=== PATIENT | female | born 1955 | race African-American/Black ===

== ENCOUNTER → 2016-10-31 | Outpatient (CLI) | payer MEDICARE, MEDICAID ==
[~2016-10-31] MED LIST: CLON0.1T PO; FOS1G PO; INSU100C11 SQ; LEVEMIR; RENAVITE; VICODIN
== END | disposition home or self-care (01) ==
LOC: MRI 13:53
PROVIDERS: ATTEND Neurological Surgery
DX: M47.896 Other spondylosis, lumbar region (principal); M43.16 Spondylolisthesis, lumbar region; M48.06 Spinal stenosis, lumbar region; M51.36 Other intervertebral disc degeneration, lumbar region
CPT/HCPCS: 72148

== ENCOUNTER → 2016-11-08 | Outpatient (CLI) | payer MEDICARE, MEDICAID | END | disposition home or self-care (01) | LOC: RAD 09:44 | PROVIDERS: ATTEND Neurological Surgery | DX: Z01.818 Encounter for other preprocedural examination (principal); I51.7 Cardiomegaly; M48.06 Spinal stenosis, lumbar region; J98.11 Atelectasis; Z98.1 Arthrodesis status | CPT/HCPCS: 71020; 93005 ==

== ENCOUNTER → 2016-11-12 | Outpatient (CLI) | payer MEDICARE, MEDICAID ==
[~2016-11-12] MED LIST changes: +AMLO10TA80 PO; +ATOR20TA65 PO; +CHOL500010 PO; +DIPH50CA4 PO; +DULO60CA63 PO; +ESTR1TAB95 PO; +FOLI1TAB87 PO; +GABA800T97 PO; +HYDR-4005; +LATA2.5D2 BOTHEYE; +NPH,100V SQ; +SEVE800T8 PO; +VALS160T23 PO
[2016-11-12 12:40] LABS: PROTHROMBIN TIME 10.4 sec
[2016-11-12 12:43] LABS: BASOPHILS % 0.7 % (0.0-2.0); EOSINOPHILS % 1.5 % (0.0-5.0); HEMATOCRIT. 35.4 % (36.0-48.0); HEMOGLOBIN. 11.5 g/dL (12.0-16.0); LYMPHOCYTES % 21.6 % (20.0-50.0); MEAN CORPUSCULAR HEMOGLOBIN 28.1 pg (28.0-32.0); MEAN CORPUSCULAR HGB CONC 32.3 g/dL (31.0-37.0); MEAN PLATELET VOLUME 7.6 fl (7.4-10.4); MONOCYTES % 6.5 % (2.0-8.0); NEUTROPHILS % 69.7 % (40.0-76.0); PLATELET 297 x1000/uL (130-400); RED BLOOD CELL COUNT 4.07 mill/uL (4.2-5.4); RED CELL DISTRIBUTION WIDTH 19.4 % (11.6-14.6); WHITE BLOOD COUNT 8.7 x1000/uL (4.5-11.0)
[2016-11-12 12:49] LABS: DIFFERENTIAL COMMENT 1
[2016-11-12 13:03] LABS: ALANINE AMINOTRANSFERASE 27 IU/L (13-61); ALBUMIN 3.2 g/dL (3.4-5.0); ANION GAP 14; CALCIUM 8.9 mg/dL (8.5-10.1); CARBON DIOXIDE 34 mEq/L (21-32); CHLORIDE 92 mEq/L (98-107); INDEX HEMOLYSI 2 (1-3); INDEX ICTERIC 1 (1-4); INDEX LIPEMIC 1 (1-3); UREA NITROGEN BLOOD 17 mg/dL (7-21); eGFR 8 mL/min (>60)
== END | disposition home or self-care (01) ==
LOC: LAB 12:01
PROVIDERS: ATTEND Neurological Surgery
DX: M48.06 Spinal stenosis, lumbar region (principal); M43.26 Fusion of spine, lumbar region
CPT/HCPCS: 36415; 80053; 85025; 85610; 85730; 86850; 86900

== ENCOUNTER 2016-11-18 05:19 | Inpatient (IN) | payer MEDICARE, MEDICAID ==
[~2016-11-18] VITALS: Ht 162.6 cm; Wt 98.0 kg
[~2016-11-18 05:19] MED LIST changes: -AMLO10TA80 PO; -ATOR20TA65 PO; -CHOL500010 PO; -DIPH50CA4 PO; -DULO60CA63 PO; -ESTR1TAB95 PO; -FOLI1TAB87 PO; -GABA800T97 PO; -HYDR-4005; -LATA2.5D2 BOTHEYE; -NPH,100V SQ; -SEVE800T8 PO; -VALS160T23 PO
[2016-11-18] MEDS ORDERED: INSULIN NPH (HUMULIN-N) 100 UNITS/ML 3ML VIAL SUBCUT ONE (06:45)
[2016-11-18] MEDS ORDERED: DEXT 5%/0.45% NACL 1000ML 1,000 ML IV SCH (06:59)
[2016-11-18] MEDS ORDERED: SODIUM CHLORIDE 0.9% 500 ML IV ONE (07:00)
[2016-11-18] MEDS ORDERED: DEXTROSE 50% WATER 50ML SYRINGE IV PRN (07:00)
[2016-11-18] MEDS ORDERED: DOCUSATE SODIUM 100MG CAPSULE PO PRN (07:00)
[2016-11-18] MEDS ORDERED: MORPHINE SULFATE 2 MG/ML CPJ (NOT FOR IM USE) IV PRN (07:30)
[2016-11-18] MEDS ORDERED: CEFAZOLIN SODIUM 1000MG/VIAL ONE (08:02)
[2016-11-18] MEDS ORDERED: ROCURONIUM BROMIDE 10MG/ML VIAL 5ML IV ONE (08:02)
[2016-11-18] MEDS ORDERED: DEXAMETHASONE 4MG/ML 1ML VIAL ONE (08:02)
[2016-11-18] MEDS ORDERED: CHOL500010 PO (08:45)
[2016-11-18] MEDS: BLOOD SUGAR DIAGNOSTIC STRIP TEST SCH ×4 (08:45→21:00)
[2016-11-18] MEDS ORDERED: ATOR20TA65 PO (08:45)
[2016-11-18] MEDS ORDERED: AMLO10TA80 PO (08:45)
[2016-11-18] MEDS ORDERED: FOLI1TAB87 PO (08:45)
[2016-11-18] MEDS ORDERED: SEVE800T8 PO (08:45)
[2016-11-18] MEDS ORDERED: ESTR1TAB95 PO (08:45)
[2016-11-18] MEDS ORDERED: DULO60CA63 PO (08:45)
[2016-11-18] MEDS ORDERED: NPH,100V SQ (08:45)
[2016-11-18] MEDS ORDERED: DIPH50CA4 PO (08:45)
[2016-11-18] MEDS ORDERED: VALS160T23 PO (08:45)
[2016-11-18] MEDS ORDERED: GABA800T97 PO (08:47)
[2016-11-18] MEDS ORDERED: HYDR-4005 (08:50)
[2016-11-18] MEDS ORDERED: NEOSTIGMINE METHYLSULFATE 1MG/ML 10 ML VIAL ONE (09:50)
[2016-11-18] MEDS ORDERED: GLYCOPYRROLATE 0.2 MG/ML 2ML VIAL ONE (09:50)
[2016-11-18] MEDS ORDERED: VASOPRESSIN 20 UNIT/ML 1ML ONE (10:19)
[2016-11-18] MEDS: INSULIN LISPRO 100 UNITS/ML SUBCUT SCH ×3 (12:00→22:39)
[2016-11-18] MEDS: ONDANSETRON HCL 4MG/2ML VIAL IV PRN (12:47)
[2016-11-18] MEDS: HYDROCODONE/ACETAMINOPHEN 10/325MG TABLET PO PRN (12:48)
[2016-11-18] MEDS ORDERED: CEFAZOLIN SODIUM 1000MG/VIAL IV SCH (14:00)
[2016-11-18 17:08] LABS: HEMATOCRIT. 31.8 % (36.0-48.0); HEMOGLOBIN. 10.3 g/dL (12.0-16.0); MEAN CORPUSCULAR HGB CONC 32.2 g/dL (31.0-37.0); MEAN CORPUSCULAR VOLUME 89.9 fL (81.0-99.0); MEAN PLATELET VOLUME 8.5 fl (7.4-10.4); PLATELET 170 x1000/uL (130-400); RED BLOOD CELL COUNT 3.54 mill/uL (4.2-5.4); RED CELL DISTRIBUTION WIDTH 27.2 % (11.6-14.6); WHITE BLOOD COUNT 11.9 x1000/uL (4.5-11.0)
[2016-11-18 17:09] LABS: DIFFERENTIAL COMMENT 1
[2016-11-18] MEDS: DIPHENHYDRAMINE 50MG/ML VIAL IV PRN (18:34)
[2016-11-18] MEDS: HYDROMORPHONE HCL/PF 2MG/ML CPJ IV PRN (18:35)
[2016-11-18] MEDS: CLONIDINE 0.1MG TABLET PO PRN (18:36)
[2016-11-18 20:56] LABS: PLATELET ESTIMATE NORMAL
[2016-11-18 20:59] LABS: ANISOCYTOSIS 3+; HYPOCHROMASIA 1+
[2016-11-19] MEDS: IPRATROPIUM/ALBUTEROL 0.5-3(2.5)MG/3ML NEB INH SCH ×4 (00:16→20:27)
[2016-11-19] MEDS: DIPHENHYDRAMINE 50MG/ML VIAL IV PRN ×3 (00:27→20:46)
[2016-11-19] MEDS: HYDROMORPHONE HCL/PF 2MG/ML CPJ IV PRN ×4 (02:48→18:03)
[2016-11-19] MEDS: ACETAMINOPHEN 325MG TABLET PO PRN (03:18)
[2016-11-19 05:40] LABS: BASOPHILS % 0.3 % (0.0-2.0); HEMATOCRIT. 31.2 % (36.0-48.0); HEMOGLOBIN. 10.1 g/dL (12.0-16.0); LYMPHOCYTES % 8.2 % (20.0-50.0); MEAN CORPUSCULAR HEMOGLOBIN 29.6 pg (28.0-32.0); MEAN CORPUSCULAR HGB CONC 32.5 g/dL (31.0-37.0); MEAN CORPUSCULAR VOLUME 91.2 fL (81.0-99.0); MONOCYTES % 5.3 % (2.0-8.0); NEUTROPHILS % 86.2 % (40.0-76.0); RED BLOOD CELL COUNT 3.42 mill/uL (4.2-5.4); RED CELL DISTRIBUTION WIDTH 27.6 % (11.6-14.6)
[2016-11-19 05:50] LABS: ALANINE AMINOTRANSFERASE 32 IU/L (13-61); ALBUMIN 3.1 g/dL (3.4-5.0); ANION GAP 20; CALCIUM 8.2 mg/dL (8.5-10.1); CARBON DIOXIDE 23 mEq/L (21-32); CHLORIDE 97 mEq/L (98-107); INDEX HEMOLYSI 2 (1-3); INDEX ICTERIC 1 (1-4); INDEX LIPEMIC 1 (1-3); UREA NITROGEN BLOOD 35 mg/dL (7-21); eGFR 6 mL/min (>60)
[2016-11-19] MEDS: BLOOD SUGAR DIAGNOSTIC STRIP TEST SCH ×4 (05:57→20:47)
[2016-11-19 06:08] LABS: DIFFERENTIAL COMMENT 1
[2016-11-19] MEDS: INSULIN LISPRO 100 UNITS/ML SUBCUT SCH ×4 (06:32→20:45)
[2016-11-19] MEDS ORDERED: CEFAZOLIN 1000MG PREMIX 50 ML IV SCH (08:00)
[2016-11-19] MEDS ORDERED: LACTULOSE 20G/30ML UDC PO PRN (11:00)
[2016-11-19] MEDS ORDERED: [UNRECOGNIZED DRUG - OTHER] PO SCH (11:15)
[2016-11-19] MEDS ORDERED: SEVELAMER CARBONATE 800 MG TABLET PO SCH (12:00)
[2016-11-19] MEDS ORDERED: MEDICATION NOT ON FORMULARY EA (Cholecalciferol (Vitamin D3) (Vitamin D3) 5,000 UNIT) PO SCH (13:15)
[2016-11-19] MEDS ORDERED: MEDICATION NOT ON FORMULARY EA (Folic Acid/Vitamin B Comp W-C (Rena-Vite Rx Tablet) 1 MG PO SCH (13:15)
[2016-11-19] MEDS ORDERED: LATA2.5D2 BOTHEYE (13:18)
[2016-11-19] MEDS: FOLIC ACID/VITAMIN B COMP W-C TABLET PO SCH (14:35)
[2016-11-19] MEDS: DULOXETINE HCL 60MG DR CAPSULE PO SCH (14:35)
[2016-11-19] MEDS: ATORVASTATIN CALCIUM 20MG TABLET PO SCH (14:35)
[2016-11-19] MEDS: ONDANSETRON HCL 4MG/2ML VIAL IV PRN (15:57)
[2016-11-19] MEDS: LORAZEPAM 2MG/ML CPJ IV PRN (16:01)
[2016-11-19] MEDS ORDERED: LANTHANUM CARBONATE 1000 MG PO SCH (17:00)
[2016-11-19] MEDS: LANTHANUM CARBONATE 500MG CHEW TABLET PO SCH (17:48)
[2016-11-19] MEDS: HYDROCODONE/ACETAMINOPHEN 10/325MG TABLET PO PRN (20:44)
[2016-11-19] MEDS ORDERED: LOSARTAN POTASSIUM 100 MG TABLET PO SCH (21:30)
[2016-11-20] MEDS: HYDROMORPHONE HCL/PF 2MG/ML CPJ IV PRN ×4 (00:26→21:04)
[2016-11-20] MEDS: LORAZEPAM 2MG/ML CPJ IV PRN ×2 (00:35→18:19)
[2016-11-20 00:42] LABS: CREATINE KINASE MB FRACTION 2.8 ng/mL (0.5-3.6)
[2016-11-20 00:46] LABS: T4 FREE 1.93 ng/dL (0.76-1.46); THYROID STIMULATING HORMONE 0.51 uIU/mL (0.36-3.74)
[2016-11-20 02:04] LABS: TROPONIN I 0.44 ng/mL (0.00-0.04)
[2016-11-20 05:41] LABS: BASOPHILS % 0.5 % (0.0-2.0); HEMATOCRIT. 26.1 % (36.0-48.0); HEMOGLOBIN. 8.2 g/dL (12.0-16.0); LYMPHOCYTES % 10.7 % (20.0-50.0); MEAN CORPUSCULAR HEMOGLOBIN 28.6 pg (28.0-32.0); MEAN CORPUSCULAR HGB CONC 31.3 g/dL (31.0-37.0); MEAN CORPUSCULAR VOLUME 91.3 fL (81.0-99.0); MEAN PLATELET VOLUME 8.6 fl (7.4-10.4); MONOCYTES % 13.4 % (2.0-8.0); NEUTROPHILS % 75.4 % (40.0-76.0); PLATELET 127 x1000/uL (130-400); RED BLOOD CELL COUNT 2.86 mill/uL (4.2-5.4); RED CELL DISTRIBUTION WIDTH 26.7 % (11.6-14.6)
[2016-11-20 05:50] LABS: DIFFERENTIAL COMMENT 1
[2016-11-20] MEDS: BLOOD SUGAR DIAGNOSTIC STRIP TEST SCH ×4 (06:24→21:00)
[2016-11-20 06:36] LABS: CREATINE KINASE MB FRACTION 1.9 ng/mL (0.5-3.6); TROPONIN I 0.3 ng/mL (0.00-0.04)
[2016-11-20] MEDS: INSULIN LISPRO 100 UNITS/ML SUBCUT SCH ×4 (06:49→21:00)
[2016-11-20 06:59] LABS: CALCIUM 7.7 mg/dL (8.5-10.1)
[2016-11-20] MEDS: IPRATROPIUM/ALBUTEROL 0.5-3(2.5)MG/3ML NEB INH SCH ×3 (07:40→20:29)
[2016-11-20] MEDS ORDERED: CHOLECALCIFEROL (D3) 1000 UNIT TABLET PO SCH (09:00)
[2016-11-20] MEDS ORDERED: VALSARTAN 160 MG PO SCH (09:00)
[2016-11-20] MEDS ORDERED: ERGOCALCIFEROL 50000UNITS CAPSULE PO SCH (09:00)
[2016-11-20 09:20] LABS: BASOPHILS % 0.9 % (0.0-2.0); EOSINOPHILS % 0.1 % (0.0-5.0); HEMATOCRIT. 26.6 % (36.0-48.0); HEMOGLOBIN. 8.8 g/dL (12.0-16.0); LYMPHOCYTES % 8.8 % (20.0-50.0); MEAN CORPUSCULAR HEMOGLOBIN 29.3 pg (28.0-32.0); MEAN CORPUSCULAR HGB CONC 32.9 g/dL (31.0-37.0); MEAN PLATELET VOLUME 8.4 fl (7.4-10.4); MONOCYTES % 12.2 % (2.0-8.0); PLATELET 161 x1000/uL (130-400); RED BLOOD CELL COUNT 2.99 mill/uL (4.2-5.4); RED CELL DISTRIBUTION WIDTH 26.9 % (11.6-14.6); WHITE BLOOD COUNT 14.6 x1000/uL (4.5-11.0)
[2016-11-20 09:22] LABS: DIFFERENTIAL COMMENT 1
[2016-11-20] MEDS: LOSARTAN POTASSIUM 100 MG TABLET PO SCH (09:36)
[2016-11-20] MEDS: LANTHANUM CARBONATE 500MG CHEW TABLET PO SCH ×3 (09:37→18:19)
[2016-11-20] MEDS: ATORVASTATIN CALCIUM 20MG TABLET PO SCH (09:37)
[2016-11-20] MEDS: FOLIC ACID/VITAMIN B COMP W-C TABLET PO SCH (09:37)
[2016-11-20] MEDS: AMLODIPINE 10MG TABLET PO SCH (09:37)
[2016-11-20] MEDS: DULOXETINE HCL 60MG DR CAPSULE PO SCH (09:37)
[2016-11-20] MEDS: INSULIN NPH (HUMULIN-N) 100 UNITS/ML 3ML VIAL SUBCUT SCH (09:47)
[2016-11-20] MEDS: ESTROGENS,CONJUGATED 0.625MG TABLET PO SCH (12:41)
[2016-11-20] MEDS: MEDROXYPROGESTERONE ACET 2.5MG TABLET PO SCH (12:41)
[2016-11-20] MEDS: HYDROCODONE/ACETAMINOPHEN 10/325MG TABLET PO PRN (12:43)
[2016-11-20] MEDS: CLONIDINE 0.1MG TABLET PO PRN (16:22)
[2016-11-20 16:35] LABS: CREATINE KINASE MB FRACTION 1.6 ng/mL (0.5-3.6); TROPONIN I 0.25 ng/mL (0.00-0.04)
[2016-11-20] MEDS ORDERED: EPOETIN ALFA 10000UNITS/ML VIAL SUBCUT SCH (21:00)
[2016-11-21] MEDS: LORAZEPAM 2MG/ML CPJ IV PRN ×2 (00:20→13:23)
[2016-11-21] MEDS: HYDROMORPHONE HCL/PF 2MG/ML CPJ IV PRN ×3 (00:57→17:10)
[2016-11-21] MEDS: IPRATROPIUM/ALBUTEROL 0.5-3(2.5)MG/3ML NEB INH SCH ×5 (01:23→21:55)
[2016-11-21] MEDS: DIPHENHYDRAMINE 50MG/ML VIAL IV PRN (05:57)
[2016-11-21 07:04] LABS: BASOPHILS % 0.3 % (0.0-2.0); EOSINOPHILS % 0.3 % (0.0-5.0); HEMOGLOBIN. 8.1 g/dL (12.0-16.0); LYMPHOCYTES % 11.6 % (20.0-50.0); MEAN CORPUSCULAR HEMOGLOBIN 28.6 pg (28.0-32.0); MEAN CORPUSCULAR HGB CONC 32.3 g/dL (31.0-37.0); MEAN CORPUSCULAR VOLUME 88.6 fL (81.0-99.0); MEAN PLATELET VOLUME 9.2 fl (7.4-10.4); MONOCYTES % 10.2 % (2.0-8.0); NEUTROPHILS % 77.6 % (40.0-76.0); PLATELET 169 x1000/uL (130-400); RED BLOOD CELL COUNT 2.82 mill/uL (4.2-5.4); WHITE BLOOD COUNT 13.1 x1000/uL (4.5-11.0)
[2016-11-21 07:21] LABS: DIFFERENTIAL COMMENT 1
[2016-11-21] MEDS: BLOOD SUGAR DIAGNOSTIC STRIP TEST SCH ×4 (07:42→21:00)
[2016-11-21] MEDS: INSULIN LISPRO 100 UNITS/ML SUBCUT SCH ×4 (08:10→23:58)
[2016-11-21 08:38] LABS: CALCIUM 8.2 mg/dL (8.5-10.1)
[2016-11-21] MEDS: INSULIN NPH (HUMULIN-N) 100 UNITS/ML 3ML VIAL SUBCUT SCH (09:00)
[2016-11-21] MEDS: AMLODIPINE 10MG TABLET PO SCH (09:00)
[2016-11-21] MEDS: LOSARTAN POTASSIUM 100 MG TABLET PO SCH (09:19)
[2016-11-21] MEDS: ESTROGENS,CONJUGATED 0.625MG TABLET PO SCH (09:19)
[2016-11-21] MEDS: LANTHANUM CARBONATE 500MG CHEW TABLET PO SCH ×3 (09:19→18:32)
[2016-11-21] MEDS: ATORVASTATIN CALCIUM 20MG TABLET PO SCH (09:22)
[2016-11-21] MEDS: FOLIC ACID/VITAMIN B COMP W-C TABLET PO SCH (09:22)
[2016-11-21] MEDS: DULOXETINE HCL 60MG DR CAPSULE PO SCH (09:31)
[2016-11-21] MEDS: ACETAMINOPHEN 325MG TABLET PO PRN (21:12)
[2016-11-22] MEDS: HYDROCODONE/ACETAMINOPHEN 10/325MG TABLET PO PRN ×2 (01:00→12:09)
[2016-11-22] MEDS: IPRATROPIUM/ALBUTEROL 0.5-3(2.5)MG/3ML NEB INH SCH (02:58)
[2016-11-22] MEDS: BLOOD SUGAR DIAGNOSTIC STRIP TEST SCH (07:08)
[2016-11-22 07:17] LABS: BASOPHILS % 0.4 % (0.0-2.0); EOSINOPHILS % 0.8 % (0.0-5.0); HEMATOCRIT. 27.2 % (36.0-48.0); HEMOGLOBIN. 8.8 g/dL (12.0-16.0); LYMPHOCYTES % 10.9 % (20.0-50.0); MEAN CORPUSCULAR HEMOGLOBIN 28.4 pg (28.0-32.0); MEAN CORPUSCULAR HGB CONC 32.5 g/dL (31.0-37.0); MEAN CORPUSCULAR VOLUME 87.2 fL (81.0-99.0); MEAN PLATELET VOLUME 8.9 fl (7.4-10.4); MONOCYTES % 11.6 % (2.0-8.0); NEUTROPHILS % 76.3 % (40.0-76.0); PLATELET 200 x1000/uL (130-400); RED BLOOD CELL COUNT 3.12 mill/uL (4.2-5.4); RED CELL DISTRIBUTION WIDTH 22.9 % (11.6-14.6); WHITE BLOOD COUNT 11.7 x1000/uL (4.5-11.0)
[2016-11-22 07:46] LABS: CALCIUM 8.8 mg/dL (8.5-10.1)
[2016-11-22 07:49] LABS: DIFFERENTIAL COMMENT 1
[2016-11-22] MEDS: INSULIN LISPRO 100 UNITS/ML SUBCUT SCH (07:50)
[2016-11-22 07:51] LABS: ADD RBC MORPHOLOGY YES
[2016-11-22] MEDS: LOSARTAN POTASSIUM 100 MG TABLET PO SCH (09:51)
[2016-11-22] MEDS: LANTHANUM CARBONATE 500MG CHEW TABLET PO SCH (09:52)
[2016-11-22] MEDS: DULOXETINE HCL 60MG DR CAPSULE PO SCH (09:52)
[2016-11-22] MEDS: ESTROGENS,CONJUGATED 0.625MG TABLET PO SCH (09:52)
[2016-11-22] MEDS: ATORVASTATIN CALCIUM 20MG TABLET PO SCH (09:52)
[2016-11-22] MEDS: MEDROXYPROGESTERONE ACET 2.5MG TABLET PO SCH (09:53)
[2016-11-22] MEDS: AMLODIPINE 10MG TABLET PO SCH (09:53)
[2016-11-22] MEDS: FOLIC ACID/VITAMIN B COMP W-C TABLET PO SCH (09:53)
[2016-11-22] MEDS: INSULIN NPH (HUMULIN-N) 100 UNITS/ML 3ML VIAL SUBCUT SCH (09:55)
[2016-11-22 12:09] VITALS: BP 143/66
[2016-11-22 13:37] LABS: ANISOCYTOSIS 3+; PLATELET ESTIMATE NORMAL
== END 2016-11-22 12:15 | disposition home or self-care (01) | DRG 459 ==
LOC: OR 05:19 → MICUSO 05:20 → 7WST 11-20 22:04 → 6EST 11-21 10:42
PROVIDERS: ADMIT Neurological Surgery; ATTEND Neurological Surgery
PROC: 0SG0071 Fusion of Lumbar Vertebral Joint with Autologous Tissue Substitute, Posterior Approach, Posterior Column, Open Approach (ICD-10-PCS; 2016-11-18)
PROC: 5A1D60Z (ICD-10-PCS; 2016-11-18)
PROC: 0SG00ZJ (ICD-10-PCS; 2016-11-18)
PROC: 0ST20ZZ Resection of Lumbar Vertebral Disc, Open Approach (ICD-10-PCS; principal; 2016-11-18 07:00)
PROC: 30233N1 Transfusion of Nonautologous Red Blood Cells into Peripheral Vein, Percutaneous Approach (ICD-10-PCS; 2016-11-21)
DX: M48.06 Spinal stenosis, lumbar region (principal); N18.6 End stage renal disease; I12.0 Hypertensive chronic kidney disease with stage 5 chronic kidney disease or end stage renal disease; E46 Unspecified protein-calorie malnutrition; E11.22 Type 2 diabetes mellitus with diabetic chronic kidney disease; Z99.2 Dependence on renal dialysis; G57.92 Unspecified mononeuropathy of left lower limb; E87.5 Hyperkalemia; D64.9 Anemia, unspecified; D72.829 Elevated white blood cell count, unspecified; E55.9 Vitamin D deficiency, unspecified; E78.5 Hyperlipidemia, unspecified; F32.9 Major depressive disorder, single episode, unspecified; F41.9 Anxiety disorder, unspecified; G89.4 Chronic pain syndrome; R26.9 Unspecified abnormalities of gait and mobility; M47.896 Other spondylosis, lumbar region; Z88.5 Allergy status to narcotic agent; M47.9 Spondylosis, unspecified; M43.16 Spondylolisthesis, lumbar region
CPT/HCPCS: 36415; 72100; 80048; 80053; 80061; 82550; 82553; 82962; 83036; 83880; 84439; 84443; 84484; 85025; 85379; 86850; 86900; 86920; 87040; 88304; 88311; 93005; 93306; 93970; 94640; 95863; 95925; 95926; 97110; 97162; 97166; 97530; 97760; C1713; J0690; J0885; J1100; J1170; J1200; J1815; J2060; J2270; J2405; J2710; J3490; J7030; J7040; J7050; J7620; P9016

== ENCOUNTER → 2017-02-13 | Outpatient (CLI) | payer MEDICARE, MEDICAID ==
[~2017-02-13] MED LIST changes: +AMLO10TA80 PO; +ATOR20TA65 PO; +CHOL500010 PO; +DIPH50CA4 PO; +DULO60CA63 PO; +ESTR1TAB95 PO; +FOLI1TAB87 PO; +GABA800T97 PO; -INSU100C11 SQ; +LATA2.5D2 BOTHEYE; -LEVEMIR; +NPH,100V SQ; -RENAVITE; +SEVE800T8 PO; +VALS160T23 PO; -VICODIN
== END | disposition home or self-care (01) ==
LOC: RAD 12:00
PROVIDERS: ATTEND Neurological Surgery
DX: M54.5 Low back pain (principal); K57.90 Diverticulosis of intestine, part unspecified, without perforation or abscess without bleeding; I12.0 Hypertensive chronic kidney disease with stage 5 chronic kidney disease or end stage renal disease; E11.22 Type 2 diabetes mellitus with diabetic chronic kidney disease; N18.6 End stage renal disease; Z99.2 Dependence on renal dialysis; D64.9 Anemia, unspecified; Z98.890 Other specified postprocedural states
CPT/HCPCS: 72114

== ENCOUNTER 2017-05-07 10:56 | Inpatient (IN) | payer MEDICARE, MEDICAID ==
[~2017-05-07] VITALS: Ht 167.6 cm; Wt 88.0 kg
[2017-05-07] MEDS ORDERED: ONDANSETRON HCL 4MG/2ML VIAL IV STA (12:40)
[2017-05-07] MEDS ORDERED: MORPHINE SULFATE 4 MG/ML CPJ (NOT FOR IM USE) IV STA (12:40)
[2017-05-07] MEDS ORDERED: MORPHINE SULFATE 2 MG/ML CPJ (NOT FOR IM USE) IV NR ×2 (13:00→16:00)
[2017-05-07 13:23] LABS: EOSINOPHILS % 1.7 % (0.0-5.0); HEMATOCRIT. 36.5 % (36.0-48.0); HEMOGLOBIN. 11.9 g/dL (12.0-16.0); MEAN CORPUSCULAR HEMOGLOBIN 28.3 pg (28.0-32.0); MEAN CORPUSCULAR VOLUME 86.6 fL (81.0-99.0); MEAN PLATELET VOLUME 8.4 fl (7.4-10.4); MONOCYTES % 7.7 % (2.0-8.0); NEUTROPHILS % 71.6 % (40.0-76.0); PLATELET 205 x1000/uL (130-400); RED BLOOD CELL COUNT 4.21 mill/uL (4.2-5.4); RED CELL DISTRIBUTION WIDTH 24.8 % (11.6-14.6)
[2017-05-07 13:29] LABS: CHLORIDE 98 mEq/L (98-107)
[2017-05-07 13:35] LABS: CARBON DIOXIDE 25 mEq/L (21-32)
[2017-05-07 13:48] LABS: PLATELET ESTIMATE NORMAL
[2017-05-07] MEDS ORDERED: IOHEXOL-300 100 ML BOTTLE ONE (14:55)
[2017-05-07 14:57] LABS: PARTIAL THROMBOPLASTIN TIME 27.8 sec (23.4-31.0); PROTHROMBIN TIME 10.1 sec (9.4-11.6)
[2017-05-07] MEDS ORDERED: MORPHINE SULFATE 4 MG/ML CPJ (NOT FOR IM USE) IV ONE (16:00)
[2017-05-07] MEDS ORDERED: ACETAMINOPHEN 325MG TABLET PO PRN (17:45)
[2017-05-07] MEDS ORDERED: DIPHENHYDRAMINE 50MG/ML VIAL IV PRN (17:45)
[2017-05-07] MEDS ORDERED: CLONIDINE 0.1MG TABLET PO PRN (17:45)
[2017-05-07] MEDS ORDERED: ONDANSETRON HCL 4MG/2ML VIAL IV PRN (17:45)
[2017-05-07] MEDS: HYDROCODONE/ACETAMINOPHEN 5/325MG TABLET PO PRN (19:49)
[2017-05-07] MEDS ORDERED: DEXTROSE 50% WATER 50ML SYRINGE IV PRN (20:30)
[2017-05-07] MEDS ORDERED: HYDROMORPHONE HCL/PF 2MG/ML CPJ IV PRN (20:45)
[2017-05-07 20:52] VITALS: BP 155/64
[2017-05-07] MEDS ORDERED: LATANOPROST 0.005% OPHTH DROPS 2.5ML BOTHEYE SCH (21:00)
[2017-05-07] MEDS: BLOOD SUGAR DIAGNOSTIC STRIP TEST SCH (21:43)
[2017-05-07] MEDS: ENOXAPARIN 40MG/0.4ML SYR SUBCUT SCH (21:49)
[2017-05-07] MEDS: INSULIN LISPRO 100 UNITS/ML SUBCUT SCH (21:50)
[2017-05-07] MEDS: ATORVASTATIN CALCIUM 20MG TABLET PO SCH (21:50)
[2017-05-07] MEDS: AMLODIPINE 10MG TABLET PO SCH (21:52)
[2017-05-07 22:15] VITALS: BP 155/75
[2017-05-07] MEDS ORDERED: FOLI0.8T42 PO (23:16)
[2017-05-07] MEDS ORDERED: LATA2.5D2 BOTHEYE (23:16)
[2017-05-07] MEDS ORDERED: VALS160T2 PO (23:16)
[2017-05-07] MEDS ORDERED: ESTR1TAB98 PO (23:16)
[2017-05-08] VITALS: BP 120/56
[2017-05-08 04:00] VITALS: BP 120/55
[2017-05-08] MEDS: HYDROCODONE/ACETAMINOPHEN 5/325MG TABLET PO PRN ×3 (04:58→19:03)
[2017-05-08] MEDS ORDERED: LACT10SO6 PO (05:01)
[2017-05-08] MEDS ORDERED: LACTULOSE 10 GM PO SCH (05:15)
[2017-05-08] MEDS: LACTULOSE 20G/30ML UDC PO PRN ×2 (06:10→08:42)
[2017-05-08] MEDS: BLOOD SUGAR DIAGNOSTIC STRIP TEST SCH ×4 (06:32→20:56)
[2017-05-08 06:58] LABS: BASOPHILS % 0.9 % (0.0-2.0); EOSINOPHILS % 3.6 % (0.0-5.0); HEMATOCRIT. 30.6 % (36.0-48.0); HEMOGLOBIN. 10.1 g/dL (12.0-16.0); LYMPHOCYTES % 20.5 % (20.0-50.0); MEAN CORPUSCULAR HEMOGLOBIN 28.6 pg (28.0-32.0); MEAN CORPUSCULAR VOLUME 86.3 fL (81.0-99.0); RED BLOOD CELL COUNT 3.54 mill/uL (4.2-5.4); RED CELL DISTRIBUTION WIDTH 24.1 % (11.6-14.6)
[2017-05-08] MEDS ORDERED: SEVELAMER CARBONATE 800 MG TABLET PO SCH (07:50)
[2017-05-08 07:55] LABS: TROPONIN I 0.02 ng/mL (0.00-0.04)
[2017-05-08 08:00] VITALS: BP 129/54
[2017-05-08] MEDS: INSULIN LISPRO 100 UNITS/ML SUBCUT SCH ×4 (08:40→20:56)
[2017-05-08] MEDS: GABAPENTIN 300MG CAPSULE PO SCH ×3 (08:41→16:15)
[2017-05-08] MEDS: SEVELAMER CARBONATE 800 MG TABLET PO SCH ×3 (08:42→16:15)
[2017-05-08] MEDS ORDERED: FOLIC ACID/VITAMIN B COMP W-C TABLET PO SCH (09:00)
[2017-05-08] MEDS ORDERED: DULOXETINE HCL 60MG DR CAPSULE PO SCH (09:00)
[2017-05-08] MEDS ORDERED: MEDICATION NOT ON FORMULARY EA (Gabapentin 800 MG) PO SCH (09:00)
[2017-05-08] MEDS ORDERED: MEDICATION NOT ON FORMULARY EA (Valsartan (Diovan) 160 MG) PO SCH (09:00)
[2017-05-08] MEDS ORDERED: CHOLECALCIFEROL (D3) 1000 UNIT TABLET PO SCH ×2 (09:00)
[2017-05-08] MEDS: LOSARTAN POTASSIUM 100 MG TABLET PO SCH ×2 (09:00→20:57)
[2017-05-08] MEDS ORDERED: MEDICATION NOT ON FORMULARY EA (Folic Acid/Vitamin B Comp W-C (Rena-Vite Rx Tablet) 1 MG PO SCH (09:00)
[2017-05-08] MEDS ORDERED: [UNRECOGNIZED DRUG - OTHER] PO SCH (09:00)
[2017-05-08] MEDS: AMLODIPINE 10MG TABLET PO SCH (09:00)
[2017-05-08] MEDS ORDERED: VALSARTAN 160 MG PO SCH (09:00)
[2017-05-08] MEDS ORDERED: LANTHANUM CARBONATE 1000 MG PO SCH (09:00)
[2017-05-08] MEDS ORDERED: AMLODIPINE 10MG TABLET PO SCH (09:00)
[2017-05-08] MEDS ORDERED: ESTROGENS,CONJUGATED 0.625MG TABLET PO SCH (09:00)
[2017-05-08] MEDS ORDERED: ENOXAPARIN 40MG/0.4ML SYR SUBCUT SCH (09:00)
[2017-05-08] MEDS: LANTHANUM CARBONATE 500MG CHEW TABLET PO SCH ×3 (11:06→16:22)
[2017-05-08 12:00] VITALS: BP 160/67
[2017-05-08] MEDS ORDERED: PERMETHRIN 5% CREAM 60GM TOP NR (12:00)
[2017-05-08 13:21] LABS: PLATELET 125 x1000/uL (130-400)
[2017-05-08 16:00] VITALS: BP 146/60
[2017-05-08 20:00] VITALS: BP 121/57
[2017-05-08] MEDS: ENOXAPARIN 40MG/0.4ML SYR SUBCUT SCH (20:57)
[2017-05-08] MEDS: ATORVASTATIN CALCIUM 20MG TABLET PO SCH (20:57)
[2017-05-08] MEDS ORDERED: LATANOPROST 0.005% OPHTH DROPS 2.5ML BOTHEYE SCH (21:00)
[2017-05-09] VITALS: BP 139/60
[2017-05-09 08:30] VITALS: BP 145/64
[2017-05-09] MEDS: AMLODIPINE 10MG TABLET PO SCH (09:00)
[2017-05-09] MEDS: LOSARTAN POTASSIUM 100 MG TABLET PO SCH (09:00)
[2017-05-09] MEDS: INSULIN LISPRO 100 UNITS/ML SUBCUT SCH ×2 (09:40→13:13)
[2017-05-09 10:12] LABS: BASOPHILS % 1.1 % (0.0-2.0); HEMATOCRIT. 33.4 % (36.0-48.0); HEMOGLOBIN. 10.6 g/dL (12.0-16.0); LYMPHOCYTES % 18.8 % (20.0-50.0); MEAN CORPUSCULAR VOLUME 87.9 fL (81.0-99.0); MEAN PLATELET VOLUME 9.3 fl (7.4-10.4); MONOCYTES % 8.2 % (2.0-8.0); NEUTROPHILS % 66.9 % (40.0-76.0); PLATELET 199 x1000/uL (130-400)
[2017-05-09 12:05] VITALS: BP 137/87
[2017-05-09] MEDS: BLOOD SUGAR DIAGNOSTIC STRIP TEST SCH (12:21)
[2017-05-09 12:28] VITALS: BP 145/64
[2017-05-09] MEDS: SEVELAMER CARBONATE 800 MG TABLET PO SCH (13:12)
[2017-05-09] MEDS: LANTHANUM CARBONATE 500MG CHEW TABLET PO SCH (13:12)
== END 2017-05-09 14:20 | disposition home or self-care (01) | DRG 391 ==
LOC: ER 10:56 → EDBEDREQ 15:57 → CANRESERV 16:06 → ENRESERV 16:06 → 6WST 16:42 → EDBEDREQ 16:47 → 6WST 05-08 17:39
PROVIDERS: ADMIT Internal Medicine Nephrology; ATTEND Internal Medicine Nephrology
DX: K59.09 Other constipation (principal); N18.6 End stage renal disease; E11.22 Type 2 diabetes mellitus with diabetic chronic kidney disease; I13.11 Hypertensive heart and chronic kidney disease without heart failure, with stage 5 chronic kidney disease, or end stage renal disease; R10.13 Epigastric pain; K31.9 Disease of stomach and duodenum, unspecified; B86 Scabies; B88.8 Other specified infestations; D25.9 Leiomyoma of uterus, unspecified; L29.9 Pruritus, unspecified; Z91.19 Patient's noncompliance with other medical treatment and regimen; Z99.2 Dependence on renal dialysis; Z88.5 Allergy status to narcotic agent
CPT/HCPCS: 36415; 71010; 74177; 80048; 80053; 82962; 83605; 83690; 84484; 85025; 85610; 85730; 87040; 93005; 96374; 96375; 96376; 99285; J1200; J1650; J1815; J2270; J2405; J7030; Q9967

== ENCOUNTER 2017-05-26 03:32 | Inpatient (IN) | payer MEDICARE, MEDICAID ==
[2017-05-26] VITALS (9 sets, daily range): BP systolic 125–167; BP diastolic 64–95
[~2017-05-26] VITALS: Ht 170.2 cm; Wt 92.8 kg
[~2017-05-26 03:32] MED LIST changes: -ESTR1TAB95 PO; +ESTR1TAB98 PO; +FOLI0.8T42 PO; -FOLI1TAB87 PO; +LACT10SO6 PO; +VALS160T2 PO; -VALS160T23 PO
[2017-05-26] MEDS ORDERED: ONDANSETRON HCL 4MG/2ML VIAL IV STA (03:55)
[2017-05-26] MEDS ORDERED: MORPHINE SULFATE 4 MG/ML CPJ (NOT FOR IM USE) IV STA (03:55)
[2017-05-26 05:19] LABS: BASOPHILS % 0.8 % (0.0-2.0); EOSINOPHILS % 1.9 % (0.0-5.0); HEMATOCRIT. 38.1 % (36.0-48.0); HEMOGLOBIN. 12.2 g/dL (12.0-16.0); LYMPHOCYTES % 12.4 % (20.0-50.0); MEAN CORPUSCULAR HEMOGLOBIN 27.2 pg (28.0-32.0); MEAN CORPUSCULAR VOLUME 85.2 fL (81.0-99.0); MEAN PLATELET VOLUME 8.5 fl (7.4-10.4); NEUTROPHILS % 79.9 % (40.0-76.0); PLATELET 347 x1000/uL (130-400); RED BLOOD CELL COUNT 4.47 mill/uL (4.2-5.4); RED CELL DISTRIBUTION WIDTH 21.9 % (11.6-14.6)
[2017-05-26] MEDS ORDERED: PIPERACILLIN/TAZ 3.375G PREMIX 50 ML IV ONE (05:30)
[2017-05-26] MEDS ORDERED: VANCOMYCIN 1 G PREMIX 200 ML IV ONE (05:30)
[2017-05-26 05:35] LABS: CARBON DIOXIDE 20 mEq/L (21-32); CHLORIDE 95 mEq/L (98-107); TROPONIN I < 0.02 ng/mL (0.00-0.04)
[2017-05-26] MEDS ORDERED: INSULIN REGULAR (HUMULIN R) 300UNITS/3ML IV ONE (06:00)
[2017-05-26] MEDS ORDERED: DEXTROSE 50% WATER 50ML SYRINGE IV ONE (06:00)
[2017-05-26] MEDS ORDERED: SODIUM BICARBONATE 8.4% 1 MEQ/ML 50ML SYR IV ONE (06:00)
[2017-05-26] MEDS ORDERED: ACETAMINOPHEN 325MG TABLET PO PRN ×2 (06:00→07:30)
[2017-05-26] MEDS ORDERED: IPRATROPIUM BROMIDE (0.02%) 0.5MG/2.5ML NEB HHN STA (06:07)
[2017-05-26] MEDS ORDERED: ALBUTEROL (0.083%) 2.5MG/3ML NEB HHN STA (06:07)
[2017-05-26] MEDS ORDERED: CLONIDINE 0.1MG TABLET PO PRN (07:30)
[2017-05-26] MEDS ORDERED: ONDANSETRON HCL 4MG/2ML VIAL IV PRN (07:30)
[2017-05-26] MEDS ORDERED: DOCUSATE SODIUM 100MG CAPSULE PO PRN (09:00)
[2017-05-26] MEDS ORDERED: METHYLPREDNISOLONE SOD SUCC 40 MG/ML VIAL IV SCH (10:00)
[2017-05-26] MEDS ORDERED: LEVOFLOXACIN 500MG PREMIX 100 ML IV NR (10:00)
[2017-05-26] MEDS ORDERED: PNEUMOCOCCAL 23-VAL P-SAC VAC 0.5 ML IM ONE (11:00)
[2017-05-26] MEDS ORDERED: MORPHINE SULFATE 2 MG/ML CPJ (NOT FOR IM USE) IV PRN (14:00)
[2017-05-26] MEDS: ENOXAPARIN 40MG/0.4ML SYR SUBCUT SCH (14:08)
[2017-05-26] MEDS: DIPHENHYDRAMINE 25MG CAPSULE PO PRN ×2 (15:04→23:50)
[2017-05-26] MEDS ORDERED: DEXTROSE 50% WATER 50ML SYRINGE IV PRN (15:30)
[2017-05-26] MEDS: BLOOD SUGAR DIAGNOSTIC STRIP TEST SCH ×2 (16:34→21:17)
[2017-05-26] MEDS: INSULIN LISPRO 100 UNITS/ML SUBCUT SCH ×2 (17:00→21:00)
[2017-05-26] MEDS: LANTHANUM CARBONATE 500MG CHEW TABLET PO SCH (17:20)
[2017-05-26 18:52] LABS: TROPONIN I < 0.02 ng/mL (0.00-0.04)
[2017-05-26] MEDS ORDERED: MORPHINE SULFATE 4 MG/ML CPJ (NOT FOR IM USE) IV PRN (19:15)
[2017-05-26 20:36] LABS: T4 FREE 0.98 ng/dL (0.76-1.46)
[2017-05-26] MEDS: LACTULOSE 20G/30ML UDC PO SCH (21:18)
[2017-05-26] MEDS: HYDROCORTISONE 1% OINT 28.35GM TOP SCH (21:18)
[2017-05-26] MEDS: HYDROCODONE/ACETAMINOPHEN 10/325MG TABLET PO PRN (23:49)
[2017-05-27] VITALS (8 sets, daily range): BP systolic 131–167; BP diastolic 54–86
[2017-05-27 00:13] LABS: CREATINE KINASE 92 IU/L (26-192); CREATINE KINASE MB FRACTION 1.5 ng/mL (0.5-3.6); TROPONIN I < 0.02 ng/mL (0.00-0.04)
[2017-05-27] MEDS: IPRATROPIUM/ALBUTEROL 0.5-3(2.5)MG/3ML NEB INH SCH ×2 (00:26→09:00)
[2017-05-27] MEDS: LACTULOSE 20G/30ML UDC PO SCH (05:51)
[2017-05-27] MEDS: HYDROCODONE/ACETAMINOPHEN 10/325MG TABLET PO PRN ×2 (05:59→12:42)
[2017-05-27] MEDS: BLOOD SUGAR DIAGNOSTIC STRIP TEST SCH ×2 (06:18→11:54)
[2017-05-27 06:21] LABS: BASOPHILS % 1.1 % (0.0-2.0); EOSINOPHILS % 2.7 % (0.0-5.0); HEMATOCRIT. 32.1 % (36.0-48.0); HEMOGLOBIN. 10.8 g/dL (12.0-16.0); LYMPHOCYTES % 23.2 % (20.0-50.0); MEAN CORPUSCULAR HEMOGLOBIN 28.4 pg (28.0-32.0); MEAN CORPUSCULAR VOLUME 84.8 fL (81.0-99.0); MEAN PLATELET VOLUME 9.1 fl (7.4-10.4); PLATELET 264 x1000/uL (130-400); RED BLOOD CELL COUNT 3.79 mill/uL (4.2-5.4); RED CELL DISTRIBUTION WIDTH 22.5 % (11.6-14.6)
[2017-05-27] MEDS: INSULIN LISPRO 100 UNITS/ML SUBCUT SCH ×2 (07:20→12:26)
[2017-05-27] MEDS: LANTHANUM CARBONATE 500MG CHEW TABLET PO SCH ×2 (07:49→12:25)
[2017-05-27 08:36] LABS: CHLORIDE 97 mEq/L (98-107)
[2017-05-27] MEDS: HYDROCORTISONE 1% OINT 28.35GM TOP SCH (08:36)
[2017-05-27] MEDS: DIPHENHYDRAMINE 25MG CAPSULE PO PRN (08:36)
[2017-05-27 09:06] LABS: CARBON DIOXIDE 23 mEq/L (21-32); CREATINE KINASE 79 IU/L (26-192); CREATINE KINASE MB FRACTION 1.7 ng/mL (0.5-3.6)
[2017-05-27] MEDS: ENOXAPARIN 40MG/0.4ML SYR SUBCUT SCH (09:12)
[2017-05-27 10:46] LABS: PLATELET ESTIMATE NORMAL
[2017-05-28] MEDS ORDERED: LEVOFLOXACIN 250MG PREMIX 50 ML IV SCH (10:00)
== END 2017-05-27 14:15 | disposition left against medical advice (07) | DRG 871 ==
LOC: ER 03:32 → 3WST 06:02 → EDBEDREQSVC 06:32 → EDBEDREQ 06:35 → ENRESERV 06:36
PROVIDERS: ADMIT Internal Medicine Nephrology; ATTEND Internal Medicine Nephrology
PROC: 5A1D70Z Performance of Urinary Filtration, Intermittent, Less than 6 Hours Per Day (ICD-10-PCS; principal; 2017-05-26)
PROC: 5A1D70Z Performance of Urinary Filtration, Intermittent, Less than 6 Hours Per Day (ICD-10-PCS; 2017-05-27)
DX: A41.9 Sepsis, unspecified organism (principal); J96.00 Acute respiratory failure, unspecified whether with hypoxia or hypercapnia; I13.2 Hypertensive heart and chronic kidney disease with heart failure and with stage 5 chronic kidney disease, or end stage renal disease; N18.6 End stage renal disease; E11.22 Type 2 diabetes mellitus with diabetic chronic kidney disease; E11.51 Type 2 diabetes mellitus with diabetic peripheral angiopathy without gangrene; E87.5 Hyperkalemia; D64.9 Anemia, unspecified; I50.9 Heart failure, unspecified; D72.829 Elevated white blood cell count, unspecified; E78.5 Hyperlipidemia, unspecified; Z53.21 Procedure and treatment not carried out due to patient leaving prior to being seen by health care provider; G83.9 Paralytic syndrome, unspecified; H54.7 Unspecified visual loss; E87.70 Fluid overload, unspecified; M48.061 Spinal stenosis, lumbar region without neurogenic claudication; Z79.4 Long term (current) use of insulin; Z86.73 Personal history of transient ischemic attack (TIA), and cerebral infarction without residual deficits; Z98.1 Arthrodesis status; Z91.15 Patient's noncompliance with renal dialysis; Z88.6 Allergy status to analgesic agent; Z89.421 Acquired absence of other right toe(s); Z79.899 Other long term (current) drug therapy
CPT/HCPCS: 36415; 71010; 80053; 80061; 82550; 82553; 82962; 83036; 83605; 83880; 84132; 84439; 84443; 84484; 85025; 85379; 87040; 90732; 93005; 93306; 94640; 94664; 96361; 96374; 96375; 96376; 99285; J1650; J1815; J1956; J2270; J2405; J2543; J3370; J3490; J7030; J7050; J7611; J7620; Q0163

== ENCOUNTER 2017-08-24 08:13 | Emergency (ER) | payer MEDICARE, MEDICAID ==
[~2017-08-24] VITALS: Ht 162.6 cm; Wt 84.0 kg
[2017-08-24 10:28] LABS: BASOPHILS % 0.5 % (0.0-2.0); EOSINOPHILS % 3.3 % (0.0-5.0); HEMOGLOBIN. 9.4 g/dL (12.0-16.0); LYMPHOCYTES % 12.8 % (20.0-50.0); MEAN CORPUSCULAR HEMOGLOBIN 26.8 pg (28.0-32.0); MEAN CORPUSCULAR VOLUME 82.2 fL (81.0-99.0); MEAN PLATELET VOLUME 7.2 fl (7.4-10.4); MONOCYTES % 6.9 % (2.0-8.0); NEUTROPHILS % 76.5 % (40.0-76.0); PLATELET 266 x1000/uL (130-400); RED BLOOD CELL COUNT 3.53 mill/uL (4.2-5.4); RED CELL DISTRIBUTION WIDTH 20.3 % (11.6-14.6)
[2017-08-24 10:42] LABS: CHLORIDE 100 mEq/L (98-107); TROPONIN I < 0.02 ng/mL (0.00-0.04)
[2017-08-24] MEDS ORDERED: OXYCODONE HCL/ACETAMINOPHEN 5/325MG TABLET PO ONE (10:45)
[2017-08-24] MEDS ORDERED: ACETAMINOPHEN 325MG TABLET PO PRN (12:45)
[2017-08-24] MEDS ORDERED: DOCUSATE SODIUM 100MG CAPSULE PO PRN (12:45)
[2017-08-24] MEDS ORDERED: CLONIDINE 0.1MG TABLET PO PRN (12:45)
[2017-08-24] MEDS ORDERED: IPRATROPIUM/ALBUTEROL 0.5-3(2.5)MG/3ML NEB INH SCH (12:45)
[2017-08-24] MEDS ORDERED: ENOXAPARIN 40MG/0.4ML SYR SUBCUT SCH (12:45)
[2017-08-24] MEDS ORDERED: ONDANSETRON HCL 4MG/2ML VIAL IV PRN (12:45)
[2017-08-24 15:15] VITALS: BP 17/76
== END 2017-08-24 15:50 | disposition left against medical advice (07) ==
LOC: ER 09:28 → EDBEDREQ 12:32 → ER 15:50 → CANBEDREQ 17:02
DX: R07.9 Chest pain, unspecified (principal); M25.571 Pain in right ankle and joints of right foot; E11.22 Type 2 diabetes mellitus with diabetic chronic kidney disease; I51.7 Cardiomegaly; I12.0 Hypertensive chronic kidney disease with stage 5 chronic kidney disease or end stage renal disease; N18.6 End stage renal disease; Z99.2 Dependence on renal dialysis; Z98.890 Other specified postprocedural states
CPT/HCPCS: 36415; 71045; 73600; 80053; 84484; 85025; 85610; 87040; 93005; 93970; 99285

== ENCOUNTER 2017-09-18 06:51 | Emergency (ER) | payer MEDICARE, MEDICAID ==
[~2017-09-18] VITALS: Ht 172.7 cm; Wt 95.0 kg
[2017-09-18 06:56] VITALS: BP 155/57
== END 2017-09-18 07:27 | disposition left against medical advice (07) ==
LOC: ER 06:51
DX: Z76.89 Persons encountering health services in other specified circumstances (principal); I12.0 Hypertensive chronic kidney disease with stage 5 chronic kidney disease or end stage renal disease; N18.6 End stage renal disease; E11.9 Type 2 diabetes mellitus without complications; R56.9 Unspecified convulsions; Z88.5 Allergy status to narcotic agent; Z99.2 Dependence on renal dialysis; Z98.890 Other specified postprocedural states
CPT/HCPCS: 99283

== ENCOUNTER 2017-09-21 09:48 | Inpatient (IN) | payer MEDICARE, MEDICAID ==
[~2017-09-21] VITALS: Ht 165.1 cm; Wt 93.4 kg
[2017-09-21] MEDS ORDERED: CLONIDINE 0.2MG TABLET PO ONE (10:30)
[2017-09-21 11:27] LABS: BASOPHILS % 1.1 % (0.0-2.0); EOSINOPHILS % 3.6 % (0.0-5.0); HEMATOCRIT. 38.3 % (36.0-48.0); HEMOGLOBIN. 12.2 g/dL (12.0-16.0); LYMPHOCYTES % 13.5 % (20.0-50.0); MEAN CORPUSCULAR HEMOGLOBIN 29.2 pg (28.0-32.0); MEAN CORPUSCULAR VOLUME 91.5 fL (81.0-99.0); MEAN PLATELET VOLUME 8.8 fl (7.4-10.4); MONOCYTES % 6.8 % (2.0-8.0); PLATELET 189 x1000/uL (130-400); RED BLOOD CELL COUNT 4.18 mill/uL (4.2-5.4); RED CELL DISTRIBUTION WIDTH 24.9 % (11.6-14.6)
[2017-09-21 11:31] LABS: CHLORIDE 99 mEq/L (98-107)
[2017-09-21 11:34] LABS: INR 0.9; PARTIAL THROMBOPLASTIN TIME 25.9 sec (23.4-31.0); PROTHROMBIN TIME 9.7 sec (9.4-11.6)
[2017-09-21 11:37] LABS: CREATINE KINASE MB FRACTION 2.6 ng/mL (0.5-3.6); TROPONIN I < 0.02 ng/mL (0.00-0.04)
[2017-09-21] MEDS ORDERED: ASPIRIN 325MG EC TABLET PO ONE (12:00)
[2017-09-21 12:13] LABS: PLATELET ESTIMATE NORMAL
[2017-09-21] MEDS ORDERED: CLONIDINE 0.1MG TABLET PO ONE (12:30)
[2017-09-21] MEDS ORDERED: NA PHOS,M-B/NA PHOS,DI-BA ENEMA 118ML PR PRN (13:45)
[2017-09-21] MEDS ORDERED: IPRATROPIUM/ALBUTEROL 0.5-3(2.5)MG/3ML NEB INH PRN (13:45)
[2017-09-21] MEDS ORDERED: DIPHENHYDRAMINE 50MG/ML VIAL IV PRN (13:45)
[2017-09-21] MEDS ORDERED: ACETAMINOPHEN 325MG TABLET PO PRN (13:45)
[2017-09-21] MEDS ORDERED: MAGNESIUM/ALUMINUM HYDROXIDE/SIMETHICONE 30ML UDC PO PRN (13:45)
[2017-09-21] MEDS ORDERED: DOCUSATE SODIUM 100MG CAPSULE PO PRN (13:45)
[2017-09-21] MEDS ORDERED: GUAIFENESIN 200MG/10ML SUGAR FREE UDC PO PRN (13:45)
[2017-09-21] MEDS ORDERED: CLONIDINE 0.1MG TABLET PO PRN (13:45)
[2017-09-21] MEDS ORDERED: ONDANSETRON HCL 4MG/2ML VIAL IV PRN (13:45)
[2017-09-21] MEDS ORDERED: HYDRALAZINE 20MG/ML VIAL IV ONE (15:15)
[2017-09-21 15:23] LABS: CHLORIDE 100 mEq/L (98-107)
[2017-09-21 15:36] LABS: TROPONIN I < 0.02 ng/mL (0.00-0.04)
[2017-09-21] MEDS ORDERED: ENOXAPARIN 30MG/0.3ML SYR SUBCUT SCH (18:23)
[2017-09-21] MEDS ORDERED: LORAZEPAM 0.5MG TABLET PO PRN (18:29)
[2017-09-21] MEDS ORDERED: MORPHINE SULFATE 4 MG/ML CPJ (NOT FOR IM USE) IV PRN (18:29)
[2017-09-21 20:00] VITALS: BP 198/95
[2017-09-21 20:18] VITALS: BP 161/76
[2017-09-21] MEDS ORDERED: SODIUM POLYSTYRENE SULFONATE 15 G/60 ML BOT PO NR (21:45)
[2017-09-22 00:08] VITALS: BP 140/64
[2017-09-22 04:00] VITALS: BP 198/87
[2017-09-22 08:12] VITALS: BP 172/78
[2017-09-22] MEDS ORDERED: AMLODIPINE 10MG TABLET PO SCH (09:00)
[2017-09-22] MEDS ORDERED: LOSARTAN POTASSIUM 100 MG TABLET PO SCH (09:00)
[2017-09-22] MEDS ORDERED: ASPIRIN 81MG EC TABLET PO SCH (09:00)
[2017-09-22] MEDS ORDERED: MEDICATION NOT ON FORMULARY EA (Valsartan (Diovan) 160 MG) PO SCH (09:00)
[2017-09-22 10:02] LABS: BASOPHILS % 0.5 % (0.0-2.0); EOSINOPHILS % 2.8 % (0.0-5.0); HEMATOCRIT. 34.1 % (36.0-48.0); HEMOGLOBIN. 10.8 g/dL (12.0-16.0); LYMPHOCYTES % 9.9 % (20.0-50.0); MEAN CORPUSCULAR HEMOGLOBIN 28.8 pg (28.0-32.0); MEAN PLATELET VOLUME 8.4 fl (7.4-10.4); MONOCYTES % 7.4 % (2.0-8.0); NEUTROPHILS % 79.4 % (40.0-76.0); PLATELET 169 x1000/uL (130-400); RED BLOOD CELL COUNT 3.75 mill/uL (4.2-5.4); RED CELL DISTRIBUTION WIDTH 23.6 % (11.6-14.6)
[2017-09-22 10:11] LABS: CHLORIDE 98 mEq/L (98-107)
[2017-09-22 10:22] LABS: T4 FREE 0.95 ng/dL (0.76-1.46)
== END 2017-09-22 10:15 | disposition left against medical advice (07) | DRG 64 ==
LOC: ER 10:04 → 6WST 12:34 → EDBEDREQ 12:36 → ENRESERV 16:31 → CMPBEDREQ 18:08 → 6WST 09-22 07:23
PROVIDERS: ADMIT Internal Medicine; ATTEND Internal Medicine
DX: I63.9 Cerebral infarction, unspecified (principal); G93.41 Metabolic encephalopathy; I13.2 Hypertensive heart and chronic kidney disease with heart failure and with stage 5 chronic kidney disease, or end stage renal disease; E46 Unspecified protein-calorie malnutrition; N18.6 End stage renal disease; G89.29 Other chronic pain; H54.8 Legal blindness, as defined in USA; I50.9 Heart failure, unspecified; E11.22 Type 2 diabetes mellitus with diabetic chronic kidney disease; E78.00 Pure hypercholesterolemia, unspecified; E78.5 Hyperlipidemia, unspecified; E87.5 Hyperkalemia; G47.00 Insomnia, unspecified; D64.9 Anemia, unspecified; E11.40 Type 2 diabetes mellitus with diabetic neuropathy, unspecified; I25.10 Atherosclerotic heart disease of native coronary artery without angina pectoris; Z53.21 Procedure and treatment not carried out due to patient leaving prior to being seen by health care provider; Z79.4 Long term (current) use of insulin; Z79.899 Other long term (current) drug therapy; Z99.2 Dependence on renal dialysis; Z68.34 Body mass index [BMI] 34.0-34.9, adult; Z88.6 Allergy status to analgesic agent
CPT/HCPCS: 36415; 70450; 71045; 80048; 80053; 82553; 82962; 84439; 84443; 84484; 85025; 85610; 85730; 93005; J0360; J1650

== ENCOUNTER 2017-09-23 04:53 | Inpatient (IN) | payer MEDICARE, MEDICAID ==
[~2017-09-23] VITALS: Ht 162.6 cm; Wt 83.0 kg
[2017-09-23 06:33] LABS: BASOPHILS % 0.4 % (0.0-2.0); HEMATOCRIT. 33.6 % (36.0-48.0); HEMOGLOBIN. 11.1 g/dL (12.0-16.0); LYMPHOCYTES % 7.2 % (20.0-50.0); MEAN CORPUSCULAR HEMOGLOBIN 29.7 pg (28.0-32.0); MEAN CORPUSCULAR VOLUME 89.8 fL (81.0-99.0); MEAN PLATELET VOLUME 9.2 fl (7.4-10.4); MONOCYTES % 7.7 % (2.0-8.0); NEUTROPHILS % 82.7 % (40.0-76.0); PLATELET 155 x1000/uL (130-400); RED BLOOD CELL COUNT 3.74 mill/uL (4.2-5.4); RED CELL DISTRIBUTION WIDTH 23.1 % (11.6-14.6)
[2017-09-23] MEDS ORDERED: CALCIUM GLUCONATE 100MG/ML 10ML VIAL IV ONE (07:30)
[2017-09-23] MEDS ORDERED: FUROSEMIDE 40MG/4ML VIAL IVP ONE (07:45)
[2017-09-23] MEDS ORDERED: CALCIUM GLUCONATE 1000MG in DEXTROSE 5% WATER 50ML IV SCH (08:15)
[2017-09-23 09:00] VITALS: BP 163/79
[2017-09-23] MEDS ORDERED: LORAZEPAM 2MG/ML CPJ IV PRN (09:00)
[2017-09-23] MEDS ORDERED: DOCUSATE SODIUM 100MG CAPSULE PO PRN (09:00)
[2017-09-23] MEDS ORDERED: GUAIFENESIN 200MG/10ML SUGAR FREE UDC PO PRN (09:00)
[2017-09-23] MEDS ORDERED: ONDANSETRON HCL 4MG/2ML VIAL IV PRN (09:00)
[2017-09-23] MEDS ORDERED: ENOXAPARIN 40MG/0.4ML SYR SUBCUT SCH (09:00)
[2017-09-23] MEDS ORDERED: ACETAMINOPHEN 325MG TABLET PO PRN (09:00)
[2017-09-23] MEDS ORDERED: CLONIDINE 0.1MG TABLET PO PRN (09:00)
[2017-09-23] MEDS ORDERED: DIPHENHYDRAMINE 50MG/ML VIAL IV PRN (09:00)
[2017-09-23] MEDS ORDERED: NA PHOS,M-B/NA PHOS,DI-BA ENEMA 118ML PR PRN (09:00)
[2017-09-23] MEDS ORDERED: IPRATROPIUM/ALBUTEROL 0.5-3(2.5)MG/3ML NEB INH PRN (09:00)
[2017-09-23] MEDS ORDERED: MAGNESIUM/ALUMINUM HYDROXIDE/SIMETHICONE 30ML UDC PO PRN (09:00)
[2017-09-23 09:21] VITALS: BP 163/79
[2017-09-23] MEDS ORDERED: ASPIRIN 81MG EC TABLET PO SCH (10:00)
[2017-09-23] MEDS ORDERED: ENOXAPARIN 30MG/0.3ML SYR SUBCUT SCH (10:00)
[2017-09-23 12:00] VITALS: BP 178/88
[2017-09-23 12:01] LABS: T4 FREE 0.92 ng/dL (0.76-1.46)
[2017-09-23] MEDS: MORPHINE SULFATE 4 MG/ML CPJ (NOT FOR IM USE) IV PRN (12:10)
[2017-09-23 16:00] VITALS: BP 165/82
[2017-09-23 17:04] LABS: CHLORIDE 99 mEq/L (98-107)
[2017-09-23 17:11] LABS: CREATINE KINASE 66 IU/L (26-192); CREATINE KINASE MB FRACTION 2.8 ng/mL (0.5-3.6); TROPONIN I < 0.02 ng/mL (0.00-0.04)
[2017-09-23] MEDS ORDERED: MEDICATION NOT ON FORMULARY EA (Cholecalciferol (Vitamin D3) (Vitamin D3) 5,000 UNIT) PO SCH (17:30)
[2017-09-23] MEDS ORDERED: CLONIDINE 0.1MG TABLET PO SCH (17:30)
[2017-09-23] MEDS ORDERED: MEDICATION NOT ON FORMULARY EA (Valsartan (Diovan) 160 MG) PO SCH (17:30)
[2017-09-23] MEDS ORDERED: MEDICATION NOT ON FORMULARY EA (Gabapentin 800 MG) PO SCH (17:30)
[2017-09-23] MEDS ORDERED: DULOXETINE HCL 60MG DR CAPSULE PO SCH (18:30)
[2017-09-23 19:08] LABS: AMMONIA 27 uMol/L (<32)
[2017-09-23 19:09] LABS: ETHANOL BLOOD < 10 mg/dL
[2017-09-23 19:19] LABS: T4 FREE 0.97 ng/dL (0.76-1.46)
[2017-09-23 19:35] LABS: FOLIC ACID (FOLATE) SERUM 18.8 ng/mL (>5.38)
[2017-09-23 20:00] VITALS: BP 184/94
[2017-09-23] MEDS ORDERED: DEXTROSE 50% WATER 50ML SYRINGE IV PRN (20:15)
[2017-09-23] MEDS: LOSARTAN POTASSIUM 50 MG TABLET PO SCH ×2 (21:00→21:12)
[2017-09-23] MEDS: ATORVASTATIN CALCIUM 20MG TABLET PO SCH ×2 (21:00→21:12)
[2017-09-23] MEDS: INSULIN LISPRO 100 UNITS/ML SUBCUT SCH (21:00)
[2017-09-23] MEDS: CLONAZEPAM 0.5MG TABLET PO SCH ×2 (21:12→22:00)
[2017-09-23] MEDS: BLOOD SUGAR DIAGNOSTIC STRIP TEST SCH (21:12)
[2017-09-23] MEDS: GABAPENTIN 400MG CAPSULE PO SCH ×2 (21:12→22:00)
[2017-09-23] MEDS: LATANOPROST 0.005% OPHTH DROPS 2.5ML BOTHEYE SCH ×2 (21:13→23:08)
[2017-09-24] VITALS: BP 165/83
[2017-09-24] MEDS: GABAPENTIN 400MG CAPSULE PO SCH ×2 (00:26→06:21)
[2017-09-24] MEDS: CLONAZEPAM 0.5MG TABLET PO SCH ×2 (00:26→06:21)
[2017-09-24] MEDS: MORPHINE SULFATE 4 MG/ML CPJ (NOT FOR IM USE) IV PRN ×2 (00:35→04:21)
[2017-09-24 01:23] LABS: CREATINE KINASE 49 IU/L (26-192); CREATINE KINASE MB FRACTION 1.8 ng/mL (0.5-3.6); TROPONIN I < 0.02 ng/mL (0.00-0.04)
[2017-09-24 04:00] VITALS: BP 144/61
[2017-09-24 04:21] VITALS: BP 165/83
[2017-09-24] MEDS ORDERED: CHOLECALCIFEROL (D3) 1000 UNIT TABLET PO SCH (06:00)
[2017-09-24] MEDS: BLOOD SUGAR DIAGNOSTIC STRIP TEST SCH (06:19)
[2017-09-24 06:57] LABS: BASOPHILS % 0.9 % (0.0-2.0); EOSINOPHILS % 1.6 % (0.0-5.0); HEMATOCRIT. 37.3 % (36.0-48.0); HEMOGLOBIN. 11.9 g/dL (12.0-16.0); LYMPHOCYTES % 16.2 % (20.0-50.0); MEAN CORPUSCULAR VOLUME 90.7 fL (81.0-99.0); MONOCYTES % 8.5 % (2.0-8.0); NEUTROPHILS % 72.8 % (40.0-76.0); PLATELET 163 x1000/uL (130-400); RED BLOOD CELL COUNT 4.11 mill/uL (4.2-5.4); RED CELL DISTRIBUTION WIDTH 23.2 % (11.6-14.6)
[2017-09-24 07:12] LABS: CHLORIDE 100 mEq/L (98-107)
[2017-09-24] MEDS: INSULIN LISPRO 100 UNITS/ML SUBCUT SCH (07:12)
[2017-09-24 07:18] LABS: CREATINE KINASE 53 IU/L (26-192); CREATINE KINASE MB FRACTION 2.1 ng/mL (0.5-3.6); HDL CHOLESTEROL 81 mg/dL (40-59); LDL CHOLESTEROL 50 mg/dL (5-100)
[2017-09-24] MEDS ORDERED: INSULIN NPH (HUMULIN-N) 100 UNITS/ML 3ML VIAL SUBCUT SCH (08:15)
== END 2017-09-24 08:10 | disposition left against medical advice (07) | DRG 291 ==
LOC: ER 04:53 → 7WST 07:58 → EDBEDREQTM 08:01 → EDBEDREQ 08:01 → ENRESERV 08:11
PROVIDERS: ADMIT Internal Medicine; ATTEND Internal Medicine
DX: I13.2 Hypertensive heart and chronic kidney disease with heart failure and with stage 5 chronic kidney disease, or end stage renal disease (principal); N18.6 End stage renal disease; E11.40 Type 2 diabetes mellitus with diabetic neuropathy, unspecified; E11.22 Type 2 diabetes mellitus with diabetic chronic kidney disease; E46 Unspecified protein-calorie malnutrition; E83.51 Hypocalcemia; M48.02 Spinal stenosis, cervical region; D64.9 Anemia, unspecified; I50.9 Heart failure, unspecified; E78.00 Pure hypercholesterolemia, unspecified; E78.5 Hyperlipidemia, unspecified; D72.829 Elevated white blood cell count, unspecified; H54.7 Unspecified visual loss; E11.51 Type 2 diabetes mellitus with diabetic peripheral angiopathy without gangrene; Z53.21 Procedure and treatment not carried out due to patient leaving prior to being seen by health care provider; F41.9 Anxiety disorder, unspecified; G47.00 Insomnia, unspecified; I25.10 Atherosclerotic heart disease of native coronary artery without angina pectoris; Z79.899 Other long term (current) drug therapy; Z79.4 Long term (current) use of insulin; Z86.73 Personal history of transient ischemic attack (TIA), and cerebral infarction without residual deficits; Z99.2 Dependence on renal dialysis; Z89.411 Acquired absence of right great toe; Z88.6 Allergy status to analgesic agent; Z98.1 Arthrodesis status; Z68.31 Body mass index [BMI] 31.0-31.9, adult
CPT/HCPCS: 36415; 70450; 70551; 71045; 80048; 80053; 80061; 80307; 82140; 82550; 82553; 82607; 82746; 82962; 83036; 83880; 84439; 84443; 84481; 84484; 85025; 85379; 93005; 93306; 96374; 96375; 99285; G0482; J0610; J1200; J1815; J1940; J2060; J2270; J2405; J7030; J7060

== ENCOUNTER → 2017-12-17 | Outpatient (CLI) | payer MEDICARE, MEDICAID | END | disposition home or self-care (01) | LOC: RAD 12:45 | PROVIDERS: ATTEND Neurological Surgery | DX: M54.5 Low back pain (principal) | CPT/HCPCS: 72114 ==

== ENCOUNTER 2018-05-27 08:17 | Inpatient (IN) | payer MEDICARE, MEDICAID ==
[~2018-05-27] VITALS: Ht 162.6 cm; Wt 83.9 kg
[2018-05-27] MEDS ORDERED: ONDANSETRON HCL 4MG/2ML INJ IV STA (10:04)
[2018-05-27 10:43] LABS: BASOPHILS % 1.3 % (0.0-2.0); EOSINOPHILS % 3.5 % (0.0-5.0); HEMATOCRIT. 41.6 % (36.0-48.0); HEMOGLOBIN. 13.8 g/dL (12.0-16.0); MEAN CORPUSCULAR HEMOGLOBIN 27.9 pg (28.0-32.0); MEAN CORPUSCULAR VOLUME 84.3 fL (81.0-99.0); MEAN PLATELET VOLUME 9.8 fl (7.4-10.4); MONOCYTES % 7.3 % (2.0-8.0); NEUTROPHILS % 60.9 % (40.0-76.0); PLATELET 151 x1000/uL (130-400); RED BLOOD CELL COUNT 4.93 mill/uL (4.2-5.4); RED CELL DISTRIBUTION WIDTH 17.6 % (11.6-14.6)
[2018-05-27 10:47] LABS: PARTIAL THROMBOPLASTIN TIME 27.4 sec (23.4-31.0); PROTHROMBIN TIME 9.9 sec (9.1-11.1)
[2018-05-27 10:53] LABS: CHLORIDE 99 mEq/L (98-107)
[2018-05-27 15:50] VITALS: BP 171/109
[2018-05-27 16:00] VITALS: BP 171/109
[2018-05-27] MEDS ORDERED: CLONIDINE 0.2MG TABLET PO PRN (16:45)
[2018-05-27] MEDS ORDERED: DEXTROSE 50% WATER 50ML SYRINGE IV PRN (16:45)
[2018-05-27] MEDS ORDERED: DIPHENHYDRAMINE 25MG CAPSULE PO PRN (17:00)
[2018-05-27] MEDS ORDERED: DIPHENHYDRAMINE 50MG/ML VIAL IV PRN (17:15)
[2018-05-27] MEDS: BLOOD SUGAR DIAGNOSTIC STRIP TEST SCH ×2 (17:18→21:00)
[2018-05-27] MEDS: INSULIN LISPRO 100 UNITS/ML SUBCUT SCH ×2 (17:19→21:00)
[2018-05-27] MEDS: DIPHENHYDRAMINE 25MG CAPSULE PO PRN (17:25)
[2018-05-27] MEDS ORDERED: HYDROCODONE/ACETAMINOPHEN 10/325MG TABLET PO PRN (18:34)
[2018-05-27 20:00] VITALS: BP 130/71
[2018-05-27 21:20] VITALS: BP 108/52
[2018-05-27 23:57] VITALS: BP 125/68
[2018-05-28] MEDS: DIPHENHYDRAMINE 25MG CAPSULE PO PRN ×2 (00:31→08:36)
[2018-05-28 05:00] VITALS: BP 173/77
[2018-05-28] MEDS: BLOOD SUGAR DIAGNOSTIC STRIP TEST SCH ×4 (05:48→21:02)
[2018-05-28] MEDS: INSULIN LISPRO 100 UNITS/ML SUBCUT SCH ×4 (05:48→21:00)
[2018-05-28 08:00] VITALS: BP 179/86
[2018-05-28] MEDS: ENOXAPARIN 30MG/0.3ML SYR SUBCUT SCH (08:36)
[2018-05-28] MEDS: AMLODIPINE 10MG TABLET PO SCH (10:06)
[2018-05-28] MEDS: BENAZEPRIL 10MG TABLET PO SCH (10:06)
[2018-05-28] MEDS: FOLIC ACID/VITAMIN B COMP W-C TABLET PO SCH (10:06)
[2018-05-28] MEDS: HYDRALAZINE HCL 50MG TABLET PO SCH ×2 (11:07→21:02)
[2018-05-28 12:00] VITALS: BP 157/69
[2018-05-28] MEDS ORDERED: ASPI-1159 MT (12:35)
[2018-05-28] MEDS ORDERED: PRO1 MT (12:35)
[2018-05-28] MEDS: SEVELAMER CARBONATE 800 MG TABLET PO SCH ×2 (13:19→18:24)
[2018-05-28 17:45] VITALS: BP 152/70
[2018-05-28 18:05] LABS: T4 FREE 0.98 ng/dL (0.76-1.46)
[2018-05-28 20:00] VITALS: BP 158/72
[2018-05-29] VITALS: BP 142/56
[2018-05-29 04:00] VITALS: BP 174/78
[2018-05-29] MEDS: INSULIN LISPRO 100 UNITS/ML SUBCUT SCH ×2 (06:17→12:30)
[2018-05-29] MEDS: BLOOD SUGAR DIAGNOSTIC STRIP TEST SCH ×2 (06:17→12:30)
[2018-05-29] MEDS: SEVELAMER CARBONATE 800 MG TABLET PO SCH ×2 (07:40→13:29)
[2018-05-29 08:00] VITALS: BP 171/93
[2018-05-29] MEDS: BENAZEPRIL 10MG TABLET PO SCH (08:48)
[2018-05-29] MEDS: HYDRALAZINE HCL 50MG TABLET PO SCH ×2 (08:48→09:00)
[2018-05-29] MEDS: ENOXAPARIN 30MG/0.3ML SYR SUBCUT SCH (08:48)
[2018-05-29] MEDS: AMLODIPINE 10MG TABLET PO SCH (08:48)
[2018-05-29] MEDS: FOLIC ACID/VITAMIN B COMP W-C TABLET PO SCH (08:51)
[2018-05-29] MEDS: DIPHENHYDRAMINE 25MG CAPSULE PO PRN (08:51)
[2018-05-29] MEDS ORDERED: ASPIRIN 81MG TABLET PO SCH (09:00)
[2018-05-29 09:39] LABS: CREATINE KINASE MB FRACTION 1.1 ng/mL (0.5-3.6)
[2018-05-29 12:00] VITALS: BP 120/79
[2018-05-29 13:34] VITALS: BP 120/79
== END 2018-05-29 15:24 | disposition home or self-care (01) | DRG 70 ==
LOC: ER 08:17 → 8WST 12:10 → ENRESERV 13:38
PROVIDERS: ADMIT Internal Medicine; ATTEND Internal Medicine
PROC: 5A1D70Z Performance of Urinary Filtration, Intermittent, Less than 6 Hours Per Day (ICD-10-PCS; 2018-05-27)
PROC: 5A1D70Z Performance of Urinary Filtration, Intermittent, Less than 6 Hours Per Day (ICD-10-PCS; principal; 2018-05-28)
DX: G93.41 Metabolic encephalopathy (principal); N18.6 End stage renal disease; I13.2 Hypertensive heart and chronic kidney disease with heart failure and with stage 5 chronic kidney disease, or end stage renal disease; E46 Unspecified protein-calorie malnutrition; G89.4 Chronic pain syndrome; M48.00 Spinal stenosis, site unspecified; Z99.2 Dependence on renal dialysis; E11.22 Type 2 diabetes mellitus with diabetic chronic kidney disease; E78.5 Hyperlipidemia, unspecified; H54.7 Unspecified visual loss; I25.10 Atherosclerotic heart disease of native coronary artery without angina pectoris; I50.9 Heart failure, unspecified; Z79.4 Long term (current) use of insulin; Z86.73 Personal history of transient ischemic attack (TIA), and cerebral infarction without residual deficits; Z91.15 Patient's noncompliance with renal dialysis; Z88.5 Allergy status to narcotic agent; Z79.84 Long term (current) use of oral hypoglycemic drugs; Z79.899 Other long term (current) drug therapy; Z68.31 Body mass index [BMI] 31.0-31.9, adult
CPT/HCPCS: 36415; 71045; 80061; 82550; 82553; 82962; 83036; 83605; 83880; 84439; 84443; 84484; 85379; 93005; 93306; 96374; 97166; 99285; J1650; J2405; J7030; Q0163

== ENCOUNTER 2018-06-12 06:39 | Inpatient (IN) | payer MEDICARE, MEDICAID ==
[~2018-06-12] VITALS: Ht 165.1 cm; Wt 82.6 kg
[~2018-06-12 06:39] MED LIST changes: +ASPI-1159 MT; +PRO1 MT
[2018-06-12 07:06] LABS: EOSINOPHILS % 2.4 % (0.0-5.0); LYMPHOCYTES % 17.8 % (20.0-50.0); MEAN CORPUSCULAR HEMOGLOBIN 27.3 pg (28.0-32.0); MEAN CORPUSCULAR VOLUME 81.7 fL (81.0-99.0); MEAN PLATELET VOLUME 8.8 fl (7.4-10.4); MONOCYTES % 7.6 % (2.0-8.0); NEUTROPHILS % 71.2 % (40.0-76.0); PLATELET 148 x1000/uL (130-400); RED BLOOD CELL COUNT 4.77 mill/uL (4.2-5.4); RED CELL DISTRIBUTION WIDTH 18.9 % (11.6-14.6)
[2018-06-12 07:12] LABS: CHLORIDE 98 mEq/L (98-107)
[2018-06-12] MEDS ORDERED: ONDANSETRON HCL 4MG/2ML INJ IV ONE (07:15)
[2018-06-12 07:16] LABS: ETHANOL BLOOD < 10 mg/dL
[2018-06-12 07:19] LABS: LDL CHOLESTEROL 44 mg/dL (5-100)
[2018-06-12 07:34] LABS: INR 0.9; PROTHROMBIN TIME 9.5 sec (9.1-11.1)
[2018-06-12] MEDS ORDERED: LORAZEPAM 2MG/ML CPJ IV ONE (10:30)
[2018-06-12] MEDS ORDERED: IPRATROPIUM/ALBUTEROL 0.5-3(2.5)MG/3ML NEB INH PRN (13:45)
[2018-06-12] MEDS ORDERED: GUAIFENESIN 200MG/10ML SUGAR FREE UDC PO PRN (13:45)
[2018-06-12] MEDS ORDERED: LABETALOL HCL 20MG/4ML CARPUJECT IV ONE (13:45)
[2018-06-12] MEDS ORDERED: ONDANSETRON HCL 4MG/2ML INJ IV PRN (13:45)
[2018-06-12] MEDS ORDERED: CLONIDINE 0.1MG TABLET PO PRN (13:45)
[2018-06-12] MEDS ORDERED: LABETALOL 5MG/ML SYR 20 MG/4 ML SYRINGE IV ONE (13:45)
[2018-06-12] MEDS ORDERED: LORAZEPAM 2MG/ML CPJ IV PRN (13:45)
[2018-06-12] MEDS ORDERED: MAGNESIUM/ALUMINUM HYDROXIDE/SIMETHICONE 30ML UDC PO PRN (13:45)
[2018-06-12] MEDS ORDERED: NA PHOS,M-B/NA PHOS,DI-BA ENEMA 118ML PR PRN (13:45)
[2018-06-12] MEDS ORDERED: ACETAMINOPHEN 325MG TABLET PO PRN (17:38)
[2018-06-12] MEDS: DIPHENHYDRAMINE 50MG/ML VIAL IV PRN ×2 (17:57→22:41)
[2018-06-12] MEDS: ENOXAPARIN 30MG/0.3ML SYR SUBCUT SCH ×2 (18:00→20:59)
[2018-06-12 18:01] VITALS: BP 146/54
[2018-06-12 20:00] VITALS: BP 181/81
[2018-06-12] MEDS: HYDROMORPHONE HCL/PF 2MG/ML CPJ IV PRN (21:01)
[2018-06-13] VITALS (9 sets, daily range): BP systolic 131–178; BP diastolic 55–92
[2018-06-13] MEDS ORDERED: AMLODIPINE 10MG TABLET PO SCH ×2 (09:00→10:00)
[2018-06-13] MEDS ORDERED: MEDICATION NOT ON FORMULARY EA (Valsartan (Diovan) 160 MG) PO SCH (09:45)
[2018-06-13] MEDS ORDERED: [UNRECOGNIZED DRUG - OTHER] SQ SCH (09:45)
[2018-06-13] MEDS ORDERED: CLONIDINE 0.1MG TABLET PO PRN (09:45)
[2018-06-13] MEDS ORDERED: LANTHANUM CARBONATE 1000 MG PO SCH (09:45)
[2018-06-13] MEDS ORDERED: DIPHENHYDRAMINE 50MG CAPSULE PO PRN (09:45)
[2018-06-13] MEDS ORDERED: MEDICATION NOT ON FORMULARY EA (Aspirin (Aspirin Low Dose) 1 TAB) MT SCH (09:45)
[2018-06-13] MEDS ORDERED: LACTULOSE 10 GM PO SCH (09:45)
[2018-06-13] MEDS ORDERED: ASPIRIN 81MG TABLET PO SCH (10:15)
[2018-06-13 10:53] LABS: BASOPHILS % 0.9 % (0.0-2.0); HEMATOCRIT. 35.9 % (36.0-48.0); HEMOGLOBIN. 11.9 g/dL (12.0-16.0); LYMPHOCYTES % 21.8 % (20.0-50.0); MEAN CORPUSCULAR VOLUME 81.7 fL (81.0-99.0); MEAN PLATELET VOLUME 9.1 fl (7.4-10.4); MONOCYTES % 7.8 % (2.0-8.0); NEUTROPHILS % 67.5 % (40.0-76.0); PLATELET 132 x1000/uL (130-400); RED CELL DISTRIBUTION WIDTH 18.7 % (11.6-14.6)
[2018-06-13] MEDS: CLONIDINE 0.2MG TABLET PO PRN (11:08)
[2018-06-13] MEDS: LOSARTAN POTASSIUM 100 MG TABLET PO SCH (11:08)
[2018-06-13] MEDS: ASPIRIN 81MG TABLET PO SCH (11:09)
[2018-06-13] MEDS: SEVELAMER CARBONATE 800 MG TABLET PO SCH ×2 (11:09→17:50)
[2018-06-13] MEDS: FOLIC ACID/VITAMIN B COMP W-C TABLET PO SCH (11:10)
[2018-06-13] MEDS: DOCUSATE SODIUM 100MG CAPSULE PO PRN (11:12)
[2018-06-13] MEDS: DULOXETINE HCL 60MG DR CAPSULE PO SCH (11:18)
[2018-06-13 11:39] LABS: CHLORIDE 99 mEq/L (98-107)
[2018-06-13 11:49] LABS: HDL CHOLESTEROL 68 mg/dL (40-59); T4 FREE 0.92 ng/dL (0.76-1.46)
[2018-06-13 12:01] LABS: LDL CHOLESTEROL 40 mg/dL (5-100)
[2018-06-13] MEDS ORDERED: SEVELAMER CARBONATE 2400 MG PO SCH (12:50)
[2018-06-13] MEDS ORDERED: MEDICATION NOT ON FORMULARY EA (Gabapentin 800 MG) PO SCH (13:00)
[2018-06-13] MEDS: INSULIN NPH (HUMULIN-N) 100 UNITS/ML 3ML VIAL SUBCUT SCH (13:33)
[2018-06-13] MEDS: NIFEDIPINE 10MG CAPSULE PO SCH ×2 (13:40→21:04)
[2018-06-13] MEDS: GABAPENTIN 400MG CAPSULE PO SCH ×2 (13:40→18:43)
[2018-06-13] MEDS: LANTHANUM CARBONATE 500MG CHEW TABLET PO SCH ×2 (15:25→19:33)
[2018-06-13] MEDS: BLOOD SUGAR DIAGNOSTIC STRIP TEST SCH (21:04)
[2018-06-13] MEDS: LATANOPROST 0.005% OPHTH DROPS 2.5ML BOTHEYE SCH (21:04)
[2018-06-13] MEDS: ATORVASTATIN CALCIUM 20MG TABLET PO SCH (21:04)
[2018-06-14] MEDS ORDERED: DEXTROSE 50% WATER 50ML SYRINGE IV PRN (01:30)
[2018-06-14] MEDS: DOCUSATE SODIUM 100MG CAPSULE PO PRN (02:06)
[2018-06-14] MEDS: HYDROMORPHONE HCL/PF 2MG/ML CPJ IV PRN ×4 (03:20→20:58)
[2018-06-14] MEDS: LACTULOSE 20G/30ML UDC PO PRN ×2 (03:24→14:50)
[2018-06-14 04:00] VITALS: BP 144/65
[2018-06-14] MEDS: BLOOD SUGAR DIAGNOSTIC STRIP TEST SCH ×4 (06:38→20:30)
[2018-06-14] MEDS: SEVELAMER CARBONATE 800 MG TABLET PO SCH ×3 (07:59→18:30)
[2018-06-14] MEDS: LANTHANUM CARBONATE 500MG CHEW TABLET PO SCH ×3 (07:59→18:30)
[2018-06-14 08:00] VITALS: BP 155/64
[2018-06-14] MEDS: DULOXETINE HCL 60MG DR CAPSULE PO SCH (08:00)
[2018-06-14] MEDS: FOLIC ACID/VITAMIN B COMP W-C TABLET PO SCH (08:00)
[2018-06-14] MEDS: GABAPENTIN 400MG CAPSULE PO SCH ×3 (08:00→18:30)
[2018-06-14] MEDS: LOSARTAN POTASSIUM 100 MG TABLET PO SCH (08:00)
[2018-06-14] MEDS: ASPIRIN 81MG TABLET PO SCH (08:00)
[2018-06-14] MEDS: NIFEDIPINE 10MG CAPSULE PO SCH ×2 (08:01→22:22)
[2018-06-14] MEDS: INSULIN LISPRO 100 UNITS/ML SUBCUT SCH ×4 (08:03→21:07)
[2018-06-14] MEDS: INSULIN NPH (HUMULIN-N) 100 UNITS/ML 3ML VIAL SUBCUT SCH (08:03)
[2018-06-14 12:00] VITALS: BP 150/56
[2018-06-14 16:00] VITALS: BP 159/61
[2018-06-14] MEDS: ENOXAPARIN 30MG/0.3ML SYR SUBCUT SCH (18:30)
[2018-06-14] MEDS: DIPHENHYDRAMINE 50MG/ML VIAL IV PRN (18:54)
[2018-06-14 20:23] VITALS: BP 188/73
[2018-06-14] MEDS: LATANOPROST 0.005% OPHTH DROPS 2.5ML BOTHEYE SCH (20:57)
[2018-06-14] MEDS: ATORVASTATIN CALCIUM 20MG TABLET PO SCH (20:57)
[2018-06-14] MEDS: CLONIDINE 0.2MG TABLET PO PRN (21:00)
[2018-06-15] VITALS (8 sets, daily range): BP systolic 122–185; BP diastolic 61–80
[2018-06-15] MEDS: BLOOD SUGAR DIAGNOSTIC STRIP TEST SCH ×3 (06:41→17:20)
[2018-06-15] MEDS: INSULIN LISPRO 100 UNITS/ML SUBCUT SCH ×3 (07:45→17:50)
[2018-06-15 08:43] LABS: BASOPHILS % 0.5 % (0.0-2.0); EOSINOPHILS % 3.2 % (0.0-5.0); HEMATOCRIT. 32.3 % (36.0-48.0); HEMOGLOBIN. 10.7 g/dL (12.0-16.0); LYMPHOCYTES % 25.4 % (20.0-50.0); MEAN CORPUSCULAR HEMOGLOBIN 26.9 pg (28.0-32.0); MEAN CORPUSCULAR VOLUME 81.1 fL (81.0-99.0); MEAN PLATELET VOLUME 9.6 fl (7.4-10.4); MONOCYTES % 10.6 % (2.0-8.0); NEUTROPHILS % 60.3 % (40.0-76.0); PLATELET 142 x1000/uL (130-400); RED BLOOD CELL COUNT 3.98 mill/uL (4.2-5.4); RED CELL DISTRIBUTION WIDTH 19.1 % (11.6-14.6)
[2018-06-15] MEDS: LOSARTAN POTASSIUM 100 MG TABLET PO SCH (09:00)
[2018-06-15] MEDS: NIFEDIPINE 10MG CAPSULE PO SCH (09:00)
[2018-06-15 09:06] LABS: PHOSPHORUS 5.2 mg/dL (2.5-4.9)
[2018-06-15] MEDS: DULOXETINE HCL 60MG DR CAPSULE PO SCH (09:14)
[2018-06-15] MEDS: LANTHANUM CARBONATE 500MG CHEW TABLET PO SCH ×3 (09:14→18:42)
[2018-06-15] MEDS: SEVELAMER CARBONATE 800 MG TABLET PO SCH ×3 (09:14→18:41)
[2018-06-15] MEDS: ASPIRIN 81MG TABLET PO SCH (09:14)
[2018-06-15] MEDS: FOLIC ACID/VITAMIN B COMP W-C TABLET PO SCH (09:14)
[2018-06-15] MEDS: GABAPENTIN 400MG CAPSULE PO SCH ×3 (09:14→18:42)
[2018-06-15] MEDS: INSULIN NPH (HUMULIN-N) 100 UNITS/ML 3ML VIAL SUBCUT SCH (09:19)
[2018-06-15] MEDS ORDERED: DEXTROSE 50% WATER 50ML SYRINGE IV NR (11:00)
[2018-06-15] MEDS ORDERED: INSULIN REGULAR (HUMULIN R) UD 100 UNITS/ML SYR IV NR (11:00)
[2018-06-15] MEDS ORDERED: CALCIUM GLUCONATE 1,000 MG in DEXT 5% WATER 90 ML IV NR (11:00)
[2018-06-15] MEDS ORDERED: SODIUM BICARBONATE 8.4% 1 MEQ/ML 50ML SYR IV NR (11:00)
[2018-06-15] MEDS: HYDROMORPHONE HCL/PF 2MG/ML CPJ IV PRN (15:17)
[2018-06-15] MEDS: ENOXAPARIN 30MG/0.3ML SYR SUBCUT SCH (18:44)
== END 2018-06-15 20:25 | disposition home or self-care (01) | DRG 70 ==
LOC: ER 06:39 → 6WST 08:41 → ENRESERV 15:58
PROVIDERS: ADMIT Internal Medicine; ATTEND Internal Medicine
PROC: 05H933Z Insertion of Infusion Device into Right Brachial Vein, Percutaneous Approach (ICD-10-PCS; principal; 2018-06-12)
PROC: B54MZZA Ultrasonography of Right Upper Extremity Veins, Guidance (ICD-10-PCS; 2018-06-12)
PROC: 5A1D70Z Performance of Urinary Filtration, Intermittent, Less than 6 Hours Per Day (ICD-10-PCS; 2018-06-15)
DX: G93.41 Metabolic encephalopathy (principal); N18.6 End stage renal disease; R65.10 Systemic inflammatory response syndrome (SIRS) of non-infectious origin without acute organ dysfunction; E46 Unspecified protein-calorie malnutrition; I13.2 Hypertensive heart and chronic kidney disease with heart failure and with stage 5 chronic kidney disease, or end stage renal disease; E87.5 Hyperkalemia; E86.0 Dehydration; E11.22 Type 2 diabetes mellitus with diabetic chronic kidney disease; D63.1 Anemia in chronic kidney disease; E78.5 Hyperlipidemia, unspecified; I50.9 Heart failure, unspecified; I25.10 Atherosclerotic heart disease of native coronary artery without angina pectoris; I69.320 Aphasia following cerebral infarction; I69.321 Dysphasia following cerebral infarction; Z79.4 Long term (current) use of insulin; Z99.2 Dependence on renal dialysis; Z88.2 Allergy status to sulfonamides; Z88.5 Allergy status to narcotic agent; Z79.899 Other long term (current) drug therapy; Z79.82 Long term (current) use of aspirin; Z68.30 Body mass index [BMI] 30.0-30.9, adult
CPT/HCPCS: 36415; 36569; 70551; 71045; 76937; 80048; 80061; 82962; 83721; 83735; 84100; 84439; 84443; 84484; 93005; 96372; 96374; 96375; 99291; C1725; G0482; J0610; J1170; J1200; J1650; J1815; J2060; J2405; J3490; J7060

== ENCOUNTER 2018-10-10 15:37 | Inpatient (IN) | payer MEDICARE, MEDICAID ==
[~2018-10-10] VITALS: Ht 162.6 cm; Wt 90.7 kg
[2018-10-10] MEDS ORDERED: HYDRALAZINE 20MG/ML VIAL IV ONE (15:45)
[2018-10-10] MEDS ORDERED: GLUCAGON,HUMAN RECOMBINANT 1MG/VIAL IM ONE (15:45)
[2018-10-10] MEDS ORDERED: DEXTROSE 50% WATER 50ML SYRINGE IV ONE ×2 (15:45→16:15)
[2018-10-10 16:13] LABS: BASOPHILS % 0.6 % (0.0-2.0); EOSINOPHILS % 2.6 % (0.0-5.0); HEMATOCRIT. 40.3 % (36.0-48.0); HEMOGLOBIN. 13.3 g/dL (12.0-16.0); LYMPHOCYTES % 20.1 % (20.0-50.0); MEAN CORPUSCULAR HEMOGLOBIN 26.8 pg (28.0-32.0); MEAN CORPUSCULAR VOLUME 81.4 fL (81.0-99.0); MEAN PLATELET VOLUME 10.1 fl (7.4-10.4); MONOCYTES % 11.3 % (2.0-8.0); NEUTROPHILS % 65.4 % (40.0-76.0); PLATELET 167 x1000/uL (130-400); RED BLOOD CELL COUNT 4.95 mill/uL (4.2-5.4)
[2018-10-10 16:16] LABS: CHLORIDE 98 mEq/L (98-107)
[2018-10-10 16:18] LABS: INR 0.9; PROTHROMBIN TIME 9.5 sec (9.1-11.1)
[2018-10-10] MEDS ORDERED: ASPIRIN 325MG EC TABLET PO ONE (17:45)
[2018-10-10] MEDS ORDERED: DIPHENHYDRAMINE 25MG CAPSULE PO ONE (21:45)
[2018-10-11] VITALS: BP 157/72
[2018-10-11] MEDS ORDERED: IPRATROPIUM/ALBUTEROL 0.5-3(2.5)MG/3ML NEB INH PRN
[2018-10-11] MEDS ORDERED: ACETAMINOPHEN 650MG SUPP PR PRN
[2018-10-11] MEDS ORDERED: ACETAMINOPHEN 325MG TABLET PO PRN
[2018-10-11] MEDS ORDERED: NA PHOS,M-B/NA PHOS,DI-BA ENEMA 118ML PR PRN
[2018-10-11] MEDS ORDERED: DEXTROSE 50% WATER 50ML SYRINGE IV PRN
[2018-10-11] MEDS ORDERED: ONDANSETRON HCL 4MG/2ML INJ IV PRN
[2018-10-11] MEDS ORDERED: ACETAMINOPHEN 650MG/20.3ML UDC GT PRN
[2018-10-11] MEDS ORDERED: DIPHENHYDRAMINE 50MG/ML VIAL IV PRN
[2018-10-11] MEDS ORDERED: MAGNESIUM/ALUMINUM HYDROXIDE/SIMETHICONE 30ML UDC PO PRN
[2018-10-11] MEDS ORDERED: DEXT 5%/0.45% NACL 1000ML 1,000 ML IV SCH (01:00)
[2018-10-11] MEDS: CLONIDINE 0.1MG TABLET PO PRN ×2 (05:27→10:59)
[2018-10-11] MEDS: SODIUM CHLORIDE 0.9% INJ 3ML FLUSH IVF SCH ×2 (05:47→13:00)
[2018-10-11] MEDS: BLOOD SUGAR DIAGNOSTIC STRIP TEST SCH ×2 (05:48→12:42)
[2018-10-11 06:00] VITALS: BP 140/56
[2018-10-11] MEDS: INSULIN LISPRO 100 UNITS/ML SUBCUT SCH ×2 (06:52→12:43)
[2018-10-11 08:00] VITALS: BP 137/47
[2018-10-11 09:17] LABS: BASOPHILS % 0.6 % (0.0-2.0); EOSINOPHILS % 1.8 % (0.0-5.0); HEMATOCRIT. 36.2 % (36.0-48.0); LYMPHOCYTES % 15.2 % (20.0-50.0); MEAN CORPUSCULAR HEMOGLOBIN 27.2 pg (28.0-32.0); MEAN CORPUSCULAR VOLUME 82.4 fL (81.0-99.0); MEAN PLATELET VOLUME 10.4 fl (7.4-10.4); MONOCYTES % 8.4 % (2.0-8.0); PLATELET 145 x1000/uL (130-400); RED CELL DISTRIBUTION WIDTH 19.9 % (11.6-14.6)
[2018-10-11 09:26] LABS: CHLORIDE 94 mEq/L (98-107)
[2018-10-11 09:36] LABS: HDL CHOLESTEROL 82 mg/dL (40-59); LDL CHOLESTEROL 31 mg/dL (5-100)
[2018-10-11 11:30] VITALS: BP 211/80
[2018-10-11 12:53] VITALS: BP 176/77
[2018-10-11] MEDS ORDERED: DULOXETINE HCL 60MG DR CAPSULE PO SCH (14:30)
[2018-10-11] MEDS ORDERED: AMLODIPINE 10MG TABLET PO SCH (14:30)
[2018-10-11 14:36] VITALS: BP_SYST 164; BP_SYST 176; BP_DIAS 66; BP_DIAS 77
[2018-10-11] MEDS ORDERED: NIFEDIPINE 10MG CAPSULE PO SCH (15:00)
[2018-10-11] MEDS ORDERED: LATANOPROST 0.005% OPHTH DROPS 2.5ML BOTHEYE SCH (21:00)
== END 2018-10-11 16:30 | disposition home or self-care (01) | DRG 637 ==
LOC: ER 15:37 → 5WST 18:41 → ENRESERV 22:27 → 8WST 10-11 10:49
PROVIDERS: ADMIT Family Medicine; ATTEND Family Medicine
DX: E11.649 Type 2 diabetes mellitus with hypoglycemia without coma (principal); G93.41 Metabolic encephalopathy; E44.1 Mild protein-calorie malnutrition; I12.0 Hypertensive chronic kidney disease with stage 5 chronic kidney disease or end stage renal disease; E11.22 Type 2 diabetes mellitus with diabetic chronic kidney disease; G40.909 Epilepsy, unspecified, not intractable, without status epilepticus; N18.6 End stage renal disease; Z86.73 Personal history of transient ischemic attack (TIA), and cerebral infarction without residual deficits; Z88.2 Allergy status to sulfonamides; Z99.2 Dependence on renal dialysis; Z88.5 Allergy status to narcotic agent; Z88.8 Allergy status to other drugs, medicaments and biological substances; Z79.899 Other long term (current) drug therapy; Z79.82 Long term (current) use of aspirin; Z68.34 Body mass index [BMI] 34.0-34.9, adult
CPT/HCPCS: 36415; 71045; 80061; 82140; 82962; 83880; 84484; 93005; 96374; 96375; 99285; C1893; J0360; J1815; Q0163

== ENCOUNTER 2019-06-14 04:30 | Inpatient (IN) | payer MEDICARE, MEDICAID ==
[~2019-06-14] VITALS: Ht 162.6 cm; Wt 82.2 kg
[2019-06-14] VITALS (12 sets, daily range): BP systolic 132–204; BP diastolic 54–149
[~2019-06-14 04:30] MED LIST changes: -ASPI-1159 MT; +ASPI-1393 MT; -DULO60CA63 PO; +DULO60CA64 PO
[2019-06-14] MEDS ORDERED: ONDANSETRON HCL 4MG/2ML INJ IV STA (05:06)
[2019-06-14] MEDS ORDERED: MORPHINE SULFATE 4 MG/ML CPJ (NOT FOR IM USE) IV STA (05:06)
[2019-06-14 05:44] LABS: BASOPHILS % 1.1 % (0.0-2.0); EOSINOPHILS % 2.4 % (0.0-5.0); HEMATOCRIT. 27.2 % (36.0-48.0); LYMPHOCYTES % 10.5 % (20.0-50.0); MEAN CORPUSCULAR VOLUME 78.5 fL (81.0-99.0); MEAN PLATELET VOLUME 8.8 fl (7.4-10.4); MONOCYTES % 6.5 % (2.0-8.0); NEUTROPHILS % 79.5 % (40.0-76.0); PLATELET 165 x1000/uL (130-400); RED BLOOD CELL COUNT 3.46 mill/uL (4.2-5.4)
[2019-06-14] MEDS ORDERED: CLONIDINE 0.2MG TABLET PO ONE (05:45)
[2019-06-14 05:49] LABS: CHLORIDE 97 mEq/L (98-107)
[2019-06-14 06:03] LABS: PROTHROMBIN TIME 10.4 sec (9.6-11.0)
[2019-06-14 06:21] LABS: BG BASE EXCESS 2.6 mmol/L (-2.0-2.0); BG CARBOXYHEMOGLOBIN 1.2 % (0.5-1.5); BG DEOXYHEMOGLOBIN 10.9 % (0.0-5.0); BG FRACTION INSPIRED OXYGEN 36; BG HCO3 ACT 28.5 mmol/L (22.0-26.0); BG METHEMOGLOBIN 0.3 % (0.0-1.5); BG OXYGEN SATURATION 88.9 % (92.0-98.5); BG OXYHEMOGLOBIN 87.6 % (94.0-97.0); BG PCO2 50.5 mmHg (35.0-45.0); BG PO2 65.7 mmHg (75.0-100.0); BG SAMPLE SITE RIGHT RADIAL; BG TOTAL HEMOGLOBIN 11.2 g/dL (12.0-18.0); BG VENT MODE NASAL CANNULA
[2019-06-14 07:22] LABS: PLATELET ESTIMATE NORMAL
[2019-06-14] MEDS ORDERED: CLONIDINE 0.1MG TABLET PO PRN (07:30)
[2019-06-14] MEDS ORDERED: TRAMADOL 50MG TABLET PO PRN (07:30)
[2019-06-14] MEDS ORDERED: ACETAMINOPHEN 325MG TABLET PO PRN (07:30)
[2019-06-14] MEDS ORDERED: ONDANSETRON HCL 4MG/2ML INJ IV PRN (07:30)
[2019-06-14] MEDS ORDERED: DEXTROSE 50% WATER 50ML SYRINGE IV PRN (09:30)
[2019-06-14] MEDS: NIFEDIPINE XL 60MG TAB PO SCH ×2 (09:36→21:50)
[2019-06-14] MEDS: LOSARTAN POTASSIUM 100 MG TABLET PO SCH (09:36)
[2019-06-14] MEDS ORDERED: LABETALOL 5MG/ML SYR 20 MG/4 ML SYRINGE IV NR (10:00)
[2019-06-14] MEDS: BLOOD SUGAR DIAGNOSTIC STRIP TEST SCH ×3 (11:47→22:34)
[2019-06-14] MEDS: INSULIN LISPRO 100 UNITS/ML SUBCUT SCH ×3 (12:20→22:34)
[2019-06-14] MEDS: HYDRALAZINE HCL 100MG TABLET PO SCH ×2 (14:32→22:00)
[2019-06-15] VITALS (10 sets, daily range): BP systolic 120–168; BP diastolic 55–99
[2019-06-15] MEDS: ENOXAPARIN 30MG/0.3ML SYR SUBCUT SCH ×2 (02:55→09:20)
[2019-06-15] MEDS: BLOOD SUGAR DIAGNOSTIC STRIP TEST SCH (05:59)
[2019-06-15] MEDS: HYDRALAZINE HCL 100MG TABLET PO SCH (07:06)
[2019-06-15] MEDS: INSULIN LISPRO 100 UNITS/ML SUBCUT SCH (07:55)
[2019-06-15 08:37] LABS: HEMATOCRIT. 24.3 % (36.0-48.0); HEMOGLOBIN. 8.1 g/dL (12.0-16.0); MEAN CORPUSCULAR HEMOGLOBIN 26.1 pg (28.0-32.0); MEAN CORPUSCULAR VOLUME 78.2 fL (81.0-99.0); RED BLOOD CELL COUNT 3.11 mill/uL (4.2-5.4); RED CELL DISTRIBUTION WIDTH 22.6 % (11.6-14.6)
[2019-06-15] MEDS: NIFEDIPINE XL 60MG TAB PO SCH (09:17)
[2019-06-15] MEDS: LOSARTAN POTASSIUM 100 MG TABLET PO SCH (09:17)
[2019-06-15 12:30] LABS: PLATELET ESTIMATE NORMAL
[2019-06-15 12:31] LABS: MEAN PLATELET VOLUME 9.2 fl (7.4-10.4); PLATELET 137 x1000/uL (130-400)
== END 2019-06-15 10:29 | disposition home or self-care (01) | DRG 682 ==
LOC: ER 04:30 → 3WST 05:35 → ENRESERV 07:11
PROVIDERS: ADMIT Internal Medicine; ATTEND Internal Medicine
PROC: 5A1D70Z Performance of Urinary Filtration, Intermittent, Less than 6 Hours Per Day (ICD-10-PCS; principal; 2019-06-14)
DX: I13.11 Hypertensive heart and chronic kidney disease without heart failure, with stage 5 chronic kidney disease, or end stage renal disease (principal); J96.00 Acute respiratory failure, unspecified whether with hypoxia or hypercapnia; N18.6 End stage renal disease; I16.1 Hypertensive emergency; E87.5 Hyperkalemia; E87.70 Fluid overload, unspecified; E11.22 Type 2 diabetes mellitus with diabetic chronic kidney disease; E66.9 Obesity, unspecified; G40.909 Epilepsy, unspecified, not intractable, without status epilepticus; C50.911 Malignant neoplasm of unspecified site of right female breast; E87.8 Other disorders of electrolyte and fluid balance, not elsewhere classified; F32.9 Major depressive disorder, single episode, unspecified; D63.8 Anemia in other chronic diseases classified elsewhere; E78.5 Hyperlipidemia, unspecified; Z99.2 Dependence on renal dialysis; Z86.73 Personal history of transient ischemic attack (TIA), and cerebral infarction without residual deficits; Z90.11 Acquired absence of right breast and nipple; Z68.31 Body mass index [BMI] 31.0-31.9, adult; Z88.5 Allergy status to narcotic agent; Z88.2 Allergy status to sulfonamides; Z79.82 Long term (current) use of aspirin; Z79.899 Other long term (current) drug therapy; Z71.3 Dietary counseling and surveillance; Z92.21 Personal history of antineoplastic chemotherapy
CPT/HCPCS: 36415; 36600; 71045; 80048; 82375; 82805; 82962; 83605; 83880; 84484; 93005; 99291; J1650; J2270; J2405; J3490

== ENCOUNTER 2019-08-11 07:21 | Inpatient (IN) | payer MEDICARE, MEDICAID ==
[~2019-08-11] VITALS: Ht 162.6 cm; Wt 79.9 kg
[~2019-08-11 07:21] MED LIST changes: -AMLO10TA80 PO; -ASPI-1393 MT; +ASPI-1497 MT
[2019-08-11 08:57] LABS: CHLORIDE 102 mEq/L (98-107); PROTHROMBIN TIME 10.4 sec (9.6-11.0)
[2019-08-11 09:02] LABS: ETHANOL BLOOD < 10 mg/dL
[2019-08-11 09:04] LABS: BASOPHILS % 1.4 % (0.0-2.0); EOSINOPHILS % 3.6 % (0.0-5.0); HEMOGLOBIN. 7.8 g/dL (12.0-16.0); LDL CHOLESTEROL 62 mg/dL (5-100); LYMPHOCYTES % 18.9 % (20.0-50.0); MEAN CORPUSCULAR HEMOGLOBIN 26.1 pg (28.0-32.0); MEAN CORPUSCULAR VOLUME 76.6 fL (81.0-99.0); MEAN PLATELET VOLUME 8.6 fl (7.4-10.4); MONOCYTES % 6.5 % (2.0-8.0); NEUTROPHILS % 69.6 % (40.0-76.0); PLATELET 247 x1000/uL (130-400); RED CELL DISTRIBUTION WIDTH 26.2 % (11.6-14.6)
[2019-08-11 09:39] LABS: PLATELET ESTIMATE NORMAL
[2019-08-11] MEDS ORDERED: LABETALOL 5MG/ML SYR 20 MG/4 ML SYRINGE IV SCH (11:00)
[2019-08-11] MEDS ORDERED: DEXTROSE 50% WATER 50ML SYRINGE IV PRN (11:00)
[2019-08-11] MEDS ORDERED: ONDANSETRON HCL 4MG/2ML INJ IV PRN (11:00)
[2019-08-11] MEDS ORDERED: ACETAMINOPHEN 325MG TABLET PO PRN (11:00)
[2019-08-11] MEDS ORDERED: LOSARTAN POTASSIUM 100 MG TABLET PO NR (11:30)
[2019-08-11] MEDS ORDERED: NIFEDIPINE XL 60MG TAB PO NR (11:30)
[2019-08-11 12:19] LABS: TOTAL IRON BINDING CAPACITY 167 ug/dL (250-450)
[2019-08-11] MEDS: BLOOD SUGAR DIAGNOSTIC STRIP TEST SCH ×3 (13:00→21:40)
[2019-08-11 15:55] VITALS: BP 202/76
[2019-08-11] MEDS: HYDRALAZINE 20MG/ML VIAL IV PRN (16:03)
[2019-08-11] MEDS: CLOPIDOGREL 75MG TABLET PO SCH (16:03)
[2019-08-11] MEDS: INSULIN LISPRO 100 UNITS/ML SUBCUT SCH ×2 (17:40→21:40)
[2019-08-11 17:45] VITALS: BP 202/76
[2019-08-11 20:00] VITALS: BP 153/76
[2019-08-11] MEDS ORDERED: MORPHINE SULFATE 2 MG/ML CPJ (NOT FOR IM USE) IV PRN (20:30)
[2019-08-11] MEDS: NIFEDIPINE XL 60MG TAB PO SCH (21:35)
[2019-08-11] MEDS: MORPHINE SULFATE 4 MG/ML CPJ (NOT FOR IM USE) IV PRN (22:49)
[2019-08-12 04:00] VITALS: BP 137/74
[2019-08-12] MEDS: INSULIN LISPRO 100 UNITS/ML SUBCUT SCH ×4 (06:11→21:06)
[2019-08-12] MEDS: BLOOD SUGAR DIAGNOSTIC STRIP TEST SCH ×4 (06:11→20:21)
[2019-08-12] MEDS: PANTOPRAZOLE 40MG DR TABLET PO SCH (06:13)
[2019-08-12 07:33] LABS: EOSINOPHILS % 2.8 % (0.0-5.0); HEMATOCRIT. 22.5 % (36.0-48.0); HEMOGLOBIN. 7.4 g/dL (12.0-16.0); LYMPHOCYTES % 24.7 % (20.0-50.0); MEAN CORPUSCULAR HEMOGLOBIN 25.6 pg (28.0-32.0); MEAN CORPUSCULAR VOLUME 77.7 fL (81.0-99.0); MEAN PLATELET VOLUME 8.6 fl (7.4-10.4); MONOCYTES % 9.4 % (2.0-8.0); NEUTROPHILS % 62.1 % (40.0-76.0); PLATELET 228 x1000/uL (130-400); RED BLOOD CELL COUNT 2.89 mill/uL (4.2-5.4); RED CELL DISTRIBUTION WIDTH 26.3 % (11.6-14.6)
[2019-08-12 07:52] VITALS: BP 161/51
[2019-08-12] MEDS: CLOPIDOGREL 75MG TABLET PO SCH (08:20)
[2019-08-12] MEDS: LOSARTAN POTASSIUM 100 MG TABLET PO SCH (08:20)
[2019-08-12] MEDS: NIFEDIPINE XL 60MG TAB PO SCH ×2 (08:20→21:06)
[2019-08-12] MEDS: MORPHINE SULFATE 4 MG/ML CPJ (NOT FOR IM USE) IV PRN (08:26)
[2019-08-12] MEDS ORDERED: DOCUSATE SODIUM 250MG CAPSULE PO SCH (09:00)
[2019-08-12 12:00] VITALS: BP 165/53
[2019-08-12] MEDS: HYDRALAZINE 20MG/ML VIAL IV PRN (12:58)
[2019-08-12 16:57] VITALS: BP 153/53
[2019-08-12] MEDS: DIPHENHYDRAMINE 25MG CAPSULE PO PRN (18:23)
[2019-08-12 20:00] VITALS: BP 159/60
[2019-08-12] MEDS ORDERED: LACTULOSE 20G/30ML UDC PO SCH (21:00)
[2019-08-13] VITALS: BP 147/50
[2019-08-13 04:00] VITALS: BP 144/57
[2019-08-13] MEDS: MORPHINE SULFATE 4 MG/ML CPJ (NOT FOR IM USE) IV PRN (04:48)
[2019-08-13] MEDS: BLOOD SUGAR DIAGNOSTIC STRIP TEST SCH ×2 (06:13→12:10)
[2019-08-13] MEDS: PANTOPRAZOLE 40MG DR TABLET PO SCH (06:18)
[2019-08-13] MEDS: INSULIN LISPRO 100 UNITS/ML SUBCUT SCH ×2 (06:18→12:40)
[2019-08-13 06:57] LABS: BASOPHILS % 1.2 % (0.0-2.0); EOSINOPHILS % 5.5 % (0.0-5.0); HEMOGLOBIN. 7.8 g/dL (12.0-16.0); MEAN CORPUSCULAR HEMOGLOBIN 26.2 pg (28.0-32.0); MEAN CORPUSCULAR VOLUME 77.1 fL (81.0-99.0); MEAN PLATELET VOLUME 8.8 fl (7.4-10.4); NEUTROPHILS % 61.3 % (40.0-76.0); PLATELET 251 x1000/uL (130-400); RED BLOOD CELL COUNT 2.98 mill/uL (4.2-5.4); RED CELL DISTRIBUTION WIDTH 26.5 % (11.6-14.6)
[2019-08-13 08:00] VITALS: BP 146/65
[2019-08-13] MEDS ORDERED: DOCUSATE SODIUM 250MG CAPSULE PO SCH (09:00)
[2019-08-13] MEDS: DIPHENHYDRAMINE 25MG CAPSULE PO PRN (09:22)
[2019-08-13] MEDS: LOSARTAN POTASSIUM 100 MG TABLET PO SCH (09:22)
[2019-08-13] MEDS: CLOPIDOGREL 75MG TABLET PO SCH (09:22)
[2019-08-13] MEDS: NIFEDIPINE XL 60MG TAB PO SCH (09:22)
[2019-08-13 12:00] VITALS: BP 156/55
[2019-08-13] MEDS ORDERED: DIPHENHYDRAMINE 50MG/ML VIAL IV NR (13:30)
[2019-08-13 14:45] VITALS: BP 156/55
[2019-08-13] MEDS ORDERED: EPOETIN ALFA 10000UNITS/ML VIAL SUBCUT SCH (21:00)
== END 2019-08-13 16:37 | disposition home or self-care (01) | DRG 70 ==
LOC: ER 07:21 → 8WST 10:32 → EDBEDREQTM 10:41 → EDBEDREQSVC 10:41 → EDBEDREQ 10:41 → ENRESERV 12:59 → 8WST 17:10
PROVIDERS: ADMIT Internal Medicine; ATTEND Internal Medicine
PROC: 5A1D70Z Performance of Urinary Filtration, Intermittent, Less than 6 Hours Per Day (ICD-10-PCS; principal; 2019-08-11)
PROC: 5A1D70Z Performance of Urinary Filtration, Intermittent, Less than 6 Hours Per Day (ICD-10-PCS; 2019-08-13)
DX: G93.41 Metabolic encephalopathy (principal); N18.6 End stage renal disease; I12.0 Hypertensive chronic kidney disease with stage 5 chronic kidney disease or end stage renal disease; D50.9 Iron deficiency anemia, unspecified; K59.00 Constipation, unspecified; H54.61 Unqualified visual loss, right eye, normal vision left eye; E66.01 Morbid (severe) obesity due to excess calories; D63.1 Anemia in chronic kidney disease; E11.22 Type 2 diabetes mellitus with diabetic chronic kidney disease; R47.02 Dysphasia; J44.9 Chronic obstructive pulmonary disease, unspecified; E87.6 Hypokalemia; H53.462 Homonymous bilateral field defects, left side; M48.02 Spinal stenosis, cervical region; I66.02 Occlusion and stenosis of left middle cerebral artery; Z89.421 Acquired absence of other right toe(s); Z79.899 Other long term (current) drug therapy; Z68.30 Body mass index [BMI] 30.0-30.9, adult; Z91.19 Patient's noncompliance with other medical treatment and regimen; I69.320 Aphasia following cerebral infarction; Z99.2 Dependence on renal dialysis; Z88.5 Allergy status to narcotic agent; Z88.2 Allergy status to sulfonamides; Z88.8 Allergy status to other drugs, medicaments and biological substances
CPT/HCPCS: 36415; 70544; 70551; 71045; 80048; 80053; 80320; 82728; 82962; 83540; 83550; 83721; 84484; 85025; 92610; 93005; 96374; 97162; 97166; 99285; J0360; J1200; J1815; J2270; J3490; Q0163; G0480

== ENCOUNTER 2019-08-27 16:31 | Emergency (ER) | payer MEDICARE, MEDICAID ==
[~2019-08-27] VITALS: Ht 165.1 cm; Wt 82.0 kg
[2019-08-27 18:55] VITALS: BP 163/51
[2019-08-27 18:57] LABS: BASOPHILS % 0.5 % (0.0-2.0); EOSINOPHILS % 0.6 % (0.0-5.0); HEMATOCRIT. 25.4 % (36.0-48.0); HEMOGLOBIN. 8.3 g/dL (12.0-16.0); LYMPHOCYTES % 9.3 % (20.0-50.0); MEAN CORPUSCULAR HEMOGLOBIN 26.1 pg (28.0-32.0); MEAN CORPUSCULAR VOLUME 79.5 fL (81.0-99.0); MONOCYTES % 4.8 % (2.0-8.0); NEUTROPHILS % 84.8 % (40.0-76.0); PLATELET 260 x1000/uL (130-400)
[2019-08-27 19:05] LABS: CHLORIDE 102 mEq/L (98-107)
[2019-08-27 19:53] LABS: PLATELET ESTIMATE NORMAL
[2019-10-13] MEDS ORDERED: HYDR-4134 PO (22:03)
[2019-10-13] MEDS ORDERED: NIFE-32 PO (22:03)
[2019-11-10] MEDS ORDERED: TAMO10TA MT (14:43)
== END 2019-08-27 20:45 | disposition home or self-care (01) ==
LOC: EDBD → ER 16:31
DX: I12.0 Hypertensive chronic kidney disease with stage 5 chronic kidney disease or end stage renal disease (principal); J44.9 Chronic obstructive pulmonary disease, unspecified; E11.22 Type 2 diabetes mellitus with diabetic chronic kidney disease; N18.6 End stage renal disease; Z99.2 Dependence on renal dialysis; Z86.73 Personal history of transient ischemic attack (TIA), and cerebral infarction without residual deficits; Z79.82 Long term (current) use of aspirin; Z79.899 Other long term (current) drug therapy; Z88.2 Allergy status to sulfonamides; Z88.5 Allergy status to narcotic agent
CPT/HCPCS: 36415; 80053; 82962; 85025; 99283

== ENCOUNTER 2019-08-30 07:23 | Inpatient (IN) | payer MEDICARE, MEDICAID ==
[~2019-08-30] VITALS: Ht 162.6 cm; Wt 71.2 kg
[2019-08-30] MEDS ORDERED: DEXTROSE 50% WATER 50ML SYRINGE IV ONE (07:45)
[2019-08-30 08:03] LABS: BG BASE EXCESS 4.9 mmol/L (-2.0-2.0); BG CARBOXYHEMOGLOBIN 0.4 % (0.5-1.5); BG DEOXYHEMOGLOBIN 11.9 % (0.0-5.0); BG FRACTION INSPIRED OXYGEN 21; BG HCO3 ACT 29.8 mmol/L (22.0-26.0); BG METHEMOGLOBIN 0.2 % (0.0-1.5); BG OXYHEMOGLOBIN 87.5 % (94.0-97.0); BG PCO2 46.2 mmHg (35.0-45.0); BG PH 7.427 (7.350-7.450); BG PO2 57.8 mmHg (75.0-100.0); BG SAMPLE SITE RIGHT RADIAL; BG TOTAL HEMOGLOBIN 7.8 g/dL (12.0-18.0); BG VENT MODE ROOM AIR
[2019-08-30 08:07] LABS: BASOPHILS % 0.8 % (0.0-2.0); HEMATOCRIT. 21.3 % (36.0-48.0); HEMOGLOBIN. 7.2 g/dL (12.0-16.0); LYMPHOCYTES % 10.3 % (20.0-50.0); MEAN CORPUSCULAR HEMOGLOBIN 26.9 pg (28.0-32.0); MEAN CORPUSCULAR VOLUME 79.6 fL (81.0-99.0); MEAN PLATELET VOLUME 9.1 fl (7.4-10.4); MONOCYTES % 8.6 % (2.0-8.0); NEUTROPHILS % 79.3 % (40.0-76.0); PLATELET 200 x1000/uL (130-400); RED BLOOD CELL COUNT 2.67 mill/uL (4.2-5.4); RED CELL DISTRIBUTION WIDTH 24.2 % (11.6-14.6)
[2019-08-30 08:16] LABS: CHLORIDE 98 mEq/L (98-107)
[2019-08-30 08:24] LABS: BETA HYDROXYBUTYRATE 0.1 mMol/L (0.0-0.3)
[2019-08-30 08:41] LABS: PLATELET ESTIMATE NORMAL
[2019-08-30] MEDS ORDERED: LEVOFLOXACIN 750MG PREMIX 150 ML IV ONE (10:30)
[2019-08-30] MEDS ORDERED: DIPHENHYDRAMINE 50MG/ML VIAL IV PRN (11:45)
[2019-08-30] MEDS ORDERED: ONDANSETRON HCL 4MG/2ML INJ IV PRN (11:45)
[2019-08-30] MEDS ORDERED: MAGNESIUM/ALUMINUM HYDROXIDE/SIMETHICONE 30ML UDC PO PRN (11:45)
[2019-08-30] MEDS ORDERED: GUAIFENESIN 200MG/10ML SUGAR FREE UDC PO PRN (11:45)
[2019-08-30] MEDS ORDERED: DOCUSATE SODIUM 100MG CAPSULE PO PRN (11:45)
[2019-08-30] MEDS ORDERED: CEFTRIAXONE 1 G PREMIX 50 ML IV SCH (15:00)
[2019-08-30] MEDS: AMLODIPINE 10MG TABLET PO SCH (15:30)
[2019-08-30] MEDS ORDERED: AZITHROMYCIN 500 MG in DEXT 5% WATER 250 ML IV SCH (16:00)
[2019-08-30] MEDS: ACETAMINOPHEN 325MG TABLET PO PRN ×2 (17:19→20:43)
[2019-08-30 22:00] VITALS: BP 153/55
[2019-08-30] MEDS ORDERED: DEXTROSE 50% WATER 50ML SYRINGE IV PRN (22:00)
[2019-08-30] MEDS: ATORVASTATIN CALCIUM 20MG TABLET PO SCH (22:10)
[2019-08-30] MEDS: INSULIN LISPRO 100 UNITS/ML SUBCUT SCH (22:15)
[2019-08-30] MEDS: BLOOD SUGAR DIAGNOSTIC STRIP TEST SCH (22:15)
[2019-08-31] VITALS (8 sets, daily range): BP systolic 131–192; BP diastolic 53–95
[2019-08-31] MEDS: ACETAMINOPHEN 325MG TABLET PO PRN ×4 (03:17→22:27)
[2019-08-31] MEDS: BLOOD SUGAR DIAGNOSTIC STRIP TEST SCH ×4 (06:30→20:50)
[2019-08-31] MEDS: INSULIN LISPRO 100 UNITS/ML SUBCUT SCH ×3 (06:30→21:00)
[2019-08-31] MEDS: AMLODIPINE 10MG TABLET PO SCH (08:55)
[2019-08-31] MEDS ORDERED: DULOXETINE HCL 60MG DR CAPSULE PO SCH (09:00)
[2019-08-31 09:48] LABS: MEAN CORPUSCULAR HEMOGLOBIN 26.5 pg (28.0-32.0); MEAN CORPUSCULAR VOLUME 79.7 fL (81.0-99.0); RED BLOOD CELL COUNT 2.44 mill/uL (4.2-5.4); RED CELL DISTRIBUTION WIDTH 24.6 % (11.6-14.6)
[2019-08-31 09:55] LABS: CHLORIDE 100 mEq/L (98-107)
[2019-08-31 10:02] LABS: HEMATOCRIT. 19.4 % (36.0-48.0); HEMOGLOBIN. 6.5 g/dL (12.0-16.0)
[2019-08-31 11:08] LABS: PLATELET ESTIMATE NORMAL
[2019-08-31 12:11] LABS: TOTAL IRON BINDING CAPACITY 249 ug/dL (250-450)
[2019-08-31] MEDS ORDERED: CEFEPIME 1,000 MG in DEXTROSE 5% WATER 50 ML IV SCH (14:15)
[2019-08-31] MEDS ORDERED: DIPHENHYDRAMINE 50MG/ML VIAL IV SCH (15:00)
[2019-08-31] MEDS: GABAPENTIN 300MG CAPSULE PO SCH ×2 (16:53→20:48)
[2019-08-31] MEDS: DULOXETINE HCL 60MG DR CAPSULE PO SCH (16:56)
[2019-08-31] MEDS: CEFEPIME 1,000 MG in DEXTROSE 5% WATER 50 ML IV SCH (16:57)
[2019-08-31] MEDS: METRONIDAZOLE 500 MG PREMIX 100 ML IV SCH ×2 (17:39→20:49)
[2019-08-31] MEDS: CLONIDINE 0.1MG TABLET PO PRN (18:57)
[2019-08-31] MEDS: ATORVASTATIN CALCIUM 20MG TABLET PO SCH (20:48)
[2019-08-31] MEDS: FAMOTIDINE 20MG TABLET PO SCH (20:48)
[2019-09-01] VITALS (13 sets, daily range): BP systolic 130–185; BP diastolic 52–97
[2019-09-01] MEDS: GABAPENTIN 300MG CAPSULE PO SCH ×3 (05:20→21:09)
[2019-09-01] MEDS: CLONIDINE 0.1MG TABLET PO PRN ×2 (05:20→21:08)
[2019-09-01] MEDS: METRONIDAZOLE 500 MG PREMIX 100 ML IV SCH ×3 (05:21→21:51)
[2019-09-01] MEDS: BLOOD SUGAR DIAGNOSTIC STRIP TEST SCH ×4 (05:26→21:09)
[2019-09-01] MEDS: INSULIN LISPRO 100 UNITS/ML SUBCUT SCH ×5 (05:26→21:00)
[2019-09-01] MEDS: AMLODIPINE 10MG TABLET PO SCH (09:00)
[2019-09-01] MEDS: DULOXETINE HCL 60MG DR CAPSULE PO SCH (09:15)
[2019-09-01] MEDS: ACETAMINOPHEN 325MG TABLET PO PRN ×2 (13:45→21:09)
[2019-09-01] MEDS: CEFEPIME 1,000 MG in DEXTROSE 5% WATER 50 ML IV SCH (16:00)
[2019-09-01 17:17] LABS: BASOPHILS % 0.4 % (0.0-2.0); EOSINOPHILS % 1.2 % (0.0-5.0); LYMPHOCYTES % 9.2 % (20.0-50.0); MEAN CORPUSCULAR HEMOGLOBIN 27.2 pg (28.0-32.0); MEAN CORPUSCULAR VOLUME 81.1 fL (81.0-99.0); MEAN PLATELET VOLUME 9.4 fl (7.4-10.4); MONOCYTES % 9.8 % (2.0-8.0); NEUTROPHILS % 79.4 % (40.0-76.0); PLATELET 172 x1000/uL (130-400); RED BLOOD CELL COUNT 2.58 mill/uL (4.2-5.4)
[2019-09-01 17:25] LABS: HEMATOCRIT. 20.9 % (36.0-48.0)
[2019-09-01] MEDS ORDERED: EPOETIN ALFA 10000UNITS/ML VIAL SUBCUT SCH (21:00)
[2019-09-01] MEDS: ATORVASTATIN CALCIUM 20MG TABLET PO SCH (21:09)
[2019-09-01] MEDS: FAMOTIDINE 20MG TABLET PO SCH (21:09)
[2019-09-02] VITALS (7 sets, daily range): BP systolic 136–186; BP diastolic 53–79
[2019-09-02] MEDS: CLONIDINE 0.1MG TABLET PO PRN ×2 (04:48→14:01)
[2019-09-02] MEDS: METRONIDAZOLE 500 MG PREMIX 100 ML IV SCH ×3 (05:47→21:50)
[2019-09-02] MEDS: GABAPENTIN 300MG CAPSULE PO SCH ×3 (05:53→21:50)
[2019-09-02] MEDS: BLOOD SUGAR DIAGNOSTIC STRIP TEST SCH ×4 (06:20→20:44)
[2019-09-02] MEDS: INSULIN LISPRO 100 UNITS/ML SUBCUT SCH ×4 (07:32→20:44)
[2019-09-02] MEDS: DULOXETINE HCL 60MG DR CAPSULE PO SCH (09:05)
[2019-09-02] MEDS: AMLODIPINE 10MG TABLET PO SCH (09:06)
[2019-09-02] MEDS: MEGESTROL ACETATE 400 MG/10 ML UDC PO SCH (10:38)
[2019-09-02 16:40] LABS: HEMATOCRIT. 26.1 % (36.0-48.0); HEMOGLOBIN. 9.3 g/dL (12.0-16.0); MEAN CORPUSCULAR HEMOGLOBIN 29.2 pg (28.0-32.0); RED BLOOD CELL COUNT 3.19 mill/uL (4.2-5.4); RED CELL DISTRIBUTION WIDTH 19.2 % (11.6-14.6)
[2019-09-02] MEDS: CEFEPIME 1,000 MG in DEXTROSE 5% WATER 50 ML IV SCH (17:07)
[2019-09-02] MEDS: FAMOTIDINE 20MG TABLET PO SCH (21:50)
[2019-09-02] MEDS: ATORVASTATIN CALCIUM 20MG TABLET PO SCH (21:50)
[2019-09-02] MEDS: ACETAMINOPHEN 325MG TABLET PO PRN (23:00)
[2019-09-03] VITALS: BP 153/67
[2019-09-03 04:00] VITALS: BP 158/71
[2019-09-03] MEDS: METRONIDAZOLE 500 MG PREMIX 100 ML IV SCH ×2 (05:56→13:01)
[2019-09-03] MEDS: GABAPENTIN 300MG CAPSULE PO SCH ×2 (05:56→13:01)
[2019-09-03] MEDS: BLOOD SUGAR DIAGNOSTIC STRIP TEST SCH ×3 (06:21→17:20)
[2019-09-03] MEDS: INSULIN LISPRO 100 UNITS/ML SUBCUT SCH ×3 (07:28→17:50)
[2019-09-03 08:00] VITALS: BP 155/56
[2019-09-03] MEDS: AMLODIPINE 10MG TABLET PO SCH (08:52)
[2019-09-03] MEDS: DULOXETINE HCL 60MG DR CAPSULE PO SCH (08:52)
[2019-09-03] MEDS: MEGESTROL ACETATE 400 MG/10 ML UDC PO SCH (08:52)
[2019-09-03 11:12] LABS: BASOPHILS % 0.7 % (0.0-2.0); EOSINOPHILS % 2.7 % (0.0-5.0); HEMATOCRIT. 27.1 % (36.0-48.0); HEMOGLOBIN. 9.3 g/dL (12.0-16.0); LYMPHOCYTES % 12.5 % (20.0-50.0); MEAN CORPUSCULAR HEMOGLOBIN 28.7 pg (28.0-32.0); MEAN CORPUSCULAR VOLUME 83.6 fL (81.0-99.0); MEAN PLATELET VOLUME 9.5 fl (7.4-10.4); MONOCYTES % 7.9 % (2.0-8.0); NEUTROPHILS % 76.2 % (40.0-76.0); PLATELET 223 x1000/uL (130-400); RED BLOOD CELL COUNT 3.25 mill/uL (4.2-5.4)
[2019-09-03 12:00] VITALS: BP 167/55
[2019-09-03] MEDS ORDERED: BISACODYL 5MG TABLET PO SCH (12:15)
[2019-09-03] MEDS: ACETAMINOPHEN 325MG TABLET PO PRN (15:54)
[2019-09-03 16:00] VITALS: BP 143/55
[2019-09-03 20:00] VITALS: BP 144/75
== END 2019-09-03 23:00 | DRG 871 ==
LOC: ER 07:23 → EDBD 07:23 → 6WST 09:35 → EDBEDREQ 09:46 → ENRESERV 20:12 → 6EST 09-03 16:10
PROVIDERS: ADMIT Hospitalist; ATTEND Hospitalist
PROC: 5A1D70Z Performance of Urinary Filtration, Intermittent, Less than 6 Hours Per Day (ICD-10-PCS; 2019-08-30)
PROC: 5A1D70Z Performance of Urinary Filtration, Intermittent, Less than 6 Hours Per Day (ICD-10-PCS; 2019-09-01)
PROC: 30233N1 Transfusion of Nonautologous Red Blood Cells into Peripheral Vein, Percutaneous Approach (ICD-10-PCS; 2019-09-01)
PROC: 5A1D70Z Performance of Urinary Filtration, Intermittent, Less than 6 Hours Per Day (ICD-10-PCS; principal; 2019-09-03)
DX: A41.9 Sepsis, unspecified organism (principal); J96.01 Acute respiratory failure with hypoxia; I50.33 Acute on chronic diastolic (congestive) heart failure; G93.41 Metabolic encephalopathy; J69.0 Pneumonitis due to inhalation of food and vomit; N18.6 End stage renal disease; I13.2 Hypertensive heart and chronic kidney disease with heart failure and with stage 5 chronic kidney disease, or end stage renal disease; D50.9 Iron deficiency anemia, unspecified; D63.1 Anemia in chronic kidney disease; E11.22 Type 2 diabetes mellitus with diabetic chronic kidney disease; E11.649 Type 2 diabetes mellitus with hypoglycemia without coma; E88.09 Other disorders of plasma-protein metabolism, not elsewhere classified; I69.320 Aphasia following cerebral infarction; Z79.4 Long term (current) use of insulin; Z99.2 Dependence on renal dialysis; Z88.6 Allergy status to analgesic agent; Z88.2 Allergy status to sulfonamides; Z79.82 Long term (current) use of aspirin; Z79.899 Other long term (current) drug therapy
CPT/HCPCS: 36415; 36600; 71045; 80048; 80053; 80076; 82010; 82140; 82375; 82728; 82805; 82962; 83036; 83540; 83550; 83605; 84484; 85025; 86850; 86900; 86920; 93005; 93970; 97162; 97530; 99285; J0456; J0692; J0696; J0885; J1200; J1815; J1956; J3490; J7060; P9016

== ENCOUNTER 2019-09-04 00:41 | Inpatient (IN) | payer MEDICARE, MEDICAID ==
[~2019-09-04] VITALS: Ht 152.4 cm; Wt 70.3 kg
[2019-09-04 09:17] LABS: BASOPHILS % 1.1 % (0.0-2.0); EOSINOPHILS % 2.2 % (0.0-5.0); HEMATOCRIT. 30.2 % (36.0-48.0); HEMOGLOBIN. 10.5 g/dL (12.0-16.0); LYMPHOCYTES % 16.1 % (20.0-50.0); MEAN CORPUSCULAR VOLUME 83.7 fL (81.0-99.0); MEAN PLATELET VOLUME 9.3 fl (7.4-10.4); MONOCYTES % 8.6 % (2.0-8.0); PLATELET 261 x1000/uL (130-400); RED BLOOD CELL COUNT 3.61 mill/uL (4.2-5.4)
[2019-09-04 09:19] LABS: CHLORIDE 101 mEq/L (98-107)
[2019-09-04 09:24] LABS: ETHANOL BLOOD < 10 mg/dL
[2019-09-04 09:26] LABS: PHOSPHORUS 2.9 mg/dL (2.5-4.9)
[2019-09-04] MEDS ORDERED: LORAZEPAM 0.5MG TABLET PO ONE (11:45)
[2019-09-05] MEDS: CLONIDINE 0.2MG TABLET PO PRN ×2 (09:06→15:02)
[2019-09-05] MEDS ORDERED: ACETAMINOPHEN 325MG TABLET PO PRN (13:30)
[2019-09-05] MEDS ORDERED: ONDANSETRON HCL 4MG/2ML INJ IV PRN (13:30)
[2019-09-05] MEDS ORDERED: MAGNESIUM/ALUMINUM HYDROXIDE/SIMETHICONE 30ML UDC PO PRN (13:30)
[2019-09-05 14:29] VITALS: BP 173/106
[2019-09-05] MEDS ORDERED: INFLUENZA VIRUS VACCINE(AFLURIA) 0.5ML SYR IM ONE (14:45)
[2019-09-05 15:00] VITALS: BP 173/106
[2019-09-05] MEDS ORDERED: DIPHENHYDRAMINE 50MG CAPSULE PO PRN (18:00)
[2019-09-05] MEDS: INSULIN LISPRO 100 UNITS/ML SUBCUT SCH ×2 (18:10→20:59)
[2019-09-05] MEDS ORDERED: DEXTROSE 50% WATER 50ML SYRINGE IV PRN ×2 (18:15)
[2019-09-05] MEDS: SEVELAMER CARBONATE 800 MG TABLET PO SCH (18:32)
[2019-09-05] MEDS: ENOXAPARIN 30MG/0.3ML SYR SUBCUT SCH (18:32)
[2019-09-05 20:00] VITALS: BP 132/66
[2019-09-05] MEDS: BLOOD SUGAR DIAGNOSTIC STRIP TEST SCH (20:59)
[2019-09-05] MEDS: LATANOPROST 0.005% OPHTH DROPS 2.5ML BOTHEYE SCH (23:35)
[2019-09-05] MEDS: GABAPENTIN 400MG CAPSULE PO SCH (23:36)
[2019-09-06] VITALS: BP 150/72
[2019-09-06 04:00] VITALS: BP 108/78
[2019-09-06] MEDS: GABAPENTIN 400MG CAPSULE PO SCH ×3 (05:26→22:05)
[2019-09-06 06:34] LABS: PHOSPHORUS 3.2 mg/dL (2.5-4.9)
[2019-09-06] MEDS: BLOOD SUGAR DIAGNOSTIC STRIP TEST SCH ×4 (07:40→20:57)
[2019-09-06 08:00] VITALS: BP 126/66
[2019-09-06] MEDS: FOLIC ACID/VITAMIN B COMP W-C TABLET PO SCH (08:51)
[2019-09-06] MEDS: ASPIRIN 81MG EC TABLET PO SCH (08:51)
[2019-09-06] MEDS: DULOXETINE HCL 60MG DR CAPSULE PO SCH (08:51)
[2019-09-06] MEDS: ENOXAPARIN 30MG/0.3ML SYR SUBCUT SCH (08:51)
[2019-09-06] MEDS: SEVELAMER CARBONATE 800 MG TABLET PO SCH ×3 (08:51→17:24)
[2019-09-06] MEDS: ATORVASTATIN CALCIUM 20MG TABLET PO SCH (08:51)
[2019-09-06] MEDS: INSULIN LISPRO 100 UNITS/ML SUBCUT SCH ×4 (08:53→20:58)
[2019-09-06] MEDS ORDERED: NIFEDIPINE 10MG CAPSULE PO SCH (09:00)
[2019-09-06 12:00] VITALS: BP 180/82
[2019-09-06 16:00] VITALS: BP 170/77
[2019-09-06 17:10] LABS: BASOPHILS % 2.1 % (0.0-2.0); EOSINOPHILS % 2.8 % (0.0-5.0); HEMATOCRIT. 27.3 % (36.0-48.0); HEMOGLOBIN. 9.6 g/dL (12.0-16.0); LYMPHOCYTES % 17.3 % (20.0-50.0); MEAN CORPUSCULAR HEMOGLOBIN 29.4 pg (28.0-32.0); MEAN CORPUSCULAR VOLUME 83.6 fL (81.0-99.0); MEAN PLATELET VOLUME 8.4 fl (7.4-10.4); MONOCYTES % 9.1 % (2.0-8.0); NEUTROPHILS % 68.7 % (40.0-76.0); PLATELET 296 x1000/uL (130-400); RED BLOOD CELL COUNT 3.26 mill/uL (4.2-5.4); RED CELL DISTRIBUTION WIDTH 18.2 % (11.6-14.6)
[2019-09-06] MEDS: CLONIDINE 0.2MG TABLET PO PRN (17:24)
[2019-09-06 20:00] VITALS: BP 136/67
[2019-09-06] MEDS: LATANOPROST 0.005% OPHTH DROPS 2.5ML BOTHEYE SCH (20:38)
[2019-09-07] VITALS: BP 143/72
[2019-09-07 04:00] VITALS: BP 192/84
[2019-09-07] MEDS: CLONIDINE 0.2MG TABLET PO PRN (04:43)
[2019-09-07] MEDS: GABAPENTIN 400MG CAPSULE PO SCH ×3 (05:30→20:31)
[2019-09-07] MEDS: BLOOD SUGAR DIAGNOSTIC STRIP TEST SCH ×4 (07:40→20:31)
[2019-09-07 08:00] VITALS: BP 150/73
[2019-09-07] MEDS: INSULIN LISPRO 100 UNITS/ML SUBCUT SCH ×4 (08:10→20:48)
[2019-09-07] MEDS: DULOXETINE HCL 60MG DR CAPSULE PO SCH (09:07)
[2019-09-07] MEDS: SEVELAMER CARBONATE 800 MG TABLET PO SCH ×3 (09:07→17:57)
[2019-09-07] MEDS: ATORVASTATIN CALCIUM 20MG TABLET PO SCH (09:07)
[2019-09-07] MEDS: FOLIC ACID/VITAMIN B COMP W-C TABLET PO SCH (09:07)
[2019-09-07] MEDS: ASPIRIN 81MG EC TABLET PO SCH (09:07)
[2019-09-07] MEDS: ENOXAPARIN 30MG/0.3ML SYR SUBCUT SCH (09:08)
[2019-09-07 12:00] VITALS: BP 147/77
[2019-09-07 16:00] VITALS: BP 167/81
[2019-09-07] MEDS: NIFEDIPINE XL 60MG TAB PO SCH (16:34)
[2019-09-07 17:01] LABS: BASOPHILS % 1.2 % (0.0-2.0); HEMATOCRIT. 25.1 % (36.0-48.0); HEMOGLOBIN. 8.7 g/dL (12.0-16.0); LYMPHOCYTES % 26.2 % (20.0-50.0); MEAN CORPUSCULAR HEMOGLOBIN 29.2 pg (28.0-32.0); MEAN CORPUSCULAR VOLUME 84.8 fL (81.0-99.0); MEAN PLATELET VOLUME 8.4 fl (7.4-10.4); MONOCYTES % 7.2 % (2.0-8.0); NEUTROPHILS % 63.4 % (40.0-76.0); PLATELET 328 x1000/uL (130-400); RED BLOOD CELL COUNT 2.96 mill/uL (4.2-5.4); RED CELL DISTRIBUTION WIDTH 17.7 % (11.6-14.6)
[2019-09-07 20:00] VITALS: BP 154/64
[2019-09-07] MEDS: LATANOPROST 0.005% OPHTH DROPS 2.5ML BOTHEYE SCH (20:31)
[2019-09-08] VITALS (7 sets, daily range): BP systolic 137–167; BP diastolic 54–64
[2019-09-08] MEDS: GABAPENTIN 400MG CAPSULE PO SCH ×2 (05:34→14:25)
[2019-09-08] MEDS: BLOOD SUGAR DIAGNOSTIC STRIP TEST SCH ×2 (05:36→12:16)
[2019-09-08] MEDS: ENOXAPARIN 30MG/0.3ML SYR SUBCUT SCH (08:37)
[2019-09-08] MEDS: NIFEDIPINE XL 60MG TAB PO SCH (08:38)
[2019-09-08] MEDS: ASPIRIN 81MG EC TABLET PO SCH (08:38)
[2019-09-08] MEDS: SEVELAMER CARBONATE 800 MG TABLET PO SCH ×2 (08:38→12:39)
[2019-09-08] MEDS: FOLIC ACID/VITAMIN B COMP W-C TABLET PO SCH (08:38)
[2019-09-08] MEDS: ATORVASTATIN CALCIUM 20MG TABLET PO SCH (08:38)
[2019-09-08] MEDS: DULOXETINE HCL 60MG DR CAPSULE PO SCH (08:38)
[2019-09-08] MEDS: INSULIN LISPRO 100 UNITS/ML SUBCUT SCH ×2 (08:43→12:43)
[2019-09-08] MEDS: CLONIDINE 0.2MG TABLET PO PRN (12:39)
== END 2019-09-08 16:47 | DRG 640 ==
LOC: ER 00:41 → EDBEDREQ 09-05 07:02 → EDBEDREQTM 09-05 07:02 → ENRESERV 09-05 11:59 → 7WST 09-05 13:18
PROVIDERS: ADMIT Internal Medicine; ATTEND Internal Medicine
PROC: 5A1D70Z Performance of Urinary Filtration, Intermittent, Less than 6 Hours Per Day (ICD-10-PCS; principal; 2019-09-05)
PROC: 5A1D70Z Performance of Urinary Filtration, Intermittent, Less than 6 Hours Per Day (ICD-10-PCS; 2019-09-07)
DX: E87.70 Fluid overload, unspecified (principal); N18.6 End stage renal disease; E44.1 Mild protein-calorie malnutrition; I13.11 Hypertensive heart and chronic kidney disease without heart failure, with stage 5 chronic kidney disease, or end stage renal disease; I12.0 Hypertensive chronic kidney disease with stage 5 chronic kidney disease or end stage renal disease; E11.65 Type 2 diabetes mellitus with hyperglycemia; N18.9 Chronic kidney disease, unspecified; E11.22 Type 2 diabetes mellitus with diabetic chronic kidney disease; D64.9 Anemia, unspecified; E78.5 Hyperlipidemia, unspecified; I16.0 Hypertensive urgency; Z99.2 Dependence on renal dialysis; Z85.3 Personal history of malignant neoplasm of breast; Z90.10 Acquired absence of unspecified breast and nipple; I69.320 Aphasia following cerebral infarction; Z91.15 Patient's noncompliance with renal dialysis; Z87.01 Personal history of pneumonia (recurrent); Z59.0 Homelessness; Z90.2 Acquired absence of lung [part of]; Z88.6 Allergy status to analgesic agent; Z88.2 Allergy status to sulfonamides; Z88.8 Allergy status to other drugs, medicaments and biological substances; Z79.899 Other long term (current) drug therapy; Z79.82 Long term (current) use of aspirin; Z68.30 Body mass index [BMI] 30.0-30.9, adult
CPT/HCPCS: 36415; 71045; 80048; 80053; 80076; 80307; 80320; 80329; 82962; 83036; 83735; 84100; 84484; 85025; 87493; 93005; 96372; 97162; 99285; J1650; J1815; G0480

== ENCOUNTER 2019-10-27 16:32 | Inpatient (IN) | payer MEDICARE, MEDICAID ==
[~2019-10-27] VITALS: Ht 162.6 cm; Wt 78.2 kg
[~2019-10-27 16:32] MED LIST changes: -ESTR1TAB98 PO; +HYDR-4134 PO; -LACT10SO6 PO; +NIFE-32 PO; -NPH,100V SQ; -PRO1 MT; -VALS160T2 PO
[2019-10-27] MEDS ORDERED: DEXTROSE 50% WATER 50ML SYRINGE IV ONE ×3 (18:28→18:45)
[2019-10-27] MEDS ORDERED: DEXT 5%/0.9% NACL 500 ML IV ONE (18:45)
[2019-10-27 19:25] LABS: BASOPHILS % 0.8 % (0.0-2.0); EOSINOPHILS % 1.9 % (0.0-5.0); HEMATOCRIT. 23.6 % (36.0-48.0); LYMPHOCYTES % 15.7 % (20.0-50.0); MEAN CORPUSCULAR HEMOGLOBIN 29.1 pg (28.0-32.0); MEAN CORPUSCULAR VOLUME 85.9 fL (81.0-99.0); MEAN PLATELET VOLUME 10.3 fl (7.4-10.4); MONOCYTES % 5.7 % (2.0-8.0); NEUTROPHILS % 75.9 % (40.0-76.0); PLATELET 181 x1000/uL (130-400); RED BLOOD CELL COUNT 2.75 mill/uL (4.2-5.4); RED CELL DISTRIBUTION WIDTH 16.1 % (11.6-14.6)
[2019-10-27 19:31] LABS: CHLORIDE 100 mEq/L (98-107)
[2019-10-27] MEDS ORDERED: NITROGLYCERIN 0.4MG TABLET SL SL PRN (20:15)
[2019-10-27] MEDS ORDERED: ZOLPIDEM TARTRATE 5MG TABLET PO PRN (20:15)
[2019-10-27] MEDS ORDERED: GUAIFENESIN 200MG/10ML SUGAR FREE UDC PO PRN (20:30)
[2019-10-27] MEDS ORDERED: MAGNESIUM/ALUMINUM HYDROXIDE/SIMETHICONE 30ML UDC PO PRN (20:30)
[2019-10-27] MEDS ORDERED: DOCUSATE SODIUM 100MG CAPSULE PO PRN (20:30)
[2019-10-27] MEDS ORDERED: ACETAMINOPHEN 325MG TABLET PO PRN (20:30)
[2019-10-27] MEDS ORDERED: DEXTROSE 50% WATER 50ML SYRINGE IV PRN (20:30)
[2019-10-27] MEDS ORDERED: IPRATROPIUM/ALBUTEROL 0.5-3(2.5)MG/3ML NEB NEB PRN (20:30)
[2019-10-27] MEDS ORDERED: ONDANSETRON HCL 4MG/2ML INJ IV PRN (20:30)
[2019-10-27] MEDS ORDERED: ENOXAPARIN 40MG/0.4ML SYR SUBCUT SCH (20:30)
[2019-10-27] MEDS ORDERED: FAMOTIDINE 20MG TABLET PO SCH (21:00)
[2019-10-27] MEDS ORDERED: GLUCAGON,HUMAN RECOMBINANT 1MG/VIAL IM SCH (23:03)
[2019-10-28] VITALS (12 sets, daily range): BP systolic 152–201; BP diastolic 72–133
[2019-10-28] MEDS: ATORVASTATIN CALCIUM 10MG TABLET PO SCH ×2 (00:13→21:40)
[2019-10-28] MEDS: CLONIDINE 0.1MG TABLET PO PRN ×2 (00:13→11:35)
[2019-10-28] MEDS: BLOOD SUGAR DIAGNOSTIC STRIP TEST SCH ×5 (00:14→21:40)
[2019-10-28] MEDS: TRAMADOL 50MG TABLET PO PRN ×2 (00:29→17:40)
[2019-10-28] MEDS: HYDRALAZINE HCL 50MG TABLET PO SCH ×3 (05:06→21:41)
[2019-10-28] MEDS: INSULIN LISPRO 100 UNITS/ML SUBCUT SCH ×5 (08:00→21:00)
[2019-10-28] MEDS: SEVELAMER CARBONATE 800 MG TABLET PO SCH ×3 (08:54→17:39)
[2019-10-28] MEDS: ZINC SULFATE 220 MG ( 50 ) CAPSULE PO SCH (08:54)
[2019-10-28] MEDS: FOLIC ACID/VITAMIN B COMP W-C TABLET PO SCH (08:54)
[2019-10-28] MEDS: ASPIRIN 325MG EC TABLET PO SCH (08:55)
[2019-10-28] MEDS: ASCORBIC ACID 500 MG TABLET PO SCH ×2 (08:55→21:40)
[2019-10-28] MEDS: FAMOTIDINE 20MG TABLET PO SCH (08:55)
[2019-10-28] MEDS: ENOXAPARIN 30MG/0.3ML SYR SUBCUT SCH (08:56)
[2019-10-28] MEDS: DIPHENHYDRAMINE 50MG/ML VIAL IV PRN ×2 (10:05→17:55)
[2019-10-28] MEDS ORDERED: NIFEDIPINE XL 60MG TAB PO NR (17:28)
[2019-10-29] VITALS (13 sets, daily range): BP systolic 116–178; BP diastolic 54–91
[2019-10-29] MEDS: DIPHENHYDRAMINE 50MG/ML VIAL IV PRN (04:11)
[2019-10-29] MEDS: TRAMADOL 50MG TABLET PO PRN (04:13)
[2019-10-29] MEDS: CLONIDINE 0.2MG TABLET PO PRN ×2 (04:13→12:29)
[2019-10-29 07:02] LABS: BASOPHILS % 1.2 % (0.0-2.0); EOSINOPHILS % 4.4 % (0.0-5.0); HEMATOCRIT. 24.9 % (36.0-48.0); HEMOGLOBIN. 8.3 g/dL (12.0-16.0); LYMPHOCYTES % 20.8 % (20.0-50.0); MEAN CORPUSCULAR HEMOGLOBIN 28.8 pg (28.0-32.0); MEAN CORPUSCULAR VOLUME 86.2 fL (81.0-99.0); MEAN PLATELET VOLUME 10.6 fl (7.4-10.4); MONOCYTES % 8.5 % (2.0-8.0); NEUTROPHILS % 65.1 % (40.0-76.0); PLATELET 181 x1000/uL (130-400); RED BLOOD CELL COUNT 2.88 mill/uL (4.2-5.4); RED CELL DISTRIBUTION WIDTH 15.9 % (11.6-14.6)
[2019-10-29] MEDS: INSULIN LISPRO 100 UNITS/ML SUBCUT SCH ×3 (08:00→17:36)
[2019-10-29] MEDS: BLOOD SUGAR DIAGNOSTIC STRIP TEST SCH ×3 (08:03→17:23)
[2019-10-29] MEDS: FAMOTIDINE 20MG TABLET PO SCH (08:16)
[2019-10-29] MEDS: ASPIRIN 325MG EC TABLET PO SCH (08:16)
[2019-10-29] MEDS: SEVELAMER CARBONATE 800 MG TABLET PO SCH ×3 (08:16→17:36)
[2019-10-29] MEDS: ZINC SULFATE 220 MG ( 50 ) CAPSULE PO SCH (08:16)
[2019-10-29] MEDS: ASCORBIC ACID 500 MG TABLET PO SCH (08:16)
[2019-10-29] MEDS: FOLIC ACID/VITAMIN B COMP W-C TABLET PO SCH (08:16)
[2019-10-29] MEDS: ENOXAPARIN 30MG/0.3ML SYR SUBCUT SCH (08:17)
[2019-10-29] MEDS ORDERED: NIFEDIPINE XL 60MG TAB PO SCH (09:00)
[2019-10-29] MEDS: HYDRALAZINE HCL 50MG TABLET PO SCH ×2 (14:54→16:34)
[2019-11-10] MEDS ORDERED: TAMO10TA MT (14:43)
== END 2019-10-29 22:21 | disposition home or self-care (01) | DRG 70 ==
LOC: ER 16:32 → 5EST 20:08 → EDBEDREQTM 20:10 → EDBEDREQSVC 20:10 → EDBEDREQ 20:10 → SUPCPDRO 20:12 → ENRESERV 21:58
PROVIDERS: ADMIT Internal Medicine; ATTEND Internal Medicine
PROC: 5A1D70Z Performance of Urinary Filtration, Intermittent, Less than 6 Hours Per Day (ICD-10-PCS; principal; 2019-10-28)
DX: G93.41 Metabolic encephalopathy (principal); N18.6 End stage renal disease; E44.1 Mild protein-calorie malnutrition; I12.0 Hypertensive chronic kidney disease with stage 5 chronic kidney disease or end stage renal disease; E11.649 Type 2 diabetes mellitus with hypoglycemia without coma; D63.8 Anemia in other chronic diseases classified elsewhere; E11.22 Type 2 diabetes mellitus with diabetic chronic kidney disease; E78.5 Hyperlipidemia, unspecified; H54.8 Legal blindness, as defined in USA; T38.3X5A Adverse effect of insulin and oral hypoglycemic [antidiabetic] drugs, initial encounter; Z85.3 Personal history of malignant neoplasm of breast; Z90.12 Acquired absence of left breast and nipple; Z99.2 Dependence on renal dialysis; I69.320 Aphasia following cerebral infarction; Y92.89 Other specified places as the place of occurrence of the external cause; Z88.2 Allergy status to sulfonamides; Z88.5 Allergy status to narcotic agent; Z88.8 Allergy status to other drugs, medicaments and biological substances; Z79.899 Other long term (current) drug therapy; Z79.82 Long term (current) use of aspirin; Z86.711 Personal history of pulmonary embolism
CPT/HCPCS: 36415; 71045; 80048; 80053; 80061; 82962; 83036; 83880; 84484; 85025; 93005; 93970; 99291; J1200; J1610; J1650; J1815; J7042

== ENCOUNTER 2019-11-01 12:49 | Inpatient (IN) | payer MEDICARE, MEDICAID ==
[~2019-11-01] VITALS: Ht 165.1 cm; Wt 75.3 kg
[2019-11-01] MEDS ORDERED: DEXTROSE 10% WATER 500 ML IV ONE (13:15)
[2019-11-01 14:32] LABS: HEMATOCRIT. 30.3 % (36.0-48.0); MEAN CORPUSCULAR VOLUME 85.2 fL (81.0-99.0); MEAN PLATELET VOLUME 9.8 fl (7.4-10.4); PLATELET 233 x1000/uL (130-400); RED BLOOD CELL COUNT 3.56 mill/uL (4.2-5.4); RED CELL DISTRIBUTION WIDTH 16.3 % (11.6-14.6)
[2019-11-01 14:35] LABS: CHLORIDE 98 mEq/L (98-107)
[2019-11-01] MEDS ORDERED: HYDRALAZINE 20MG/ML VIAL IV ONE (15:45)
[2019-11-01 16:20] LABS: PLATELET ESTIMATE NORMAL
[2019-11-01] MEDS ORDERED: IPRATROPIUM/ALBUTEROL 0.5-3(2.5)MG/3ML NEB ORI PRN (16:45)
[2019-11-01] MEDS ORDERED: ONDANSETRON HCL 4MG/2ML INJ IV PRN (16:45)
[2019-11-01] MEDS ORDERED: GUAIFENESIN 200MG/10ML SUGAR FREE UDC PO PRN (16:45)
[2019-11-01] MEDS ORDERED: DOCUSATE SODIUM 100MG CAPSULE PO PRN (16:45)
[2019-11-01] MEDS ORDERED: ZOLPIDEM TARTRATE 5MG TABLET PO PRN ×2 (16:45)
[2019-11-01] MEDS ORDERED: ACETAMINOPHEN 325MG TABLET PO PRN ×2 (16:45)
[2019-11-01] MEDS ORDERED: MAGNESIUM/ALUMINUM HYDROXIDE/SIMETHICONE 30ML UDC PO PRN (16:45)
[2019-11-01] MEDS ORDERED: ENOXAPARIN 40MG/0.4ML SYR SUBCUT SCH (16:45)
[2019-11-01] MEDS ORDERED: NITROGLYCERIN 0.4MG TABLET SL SL PRN (16:45)
[2019-11-01] MEDS ORDERED: DEXTROSE 50% WATER 50ML SYRINGE IV PRN (17:00)
[2019-11-01] MEDS ORDERED: GLUCAGON,HUMAN RECOMBINANT 1MG/VIAL IM NR (17:14)
[2019-11-01] MEDS: SEVELAMER CARBONATE 800 MG TABLET PO SCH (17:26)
[2019-11-01] MEDS: NIFEDIPINE XL 60MG TAB PO SCH (17:26)
[2019-11-01] MEDS: BLOOD SUGAR DIAGNOSTIC STRIP TEST SCH ×2 (17:29→21:00)
[2019-11-01] MEDS: INSULIN LISPRO 100 UNITS/ML SUBCUT SCH (18:24)
[2019-11-01 23:41] LABS: CREATINE KINASE 56 IU/L (26-192)
[2019-11-01 23:42] LABS: CREATINE KINASE MB FRACTION 1.6 ng/mL (0.5-3.6)
[2019-11-02 04:00] VITALS: BP 151/56
[2019-11-02 05:00] VITALS: BP 151/56
[2019-11-02] MEDS: HYDRALAZINE HCL 50MG TABLET PO SCH ×3 (05:26→22:09)
[2019-11-02] MEDS: BLOOD SUGAR DIAGNOSTIC STRIP TEST SCH ×4 (06:08→21:00)
[2019-11-02] MEDS: INSULIN LISPRO 100 UNITS/ML SUBCUT SCH ×4 (06:44→22:06)
[2019-11-02 08:00] VITALS: BP 149/51
[2019-11-02] MEDS: NIFEDIPINE XL 60MG TAB PO SCH (09:00)
[2019-11-02] MEDS: LISINOPRIL 20MG TABLET PO SCH ×2 (09:00→21:58)
[2019-11-02] MEDS ORDERED: FAMOTIDINE 20MG TABLET PO SCH (09:00)
[2019-11-02] MEDS: METOPROLOL TARTRATE 25MG TABLET PO SCH ×2 (09:00→21:59)
[2019-11-02 09:21] LABS: CREATINE KINASE 62 IU/L (26-192)
[2019-11-02 09:22] LABS: CREATINE KINASE MB FRACTION 1.5 ng/mL (0.5-3.6)
[2019-11-02] MEDS: ENOXAPARIN 30MG/0.3ML SYR SUBCUT SCH (09:38)
[2019-11-02] MEDS: SEVELAMER CARBONATE 800 MG TABLET PO SCH ×3 (09:39→17:53)
[2019-11-02] MEDS: ASCORBIC ACID 500 MG TABLET PO SCH ×2 (09:39→21:59)
[2019-11-02] MEDS: FAMOTIDINE 20MG TABLET PO SCH (09:39)
[2019-11-02] MEDS: ASPIRIN 325MG EC TABLET PO SCH (09:39)
[2019-11-02] MEDS: ZINC SULFATE 220 MG ( 50 ) CAPSULE PO SCH (09:39)
[2019-11-02 12:00] VITALS: BP 155/52
[2019-11-02 13:06] LABS: BASOPHILS % 0.9 % (0.0-2.0); EOSINOPHILS % 2.2 % (0.0-5.0); HEMATOCRIT. 26.5 % (36.0-48.0); HEMOGLOBIN. 8.9 g/dL (12.0-16.0); LYMPHOCYTES % 17.2 % (20.0-50.0); MEAN CORPUSCULAR HEMOGLOBIN 29.2 pg (28.0-32.0); MEAN CORPUSCULAR VOLUME 87.2 fL (81.0-99.0); MONOCYTES % 9.6 % (2.0-8.0); NEUTROPHILS % 70.1 % (40.0-76.0); RED BLOOD CELL COUNT 3.05 mill/uL (4.2-5.4); RED CELL DISTRIBUTION WIDTH 16.4 % (11.6-14.6)
[2019-11-02 16:00] VITALS: BP 158/44
[2019-11-02 20:00] VITALS: BP 152/56
[2019-11-02] MEDS: DIPHENHYDRAMINE 50MG/ML VIAL IV PRN (22:06)
[2019-11-03] VITALS: BP 156/78
[2019-11-03 04:00] VITALS: BP 169/76
[2019-11-03] MEDS: HYDRALAZINE HCL 50MG TABLET PO SCH ×3 (05:48→21:33)
[2019-11-03 06:20] VITALS: BP 180/69
[2019-11-03 06:21] LABS: BASOPHILS % 0.8 % (0.0-2.0); HEMATOCRIT. 21.7 % (36.0-48.0); HEMOGLOBIN. 7.3 g/dL (12.0-16.0); LYMPHOCYTES % 18.2 % (20.0-50.0); MEAN CORPUSCULAR VOLUME 86.3 fL (81.0-99.0); MEAN PLATELET VOLUME 10.4 fl (7.4-10.4); MONOCYTES % 11.2 % (2.0-8.0); NEUTROPHILS % 66.8 % (40.0-76.0); PLATELET 157 x1000/uL (130-400); RED BLOOD CELL COUNT 2.51 mill/uL (4.2-5.4); RED CELL DISTRIBUTION WIDTH 15.6 % (11.6-14.6)
[2019-11-03] MEDS: CLONIDINE 0.1MG TABLET PO PRN (06:36)
[2019-11-03] MEDS: BLOOD SUGAR DIAGNOSTIC STRIP TEST SCH ×4 (06:36→21:35)
[2019-11-03] MEDS: INSULIN LISPRO 100 UNITS/ML SUBCUT SCH ×4 (06:37→21:00)
[2019-11-03 08:00] VITALS: BP 163/87
[2019-11-03] MEDS: ASPIRIN 325MG EC TABLET PO SCH (09:09)
[2019-11-03] MEDS: SEVELAMER CARBONATE 800 MG TABLET PO SCH ×3 (09:09→17:48)
[2019-11-03] MEDS: FAMOTIDINE 20MG TABLET PO SCH (09:09)
[2019-11-03] MEDS: ENOXAPARIN 30MG/0.3ML SYR SUBCUT SCH (09:09)
[2019-11-03] MEDS: NIFEDIPINE XL 60MG TAB PO SCH (09:14)
[2019-11-03] MEDS: LISINOPRIL 20MG TABLET PO SCH ×2 (09:15→21:34)
[2019-11-03] MEDS: ZINC SULFATE 220 MG ( 50 ) CAPSULE PO SCH (09:15)
[2019-11-03] MEDS: METOPROLOL TARTRATE 25MG TABLET PO SCH ×2 (09:15→21:33)
[2019-11-03] MEDS: ASCORBIC ACID 500 MG TABLET PO SCH ×2 (09:15→21:30)
[2019-11-03] MEDS: TRAMADOL 50MG TABLET PO PRN (15:28)
[2019-11-03 20:00] VITALS: BP 132/72
[2019-11-03] MEDS ORDERED: EPOETIN ALFA 10000UNITS/ML VIAL SUBCUT SCH (21:00)
[2019-11-03] MEDS: DIPHENHYDRAMINE 50MG/ML VIAL IV PRN (21:30)
[2019-11-04] VITALS (7 sets, daily range): BP systolic 125–207; BP diastolic 52–88
[2019-11-04] MEDS: HYDRALAZINE HCL 50MG TABLET PO SCH ×3 (05:59→21:49)
[2019-11-04 06:56] LABS: BASOPHILS % 0.8 % (0.0-2.0); EOSINOPHILS % 3.6 % (0.0-5.0); HEMATOCRIT. 22.8 % (36.0-48.0); HEMOGLOBIN. 7.8 g/dL (12.0-16.0); MEAN CORPUSCULAR HEMOGLOBIN 29.2 pg (28.0-32.0); MEAN CORPUSCULAR VOLUME 85.7 fL (81.0-99.0); MONOCYTES % 9.6 % (2.0-8.0); PLATELET 143 x1000/uL (130-400); RED BLOOD CELL COUNT 2.67 mill/uL (4.2-5.4); RED CELL DISTRIBUTION WIDTH 15.7 % (11.6-14.6)
[2019-11-04] MEDS: INSULIN LISPRO 100 UNITS/ML SUBCUT SCH ×4 (07:50→21:00)
[2019-11-04] MEDS: BLOOD SUGAR DIAGNOSTIC STRIP TEST SCH ×4 (07:55→21:50)
[2019-11-04] MEDS: FAMOTIDINE 20MG TABLET PO SCH (08:41)
[2019-11-04] MEDS: ZINC SULFATE 220 MG ( 50 ) CAPSULE PO SCH (08:41)
[2019-11-04] MEDS: SEVELAMER CARBONATE 800 MG TABLET PO SCH ×3 (08:41→18:25)
[2019-11-04] MEDS: ASCORBIC ACID 500 MG TABLET PO SCH ×2 (08:42→21:49)
[2019-11-04] MEDS: NIFEDIPINE XL 60MG TAB PO SCH (08:42)
[2019-11-04] MEDS: METOPROLOL TARTRATE 25MG TABLET PO SCH ×2 (08:42→21:50)
[2019-11-04] MEDS: LISINOPRIL 20MG TABLET PO SCH ×2 (08:42→21:49)
[2019-11-04] MEDS: CLONIDINE 0.1MG TABLET PO PRN (11:35)
[2019-11-05] VITALS: BP 114/58
[2019-11-05 04:00] VITALS: BP 152/61
[2019-11-05] MEDS: BLOOD SUGAR DIAGNOSTIC STRIP TEST SCH ×2 (06:21→12:27)
[2019-11-05] MEDS: HYDRALAZINE HCL 50MG TABLET PO SCH ×2 (06:21→13:03)
[2019-11-05] MEDS: INSULIN LISPRO 100 UNITS/ML SUBCUT SCH ×2 (07:50→12:33)
[2019-11-05] MEDS: SEVELAMER CARBONATE 800 MG TABLET PO SCH ×2 (07:50→12:33)
[2019-11-05 08:00] VITALS: BP 174/70
[2019-11-05] MEDS: TRAMADOL 50MG TABLET PO PRN (08:30)
[2019-11-05] MEDS: NIFEDIPINE XL 60MG TAB PO SCH (09:00)
[2019-11-05] MEDS: LISINOPRIL 20MG TABLET PO SCH (09:00)
[2019-11-05] MEDS: ASCORBIC ACID 500 MG TABLET PO SCH (09:00)
[2019-11-05] MEDS: FAMOTIDINE 20MG TABLET PO SCH (09:00)
[2019-11-05] MEDS: ZINC SULFATE 220 MG ( 50 ) CAPSULE PO SCH (09:00)
[2019-11-05] MEDS: METOPROLOL TARTRATE 25MG TABLET PO SCH (09:00)
[2019-11-05 12:00] VITALS: BP 164/57
[2019-11-05] MEDS: CLONIDINE 0.1MG TABLET PO PRN (12:32)
[2019-11-05 12:54] VITALS: BP 164/57
[2019-11-10] MEDS ORDERED: TAMO10TA MT (14:43)
== END 2019-11-05 16:30 | DRG 637 ==
LOC: ER 12:49 → EDBEDREQTM 16:30 → EDBEDREQ 16:30 → ENRESERV 11-02 03:23 → 6WST 11-02 04:24
PROVIDERS: ADMIT Internal Medicine; ATTEND Internal Medicine
PROC: 5A1D70Z Performance of Urinary Filtration, Intermittent, Less than 6 Hours Per Day (ICD-10-PCS; 2019-11-02)
PROC: 5A1D70Z Performance of Urinary Filtration, Intermittent, Less than 6 Hours Per Day (ICD-10-PCS; 2019-11-03)
PROC: 5A1D70Z Performance of Urinary Filtration, Intermittent, Less than 6 Hours Per Day (ICD-10-PCS; principal; 2019-11-05)
DX: E11.649 Type 2 diabetes mellitus with hypoglycemia without coma (principal); G93.41 Metabolic encephalopathy; I12.0 Hypertensive chronic kidney disease with stage 5 chronic kidney disease or end stage renal disease; G82.50 Quadriplegia, unspecified; N18.6 End stage renal disease; E11.22 Type 2 diabetes mellitus with diabetic chronic kidney disease; D72.829 Elevated white blood cell count, unspecified; S91.311A Laceration without foreign body, right foot, initial encounter; X58.XXXA Exposure to other specified factors, initial encounter; E78.00 Pure hypercholesterolemia, unspecified; E78.5 Hyperlipidemia, unspecified; R26.9 Unspecified abnormalities of gait and mobility; D63.8 Anemia in other chronic diseases classified elsewhere; Z79.4 Long term (current) use of insulin; Z99.2 Dependence on renal dialysis; I69.320 Aphasia following cerebral infarction; Z82.49 Family history of ischemic heart disease and other diseases of the circulatory system; Z83.3 Family history of diabetes mellitus; Z85.3 Personal history of malignant neoplasm of breast; Z88.6 Allergy status to analgesic agent; Z88.2 Allergy status to sulfonamides; Z79.82 Long term (current) use of aspirin; Z79.899 Other long term (current) drug therapy; Z90.12 Acquired absence of left breast and nipple; Z89.421 Acquired absence of other right toe(s); Z56.0 Unemployment, unspecified; Y93.89 Activity, other specified; Y92.89 Other specified places as the place of occurrence of the external cause; Y99.8 Other external cause status
CPT/HCPCS: 36415; 71045; 80048; 80053; 82550; 82553; 82962; 83036; 84484; 85025; 93005; 97162; 97166; 97530; 97535; 99285; J0360; J0885; J1200; J1610; J1650; J1815; J2405

== ENCOUNTER 2019-11-30 13:29 | Inpatient (IN) | payer MEDICARE, MEDICAID ==
[~2019-11-30] VITALS: Ht 167.6 cm; Wt 70.3 kg
[~2019-11-30 13:29] MED LIST changes: +TAMO10TA MT
[2019-11-30] MEDS ORDERED: LEVOFLOXACIN 500MG PREMIX 100 ML IV ONE (14:30)
[2019-11-30 16:52] LABS: BASOPHILS % 1.1 % (0.0-2.0); EOSINOPHILS % 0.1 % (0.0-5.0); HEMATOCRIT. 22.4 % (36.0-48.0); HEMOGLOBIN. 7.6 g/dL (12.0-16.0); MEAN CORPUSCULAR HEMOGLOBIN 29.5 pg (28.0-32.0); MEAN CORPUSCULAR VOLUME 86.5 fL (81.0-99.0); MEAN PLATELET VOLUME 10.7 fl (7.4-10.4); MONOCYTES % 11.9 % (2.0-8.0); NEUTROPHILS % 70.9 % (40.0-76.0); PLATELET 160 x1000/uL (130-400); RED BLOOD CELL COUNT 2.59 mill/uL (4.2-5.4); RED CELL DISTRIBUTION WIDTH 16.8 % (11.6-14.6)
[2019-11-30 16:53] LABS: CHLORIDE 102 mEq/L (98-107)
[2019-11-30 16:57] LABS: D-DIMER 0.92 mg/L FEU (<0.50); PROTHROMBIN TIME 10.6 sec (9.6-11.0)
[2019-11-30 17:01] LABS: CREATINE KINASE 294 IU/L (26-192)
[2019-11-30 17:08] LABS: PHOSPHORUS 8.5 mg/dL (2.5-4.9)
[2019-11-30] MEDS ORDERED: AZITHROMYCIN 500 MG in DEXT 5% WATER 250 ML IV SCH (17:30)
[2019-11-30] MEDS ORDERED: NITROGLYCERIN 0.4MG TABLET SL SL PRN (17:30)
[2019-11-30] MEDS ORDERED: IPRATROPIUM/ALBUTEROL 0.5-3(2.5)MG/3ML NEB ORI PRN (17:30)
[2019-11-30] MEDS ORDERED: NIFEDIPINE XL 60MG TAB PO SCH (17:30)
[2019-11-30] MEDS ORDERED: ENOXAPARIN 30MG/0.3ML SYR SUBCUT SCH (17:30)
[2019-11-30] MEDS ORDERED: ONDANSETRON HCL 4MG/2ML INJ IV PRN (17:30)
[2019-11-30] MEDS ORDERED: DIPHENHYDRAMINE 50MG/ML VIAL IV PRN (17:30)
[2019-11-30] MEDS ORDERED: TRAMADOL 50MG TABLET PO PRN (17:30)
[2019-11-30] MEDS ORDERED: ACETAMINOPHEN 325MG TABLET PO PRN (17:30)
[2019-11-30] MEDS ORDERED: MAGNESIUM/ALUMINUM HYDROXIDE/SIMETHICONE 30ML UDC PO PRN (17:30)
[2019-11-30] MEDS ORDERED: GUAIFENESIN 200MG/10ML SUGAR FREE UDC PO PRN (17:30)
[2019-11-30] MEDS ORDERED: LORAZEPAM 2MG/ML CPJ IV SCH (17:30)
[2019-11-30] MEDS ORDERED: GUAIFENESIN/DM 600MG/30MG ER TAB 12HR PO SCH (17:30)
[2019-11-30] MEDS ORDERED: ZOLPIDEM TARTRATE 5MG TABLET PO PRN (21:00)
[2019-11-30] MEDS: METOPROLOL TARTRATE 25MG TABLET PO SCH (22:10)
[2019-11-30] MEDS: ASCORBIC ACID 500 MG TABLET PO SCH (22:11)
[2019-11-30] MEDS ORDERED: ASPIRIN 81MG TABLET PO SCH (23:00)
[2019-11-30] MEDS: ATORVASTATIN CALCIUM 20MG TABLET PO SCH (23:58)
[2019-12-01 00:04] LABS: CREATINE KINASE MB FRACTION 6.5 ng/mL (0.5-3.6)
[2019-12-01 01:15] VITALS: BP 181/92
[2019-12-01] MEDS: CLONIDINE 0.1MG TABLET PO PRN (02:58)
[2019-12-01] MEDS ORDERED: CEFTRIAXONE 1 G PREMIX 50 ML IV SCH (03:00)
[2019-12-01 04:00] VITALS: BP 178/72
[2019-12-01] MEDS: SEVELAMER CARBONATE 800 MG TABLET PO SCH ×3 (08:10→18:10)
[2019-12-01] MEDS: GUAIFENESIN/DM 600MG/30MG ER TAB 12HR PO SCH ×2 (09:00→21:38)
[2019-12-01] MEDS: ZINC SULFATE 220 MG ( 50 ) CAPSULE PO SCH (09:00)
[2019-12-01] MEDS ORDERED: ASPIRIN 81MG TABLET PO SCH (09:00)
[2019-12-01] MEDS: ASCORBIC ACID 500 MG TABLET PO SCH ×2 (09:00→21:38)
[2019-12-01 10:44] LABS: CREATINE KINASE MB FRACTION 6.6 ng/mL (0.5-3.6)
[2019-12-01 12:11] VITALS: BP 150/128
[2019-12-01] MEDS: ENOXAPARIN 30MG/0.3ML SYR SUBCUT SCH (12:27)
[2019-12-01] MEDS: NIFEDIPINE XL 60MG TAB PO SCH (12:28)
[2019-12-01] MEDS: METOPROLOL TARTRATE 25MG TABLET PO SCH ×2 (12:28→21:40)
[2019-12-01] MEDS ORDERED: ALBUTEROL (0.5%) 2.5MG/0.5ML NEB HHN PRN (15:15)
[2019-12-01] MEDS ORDERED: ALBUTEROL (0.083%) 2.5MG/3ML NEB HHN PRN (15:15)
[2019-12-01 16:21] LABS: BG BASE EXCESS -12.5 mmol/L (-2.0-2.0); BG CARBOXYHEMOGLOBIN 0.3 % (0.5-1.5); BG DEOXYHEMOGLOBIN 9.6 % (0.0-5.0); BG FRACTION INSPIRED OXYGEN 44; BG METHEMOGLOBIN 0.2 % (0.0-1.5); BG OXYGEN SATURATION 90.4 % (92.0-98.5); BG OXYHEMOGLOBIN 89.9 % (94.0-97.0); BG PCO2 28.4 mmHg (35.0-45.0); BG PO2 77.2 mmHg (75.0-100.0); BG SAMPLE SITE RIGHT RADIAL; BG TOTAL HEMOGLOBIN 6.6 g/dL (12.0-18.0); BG VENT MODE NASAL CANNULA
[2019-12-01 16:23] VITALS: BP 124/43
[2019-12-01] MEDS ORDERED: ENOXAPARIN 40MG/0.4ML SYR SUBCUT SCH (17:30)
[2019-12-01] MEDS ORDERED: AZITHROMYCIN 500 MG in DEXT 5% WATER 250 ML IV SCH ×2 (18:00→20:00)
[2019-12-01] MEDS ORDERED: HYDRALAZINE 20MG/ML VIAL IV NR (18:30)
[2019-12-01 20:00] VITALS: BP 174/94
[2019-12-01] MEDS: ATORVASTATIN CALCIUM 20MG TABLET PO SCH (21:38)
[2019-12-01] MEDS: AZITHROMYCIN 500 MG in DEXT 5% WATER 250 ML IV SCH (21:51)
[2019-12-02] VITALS (16 sets, daily range): BP systolic 77–185; BP diastolic 38–74
[2019-12-02] MEDS: CLONIDINE 0.1MG TABLET PO PRN (04:52)
[2019-12-02] MEDS: CEFTRIAXONE 1 G PREMIX 50 ML IV SCH (05:37)
[2019-12-02] MEDS: NIFEDIPINE XL 60MG TAB PO SCH (09:25)
[2019-12-02] MEDS: SEVELAMER CARBONATE 800 MG TABLET PO SCH ×3 (09:25→18:28)
[2019-12-02] MEDS: ACETAMINOPHEN 325MG TABLET PO PRN (09:25)
[2019-12-02] MEDS: GUAIFENESIN/DM 600MG/30MG ER TAB 12HR PO SCH ×2 (09:25→21:00)
[2019-12-02] MEDS: ASCORBIC ACID 500 MG TABLET PO SCH ×2 (09:25→21:00)
[2019-12-02] MEDS: ZINC SULFATE 220 MG ( 50 ) CAPSULE PO SCH (09:25)
[2019-12-02] MEDS: ENOXAPARIN 30MG/0.3ML SYR SUBCUT SCH (09:25)
[2019-12-02] MEDS: METOPROLOL TARTRATE 25MG TABLET PO SCH ×2 (09:26→21:00)
[2019-12-02 11:22] LABS: MEAN CORPUSCULAR HEMOGLOBIN 29.2 pg (28.0-32.0); MEAN CORPUSCULAR VOLUME 86.7 fL (81.0-99.0); MEAN PLATELET VOLUME 10.6 fl (7.4-10.4); PLATELET 114 x1000/uL (130-400); RED BLOOD CELL COUNT 2.02 mill/uL (4.2-5.4); RED CELL DISTRIBUTION WIDTH 16.3 % (11.6-14.6)
[2019-12-02 11:30] LABS: HEMOGLOBIN. 5.9 g/dL (12.0-16.0)
[2019-12-02 11:31] LABS: HEMATOCRIT. 17.5 % (36.0-48.0)
[2019-12-02 11:45] LABS: CHLORIDE 111 mEq/L (98-107)
[2019-12-02 12:05] LABS: PLATELET ESTIMATE DECREASED
[2019-12-02] MEDS: ALBUTEROL 6.7GM HFA INHALER ORI SCH (14:00)
[2019-12-02 14:16] LABS: BG BASE EXCESS -5.5 mmol/L (-2.0-2.0); BG CARBOXYHEMOGLOBIN 0.3 % (0.5-1.5); BG DEOXYHEMOGLOBIN 9.1 % (0.0-5.0); BG FRACTION INSPIRED OXYGEN 100; BG HCO3 ACT 18.6 mmol/L (22.0-26.0); BG OXYGEN SATURATION 90.9 % (92.0-98.5); BG OXYHEMOGLOBIN 90.6 % (94.0-97.0); BG PCO2 30.4 mmHg (35.0-45.0); BG PH 7.405 (7.350-7.450); BG PO2 67.5 mmHg (75.0-100.0); BG SAMPLE SITE RIGHT RADIAL; BG VENT MODE MASK - NRB
[2019-12-02] MEDS: METHYLPREDNISOLONE SOD SUCC 40 MG/ML VIAL IV SCH ×2 (16:08→21:00)
[2019-12-02] MEDS: ATORVASTATIN CALCIUM 20MG TABLET PO SCH (21:00)
[2019-12-02] MEDS: AZITHROMYCIN 500 MG in DEXT 5% WATER 250 ML IV SCH (21:30)
[2019-12-02] MEDS ORDERED: DOPAMINE 800MG PREMIX (DOUBLE) 250 ML IV PRN (22:00)
[2019-12-02] MEDS ORDERED: NOREPINEPHRINE 32 MG in DEXT 5% WATER 468 ML IV PRN (22:00)
[2019-12-02] MEDS ORDERED: DEXT 5% IV PRN (22:15)
[2019-12-02] MEDS ORDERED: WATER IV PRN (22:15)
[2019-12-02] MEDS ORDERED: DOPAMINE HCL IV PRN (22:15)
[2019-12-03] VITALS (80 sets, daily range): BP systolic 55–204; BP diastolic 16–176
[2019-12-03] MEDS: PROPOFOL 10MG/ML 100ML 100 ML IV SCH ×5 (01:00→22:17)
[2019-12-03 04:41] LABS: BG CARBOXYHEMOGLOBIN 0.1 % (0.5-1.5); BG DEOXYHEMOGLOBIN 1.9 % (0.0-5.0); BG FRACTION INSPIRED OXYGEN 100; BG HCO3 ACT 6.9 mmol/L (22.0-26.0); BG METHEMOGLOBIN 2.1 % (0.0-1.5); BG OXYGEN SATURATION 98.1 % (92.0-98.5); BG OXYHEMOGLOBIN 95.9 % (94.0-97.0); BG PCO2 22.9 mmHg (35.0-45.0); BG PH 7.096 (7.350-7.450); BG PO2 286.3 mmHg (75.0-100.0); BG SAMPLE SITE RIGHT BRACHIAL; BG TIDAL VOLUME(mL) 450 mL; BG TOTAL HEMOGLOBIN 7.5 g/dL (12.0-18.0); BG VENT MODE VENT - A/C; BG VENT RATE 18 set
[2019-12-03 05:42] LABS: MEAN CORPUSCULAR HEMOGLOBIN 29.8 pg (28.0-32.0); MEAN CORPUSCULAR VOLUME 91.5 fL (81.0-99.0); MEAN PLATELET VOLUME 12.2 fl (7.4-10.4); PLATELET 141 x1000/uL (130-400); RED BLOOD CELL COUNT 2.18 mill/uL (4.2-5.4); RED CELL DISTRIBUTION WIDTH 16.1 % (11.6-14.6)
[2019-12-03] MEDS: CEFTRIAXONE 1 G PREMIX 50 ML IV SCH (06:00)
[2019-12-03 06:16] LABS: HEMATOCRIT. 19.9 % (36.0-48.0); HEMOGLOBIN. 6.5 g/dL (12.0-16.0)
[2019-12-03] MEDS ORDERED: SODIUM BICARBONATE 8.4% 1 MEQ/ML 50ML SYR IV NR ×3 (06:30→06:44)
[2019-12-03] MEDS: SEVELAMER CARBONATE 800 MG TABLET PO SCH ×3 (07:00→17:25)
[2019-12-03] MEDS ORDERED: VANCOMYCIN 1500MG in DEXTROSE 5% WATER 250ML IV NR (08:00)
[2019-12-03 08:49] LABS: PLATELET ESTIMATE NORMAL
[2019-12-03] MEDS: METOPROLOL TARTRATE 25MG TABLET PO SCH ×2 (09:00→20:24)
[2019-12-03] MEDS: GUAIFENESIN/DM 600MG/30MG ER TAB 12HR PO SCH ×2 (09:00→21:50)
[2019-12-03] MEDS: ZINC SULFATE 220 MG ( 50 ) CAPSULE PO SCH (09:00)
[2019-12-03] MEDS: METHYLPREDNISOLONE SOD SUCC 40 MG/ML VIAL IV SCH ×2 (09:00→21:50)
[2019-12-03] MEDS: ASCORBIC ACID 500 MG TABLET PO SCH ×2 (09:00→21:50)
[2019-12-03] MEDS ORDERED: LIDOCAINE HCL 1% 20ML VIAL (Pyxis) INJ ONE (09:36)
[2019-12-03] MEDS: DOCUSATE SODIUM 100MG CAPSULE PO PRN (10:22)
[2019-12-03] MEDS: NIFEDIPINE XL 60MG TAB PO SCH (10:29)
[2019-12-03] MEDS: SODIUM BICARBONATE 150 MEQ in DEXTROSE 5% WATER 1,000 ML IV SCH (11:17)
[2019-12-03] MEDS: ACETAMINOPHEN 325MG TABLET PO PRN ×2 (12:12→21:50)
[2019-12-03 13:23] LABS: COVID-19 PCR RNA DETECTED
[2019-12-03 13:24] LABS: COVID-19 PCR RNA DETECTED
[2019-12-03 15:16] LABS: BG BASE EXCESS -5.2 mmol/L (-2.0-2.0); BG CARBOXYHEMOGLOBIN 0.3 % (0.5-1.5); BG FRACTION INSPIRED OXYGEN 100; BG METHEMOGLOBIN 0.4 % (0.0-1.5); BG OXYHEMOGLOBIN 98.3 % (94.0-97.0); BG PH 7.405 (7.350-7.450); BG PO2 241.2 mmHg (75.0-100.0); BG SAMPLE SITE OTHER; BG TIDAL VOLUME(mL) 450 mL; BG TOTAL HEMOGLOBIN 7.1 g/dL (12.0-18.0); BG VENT MODE VENT - A/C; BG VENT RATE 24 set
[2019-12-03] MEDS: CEFEPIME 1,000 MG in DEXTROSE 5% WATER 50 ML IV SCH (17:29)
[2019-12-03] MEDS: ALBUTEROL 6.7GM HFA INHALER ORI SCH (20:25)
[2019-12-03] MEDS: ATORVASTATIN CALCIUM 20MG TABLET PO SCH (21:50)
[2019-12-03] MEDS: AZITHROMYCIN 500 MG in DEXT 5% WATER 250 ML IV SCH (21:51)
[2019-12-04] VITALS (49 sets, daily range): BP systolic 113–164; BP diastolic 46–84
[2019-12-04] MEDS: ALBUTEROL 6.7GM HFA INHALER ORI SCH ×4 (00:40→20:42)
[2019-12-04] MEDS: SODIUM BICARBONATE 150 MEQ in DEXTROSE 5% WATER 1,000 ML IV SCH (01:15)
[2019-12-04] MEDS: PROPOFOL 10MG/ML 100ML 100 ML IV PRN ×3 (02:36→12:31)
[2019-12-04] MEDS: SEVELAMER CARBONATE 800 MG TABLET PO SCH ×3 (06:19→16:34)
[2019-12-04 06:33] LABS: HEMATOCRIT. 24.2 % (36.0-48.0); HEMOGLOBIN. 8.6 g/dL (12.0-16.0); PLATELET 96 x1000/uL (130-400); RED BLOOD CELL COUNT 2.78 mill/uL (4.2-5.4); RED CELL DISTRIBUTION WIDTH 15.6 % (11.6-14.6)
[2019-12-04] MEDS: GUAIFENESIN/DM 600MG/30MG ER TAB 12HR PO SCH ×2 (09:00→21:37)
[2019-12-04] MEDS: NIFEDIPINE XL 60MG TAB PO SCH (09:00)
[2019-12-04 09:15] LABS: BG CARBOXYHEMOGLOBIN 0.3 % (0.5-1.5); BG DEOXYHEMOGLOBIN 8.7 % (0.0-5.0); BG HCO3 ACT 24.5 mmol/L (22.0-26.0); BG METHEMOGLOBIN 0.2 % (0.0-1.5); BG OXYGEN SATURATION 91.3 % (92.0-98.5); BG OXYHEMOGLOBIN 90.8 % (94.0-97.0); BG PCO2 34.5 mmHg (35.0-45.0); BG PO2 64.8 mmHg (75.0-100.0); BG SAMPLE SITE RIGHT RADIAL; BG TIDAL VOLUME(mL) 450 mL; BG TOTAL HEMOGLOBIN 8.6 g/dL (12.0-18.0); BG VENT MODE VENT - A/C; BG VENT RATE 24 set
[2019-12-04] MEDS: ASCORBIC ACID 500 MG TABLET PO SCH ×2 (09:15→21:37)
[2019-12-04] MEDS: DOCUSATE SODIUM 100MG CAPSULE PO PRN (09:16)
[2019-12-04] MEDS: METOPROLOL TARTRATE 25MG TABLET PO SCH ×2 (09:16→21:37)
[2019-12-04] MEDS: METHYLPREDNISOLONE SOD SUCC 40 MG/ML VIAL IV SCH ×2 (09:16→21:00)
[2019-12-04] MEDS: ZINC SULFATE 220 MG ( 50 ) CAPSULE PO SCH (09:18)
[2019-12-04] MEDS: MIDAZOLAM HCL 100 MG in DEXT 5% WATER 80 ML IV PRN (13:31)
[2019-12-04] MEDS: FENTANYL CITRATE/PF 1,000 MCG in SODIUM CHLORIDE 0.9% 80 ML IV PRN (13:32)
[2019-12-04 13:43] LABS: NUCLEATED RED BLOOD CELLS 2 /100 WBC
[2019-12-04 13:44] LABS: PLATELET ESTIMATE DECREASED
[2019-12-04] MEDS: CEFEPIME 1,000 MG in DEXTROSE 5% WATER 50 ML IV SCH (14:32)
[2019-12-04] MEDS ORDERED: VANCOMYCIN 1 G PREMIX 200 ML IV SCH (16:00)
[2019-12-04] MEDS ORDERED: VANCOMYCIN 1,000 MG in DEXT 5% WATER 250 ML IV SCH (16:00)
[2019-12-04] MEDS: ATORVASTATIN CALCIUM 20MG TABLET PO SCH (21:37)
[2019-12-04] MEDS: AZITHROMYCIN 500 MG in DEXT 5% WATER 250 ML IV SCH (21:38)
[2019-12-05] VITALS (50 sets, daily range): BP systolic 83–142; BP diastolic 43–87
[2019-12-05] MEDS: FENTANYL CITRATE/PF 1,000 MCG in SODIUM CHLORIDE 0.9% 80 ML IV PRN (05:23)
[2019-12-05 05:55] LABS: HEMATOCRIT. 25.2 % (36.0-48.0); HEMOGLOBIN. 8.8 g/dL (12.0-16.0); MEAN CORPUSCULAR HEMOGLOBIN 30.4 pg (28.0-32.0); MEAN CORPUSCULAR VOLUME 87.3 fL (81.0-99.0); MEAN PLATELET VOLUME 11.9 fl (7.4-10.4); PLATELET 91 x1000/uL (130-400); RED BLOOD CELL COUNT 2.89 mill/uL (4.2-5.4); RED CELL DISTRIBUTION WIDTH 15.7 % (11.6-14.6)
[2019-12-05] MEDS: ASCORBIC ACID 500 MG TABLET PO SCH (08:07)
[2019-12-05] MEDS: METHYLPREDNISOLONE SOD SUCC 40 MG/ML VIAL IV SCH (08:07)
[2019-12-05] MEDS: NIFEDIPINE XL 60MG TAB PO SCH (08:08)
[2019-12-05] MEDS: METOPROLOL TARTRATE 25MG TABLET PO SCH (08:08)
[2019-12-05] MEDS: SEVELAMER CARBONATE 800 MG TABLET PO SCH ×3 (08:08→16:50)
[2019-12-05] MEDS: GUAIFENESIN/DM 600MG/30MG ER TAB 12HR PO SCH (08:08)
[2019-12-05] MEDS: MIDAZOLAM HCL 100 MG in DEXT 5% WATER 80 ML IV PRN (08:09)
[2019-12-05] MEDS: ZINC SULFATE 220 MG ( 50 ) CAPSULE PO SCH (08:10)
[2019-12-05 08:23] LABS: BG BASE EXCESS -1.2 mmol/L (-2.0-2.0); BG CARBOXYHEMOGLOBIN 0.3 % (0.5-1.5); BG DEOXYHEMOGLOBIN 1.7 % (0.0-5.0); BG HCO3 ACT 23.3 mmol/L (22.0-26.0); BG METHEMOGLOBIN 0.4 % (0.0-1.5); BG OXYGEN SATURATION 98.3 % (92.0-98.5); BG OXYHEMOGLOBIN 97.6 % (94.0-97.0); BG PCO2 37.9 mmHg (35.0-45.0); BG PH 7.407 (7.350-7.450); BG PO2 141.2 mmHg (75.0-100.0); BG SAMPLE SITE RIGHT RADIAL; BG TIDAL VOLUME(mL) 450 mL; BG TOTAL HEMOGLOBIN 8.1 g/dL (12.0-18.0); BG VENT MODE VENT - A/C; BG VENT RATE 20 set
[2019-12-05 09:13] LABS: NUCLEATED RED BLOOD CELLS 2 /100 WBC
[2019-12-05 09:14] LABS: PLATELET ESTIMATE DECREASED
[2019-12-05] MEDS ORDERED: MORPHINE SULFATE 250 MG in DEXT 5% WATER 240 ML IV PRN (13:00)
[2019-12-05] MEDS: ALBUTEROL 6.7GM HFA INHALER ORI SCH (14:03)
[2019-12-05] MEDS: CEFEPIME 1,000 MG in DEXTROSE 5% WATER 50 ML IV SCH (15:00)
== END 2019-12-05 20:06 | disposition expired | DRG 208 ==
LOC: ER 13:29 → EDBEDREQ 14:23 → EDBEDREQTM 16:29 → EDBEDREQ 16:29 → 7WST 17:18 → EDBEDREQTM 17:31 → ENRESERV 23:32 → MICUNO 12-02 21:50
PROVIDERS: ADMIT Internal Medicine; ATTEND Internal Medicine
PROC: 5A1D70Z Performance of Urinary Filtration, Intermittent, Less than 6 Hours Per Day (ICD-10-PCS; 2019-12-01)
PROC: 5A1945Z Respiratory Ventilation, 24-96 Consecutive Hours (ICD-10-PCS; principal; 2019-12-02)
PROC: 5A1D70Z Performance of Urinary Filtration, Intermittent, Less than 6 Hours Per Day (ICD-10-PCS; 2019-12-02)
PROC: 0BH17EZ Insertion of Endotracheal Airway into Trachea, Via Natural or Artificial Opening (ICD-10-PCS; 2019-12-03)
PROC: B54MZZA Ultrasonography of Right Upper Extremity Veins, Guidance (ICD-10-PCS; 2019-12-03)
PROC: 05HY33Z Insertion of Infusion Device into Upper Vein, Percutaneous Approach (ICD-10-PCS; 2019-12-03)
PROC: 30233N1 Transfusion of Nonautologous Red Blood Cells into Peripheral Vein, Percutaneous Approach (ICD-10-PCS; 2019-12-03)
PROC: 5A1D70Z Performance of Urinary Filtration, Intermittent, Less than 6 Hours Per Day (ICD-10-PCS; 2019-12-03)
PROC: 5A1D70Z Performance of Urinary Filtration, Intermittent, Less than 6 Hours Per Day (ICD-10-PCS; 2019-12-05)
DX: U07.1 COVID-19 (principal); J96.01 Acute respiratory failure with hypoxia; N18.6 End stage renal disease; J12.89 Other viral pneumonia; I50.30 Unspecified diastolic (congestive) heart failure; I13.2 Hypertensive heart and chronic kidney disease with heart failure and with stage 5 chronic kidney disease, or end stage renal disease; E87.2 Acidosis; Z66 Do not resuscitate; I48.91 Unspecified atrial fibrillation; D63.1 Anemia in chronic kidney disease; E83.39 Other disorders of phosphorus metabolism; E83.41 Hypermagnesemia; D69.6 Thrombocytopenia, unspecified; E11.22 Type 2 diabetes mellitus with diabetic chronic kidney disease; E11.51 Type 2 diabetes mellitus with diabetic peripheral angiopathy without gangrene; E87.5 Hyperkalemia; I69.320 Aphasia following cerebral infarction; Z82.49 Family history of ischemic heart disease and other diseases of the circulatory system; Z83.3 Family history of diabetes mellitus; Z85.3 Personal history of malignant neoplasm of breast; Z86.711 Personal history of pulmonary embolism; Z90.12 Acquired absence of left breast and nipple; Z91.19 Patient's noncompliance with other medical treatment and regimen; Z99.2 Dependence on renal dialysis; Z88.2 Allergy status to sulfonamides; Z91.013 Allergy to seafood; Z79.82 Long term (current) use of aspirin; Z79.899 Other long term (current) drug therapy; Z88.6 Allergy status to analgesic agent; Z89.421 Acquired absence of other right toe(s)
CPT/HCPCS: 36415; 36600; 71045; 76937; 80048; 80053; 80202; 82375; 82550; 82553; 82728; 82805; 82962; 83036; 83605; 83615; 83735; 83880; 84100; 84145; 84478; 84484; 85025; 85379; 85384; 86140; 86850; 86900; 86920; 93005; 93970; 96365; 99291; C1725; J0360; J0456; J0692; J0696; J1200; J1265; J1650; J1956; J2060; J2250; J2405; J2704; J2920; J3010; J3370; J3490; J7050; J7060; J7070; P9016; U0001